=== PATIENT | female | born 1995 | race African-American/Black ===

== ENCOUNTER 2018-09-25 01:10 | Emergency (ER) | payer BC, OTHER ==
--- OUTSIDE RECORDS SUMMARY | 2018-09-25 01:12 | XMS REPORT ---
:1995 [facility] Address [address] [place] [address] Dr. Luevano [address] [place] [id number] Care Team Providers Name Role Phone Unavailable Unavailable Unavailable Problems This patient has no known problems. Allergies, Adverse Reactions, Alerts This patient has no known allergies or adverse reactions. Medications This patient has no known medications.
--- OUTSIDE RECORDS SUMMARY | 2018-09-25 01:12 | XMS REPORT | Clinical Summary ---
:1995 Author Organization [facility] Address [address] [place] [address] Care Team Providers Name Role Phone Yancy_Carrie Raymon A Primary Care Provider Unavailable Allergies No Known Allergies Medications Medication Sig Dispensed Refills Start Date End Date Status naproxen sodium Take 220 mg by 0 Active (ALEVE) 220 MG tablet mouth as needed for mild pain. etonogestrel 68 mg by subdermal route 0 Active implant once. Right arm implanted in November Active Problems No known active problems Social History Tobacco Use Types Packs/Day Years Used Date Never Smoker Smokeless Tobacco: Never Used Alcohol Use Drinks/Week oz/Week Comments Yes rarely Sex Assigned at Date Recorded Not on file Job Start Date Occupation Industry Not on file Not on file Not on file Travel History Travel Start Travel End No recent travel history available. Last Filed Vital Signs Not on file Plan of Treatment Health Maintenance Due Date Last Done Comments CHLAMYDIA SCREENING 2009 CERVICAL CANCER SCREENING 2014 INFLUENZA VACCINE 04/05/2018 Implants Implanted Type Area Storage Manager Device Shelf Model / Identifier Expiration Serial / Date Lot Catheter Angio Beam Department Supervisor Ii 5fr 65cm Selc Braidd Torque [place] - [id number] Surgical N/A: N/A [facility] PER[facility]HERAL [id number] / Implanted: 06/25/2016 (Quantity not on file) Implants; INTERVENTION / Expanders; VASCULAR CARMELLA Extenders; Surgical Wires Catheter Hand Button Splitter Tracy 6fr 75cm [id number] 0.035in H-Pres - [id number] Surgical N/A : N/A JERRY [id number] / Implanted: 06/25/2016 (Quantity not on file) Implants; SCIENTIFIC ANDREINA / Expanders; Extenders; Surgical Wires Cath Hand Button Splitter 7fr Ball 80cm X 2.0 12mm Advance 35lp - [id number] Surgical N/A: N/A COOK PERIPHERAL [id number] / Implanted: 06/25/2016 (Quantity not on file) Implants; INTERVENTION / Expanders; Extenders; Surgical Wires Results Not on fileafter 09/24/2017 Insurance Payer Benefit Plan / Group Subscriber ID Type Phone Address BCBS BCBS CHOICE PPO/FEDERAL EMPL PPO xxxxxxxxxxxx PPO Advance Directives Patient has advance care planning documents on file. For more information, please contact:Dominick Beckham[address] [place] [address]
[2018-09-25] MEDS ORDERED: ONDANSETRON 4 MG/2 ML VIAL ONE (01:40)
[2018-09-25] MEDS ORDERED: NA CHLORIDE 0.9% 1,000 ML ONE (01:40)
[2018-09-25] MEDS ORDERED: KETOROLAC 30 MG/ML INJ ONE (01:40)
[2018-09-25 02:27] LABS: Absolute Lymphocytes (CBC) 4.2 K/uL (0.7-4.9); Absolute Monocytes 0.5 K/uL (0.1-1.3); Absolute Neutrophil 4.4 K/uL (1.8-8.0); Basophils % 2.5 % (0-1.3); Eosinophils % 2.2 % (0-4.4); Hematocrit 35.2 % (36.0-45.0); Lymphocytes % 43.8 % (15.3-44.8); MPV 9.4 fL (7.6-11.3); Monocytes % 5.5 % (3.3-12.3); RBC Red Blood Cell Count 5.19 M/uL (3.86-4.86)
--- NOTE | 2018-09-25 03:13 | ER ---
Nurse's Notes [facility] Name: Cher Ragland Age: 22 yrs Sex: Female : 1995 Arrival Date: 09/25/2018 Time: 01:12 Bed 26 Private MD: Jerardo Alcantar K Diagnosis: Other abdominal pain;Constipation;Nausea and vomiting Presentation: 09/25 01:33 Presenting complaint: Patient states: i have RUQ pain radiating to my chest wall for mg2 the last 30 mins. denies n/v. Transition of care: patient was not received from another setting of care. Onset of symptoms was September 25, 2018 at 01:00. Risk Assessment: Do you want to hurt yourself or someone else? Patient reports no desire to harm self or others. Initial Sepsis Screen: Does the patient meet any 2 criteria? No. Patient's initial sepsis screen is negative. Does the patient have a suspected source of infection? No. Patient's initial sepsis screen is negative. Care prior to arrival: None. 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 - Social history:: Smoking status: Patient/guardian denies using tobacco, Patient/guardian denies using alcohol, street drugs, IV drugs. - Ebola Screening: : No symptoms or risks identified at this time. Screenin:39 Abuse screen: Denies threats or abuse. Denies injuries from another. Nutritional mg2 screening: No deficits noted. Tuberculosis screening: No symptoms or risk factors identified. Fall Risk IV access (20 points). Assessment: 01:36 Reassessment: No changes from previously documented assessment. Pain: Complains of pain tl3 in right upper quadrant Pain began 30 min ago. Neuro: Level of Consciousness is awake, alert, obeys commands, Oriented to person, place, time, situation, Appropriate for age. Cardiovascular: Patient's skin is warm and dry. Respiratory: Airway is patent Respiratory effort is even, unlabored, Respiratory pattern is regular, symmetrical. GI: Bowel sounds present X 4 quads. Abdomen is tender to palpation in right upper quadrant. 01:38 General: Appears in no apparent distress. comfortable, Behavior is calm, cooperative. mg2 Pain: Complains of pain in abdomen Pain radiates to chest Pain currently is 8 out of 10 on a pain scale. Quality of pain is described as aching, Pain began gradually, 30 min ago. Is intermittent. Neuro: Level of Consciousness is awake, alert, obeys commands, Oriented to person, place, time, situation. Cardiovascular: Capillary refill < 3 seconds Patient's skin is warm and dry. Respiratory: Airway is patent Respiratory effort is even, unlabored, Respiratory pattern is regular, symmetrical. GI: Abdomen is round non-distended, Reports upper abdominal pain. : No signs and/or symptoms were reported regarding the genitourinary system. EENT: No signs and/or symptoms were reported regarding the EENT system. Derm: Skin is intact, is healthy with good turgor, Skin is pink, warm \T\ dry. normal. Musculoskeletal: Circulation, motion, and sensation intact. Capillary refill < 3 seconds. 03:07 Reassessment: Patient appears in no apparent distress at this time. No changes from tl3 previously documented assessment. Patient and/or family updated on plan of care and expected duration. Pain level reassessed. Patient is alert, oriented x 3, equal unlabored respirations, skin warm/dry/pink. no needs at this time. 03:35 Reassessment: Patient appears in no apparent distress at this time. No changes from tl3 previously documented assessment. Patient and/or family updated on plan of care and expected duration. Pain level reassessed. Patient is alert, oriented x 3, equal unlabored respirations, skin warm/dry/pink. 03:35 Reassessment: Discussed lab and radiology studies with pt and family. tl3 Vital Signs: 01:34 BP 105 / 65; Pulse 63; Resp 18; Temp 97; Pulse Ox 99% on R/A; Weight 77.11 kg; Height 5 mg2 ft. 2 in. (157.48 cm); Pain 8/10; 03:07 Pulse 62; Resp 18 S; Pulse Ox 99% on R/A; tl3 03:18 BP 115 / 78; tl3 03:35 BP 112 / 72; Pulse 53; Resp 16; Pulse Ox 100% on R/A; tl3 01:34 Body Mass Index 31.09 (77.11 kg, 157.48 cm) mg2 ED Course: 01:12 Patient arrived in ED. am2 01:12 Jerardo Alcantar MD is Private Physician. am2 01:15 Junior Lemon MD is Attending Physician. ps1 01:27 Loyda Lazo RN is Primary Nurse. tl3 01:34 Triage completed. mg2 01:37 Arm band placed on. mg2 01:38 No provider procedures requiring assistance completed. Inserted saline lock: 20 gauge mg2 in right forearm, using aseptic technique. Blood collected. 01:39 Patient has correct armband on for positive identification. Pulse ox on. NIBP on. Door mg2 closed. Warm blanket given. 02:[address] via wheelchair. kw1 02:30 CT completed. Patient vomited copious amounts directly after the arterial phase of the kw1 exam. Was able to complete the exam. Patient moved back from CT. 02:48 Urine --Ancillary (enter results) Sent. tl3 02:48 Urine Dipstick--Ancillary (enter results) Sent. tl3 02:48 CT Abd/Pelvis - W/Contrast Sent. tl3 02:48 CMP Sent. tl3 02:48 CBC with Diff Sent. tl3 02:49 Lipase Sent. tl3 03:39 IV discontinued, intact, bleeding controlled, No redness/swelling at site. Pressure tl3 dressing applied. Administered Medications: 01:34 Drug: Zofran 4 mg Route: PO; tl3 03:06 Follow up: Response: No adverse reaction tl3 01:35 Drug: NS 0.9% 1000 ml Route: IV; Rate: 1 bolus; Site: right antecubital; Delivery: tl3 Primary tubing; 03:40 Follow up: IV Status: Completed infusion; IV Intake: 1000ml tl3 02:30 Drug: TORadol 30 mg Route: IVP; Site: right antecubital; tl3 03:07 Follow up: Response: No adverse reaction tl3 Intake: 03:40 IV: 1000ml; Total: 1000ml. tl3 Outcome: 03:12 Discharge ordered by . ps1 03:39 Discharged to home ambulatory. tl3 03:39 Condition: stable 03:39 Discharge instructions given to patient, family, Instructed on discharge instructions, follow up and referral plans. medication usage, Demonstrated understanding of instructions, follow-up care, medications, Prescriptions given X 3. 03:40 Patient left the ED. tl3 Signatures: Mally Pinto Phillip, MD MD ps1 Devora Shore1 Loyda Lazo, RN RN tl3 Jose Alfredo Portillo RN RN mg2
--- NOTE | 2018-09-25 03:13 | EDPHYS ---
Physician Documentation [facility] Name: Cher Ragland Age: 22 yrs Sex: Female : 1995 Arrival Date: 09/25/2018 Time: 01:12 Bed 26 Private MD: Jerardo Alcantar K ED Physician Junior Lemon HPI: 09/25 03:05 This 22 yrs old Black Female presents to ER via Ambulatory with complaints of Abdominal ps1 Pain. 03:06 patient states that she has had abdominal pain that started this morning that woke her ps1 up. She states that she ate taco soup earlier in the evening. She states that her pain localizes to the RUQ. She had a a month ago without complication. Pain rated as moderate. No fever. . 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 - Social history:: Smoking status: Patient/guardian denies using tobacco, Patient/guardian denies using alcohol, street drugs, IV drugs. - Ebola Screening: : No symptoms or risks identified at this time. ROS: 03:06 Constitutional: Negative for fever, chills, and weight loss, Eyes: Negative for injury, ps1 pain, redness, and discharge, Cardiovascular: Negative for chest pain, palpitations, and edema, Respiratory: Negative for shortness of breath, cough, wheezing, and pleuritic chest pain, MS/Extremity: Negative for injury and deformity, Skin: Negative for injury, rash, and discoloration, Neuro: Negative for headache, weakness, numbness, tingling, and seizure, Psych: Negative for depression, anxiety, suicide ideation, homicidal ideation, and hallucinations. 03:06 Abdomen/GI: Positive for abdominal pain. Exam: 03:06 Constitutional: This is a well developed, well nourished patient who is awake, alert, ps1 and in no acute distress. Head/Face: Normocephalic, atraumatic. Chest/axilla: Normal chest wall appearance and motion. Nontender with no deformity. No lesions are appreciated. Cardiovascular: Regular rate and rhythm. No gallops, murmurs, or rubs. Normal PMI, no JVD. No pulse deficits. Respiratory: Lungs have equal breath sounds bilaterally, clear to auscultation and percussion. No rales, rhonchi or wheezes noted. No increased work of breathing, no retractions or nasal flaring. Skin: Warm, dry with normal turgor. Normal color with no rashes, no lesions, and no evidence of cellulitis. MS/ Extremity: Pulses equal, no cyanosis. Neurovascular intact. Full, normal range of motion. Neuro: Awake and alert, GCS 15, oriented to person, place, time, and situation. Cranial nerves II-XII grossly intact. Sensory grossly intact. 03:06 Abdomen/GI: Inspection: abdomen appears normal, Bowel sounds: normal, Palpation: mild abdominal tenderness, in the right upper quadrant, POCUS ultrasound performed at bedside of Gallbladder. No PCF, GB wall appears normal. CBD appears normal. Small amount of sludge. Overall impression: normal GB. . Vital Signs: 01:34 BP 105 / 65; Pulse 63; Resp 18; Temp 97; Pulse Ox 99% on R/A; Weight 77.11 kg; Height 5 mg2 ft. 2 in. (157.48 cm); Pain 8/10; 03:07 Pulse 62; Resp 18 S; Pulse Ox 99% on R/A; tl3 03:18 BP 115 / 78; tl3 03:35 BP 112 / 72; Pulse 53; Resp 16; Pulse Ox 100% on R/A; tl3 01:34 Body Mass Index 31.09 (77.11 kg, 157.48 cm) mg2 MDM: 01:24 Patient medically screened. ps1 03:06 Data reviewed: vital signs, nurses notes, lab test result(s), radiologic studies, and ps1 as a result, I will discharge patient. 09/25 01:23 Order name: CBC with Diff ps1 09/25 01:23 Order name: Lipase ps1 09/25 01:23 Order name: CMP ps1 09/25 02:08 Order name: Urine Dipstick--Ancillary (enter results) 09/25 02:08 Order name: Urine --Ancillary (enter results) 09/25 02:30 Order name: CBC with Automated Diff EDMS 09/25 01:23 Order name: IV Saline Lock; Complete Time: 01:27 [facility] 09/25 01:23 Order name: Labs collected and sent; Complete Time: 01:28 [facility] 09/25 01:23 Order name: CT Abd/Pelvis - W/Contrast [facility] 09/25 01:24 Order name: Urine Dipstick-Ancillary (obtain specimen); Complete Time: 02:48 ps1 09/25 01:24 Order name: Urine Test (obtain specimen); Complete Time: 02:48 ps1 Administered Medications: 01:34 Drug: Zofran 4 mg Route: PO; tl3 03:06 Follow up: Response: No adverse reaction tl3 01:35 Drug: NS 0.9% 1000 ml Route: IV; Rate: 1 bolus; Site: right antecubital; Delivery: tl3 Primary tubing; 03:40 Follow up: IV Status: Completed infusion; IV Intake: 1000ml tl3 02:30 Drug: TORadol 30 mg Route: IVP; Site: right antecubital; tl3 03:07 Follow up: Response: No adverse reaction tl3 Disposition: 09/25/18 03:12 Discharged to Home. Impression: Other abdominal pain, Constipation, Nausea and vomiting. - Condition is Stable. - Discharge Instructions: Abdominal Pain, Adult, Nausea and Vomiting, Adult. - Prescriptions for magnesium citrate - take 300 milliliter by ORAL route one time; 300 milliliter. Bentyl 10 mg Oral Capsule - take 1 capsule by ORAL route every 6 hours As needed; 40 capsule. Zofran 4 mg Oral Tablet - take 1 tablet by ORAL route every 12 hours As needed; 20 tablet. - Medication Reconciliation Form, Thank You Letter, Antibiotic Education, Prescription Opioid Use, Family Work Release form. - Follow up: Private Physician; When: As needed; Reason: Further diagnostic work-up, Recheck today's complaints, Continuance of care, Re-evaluation by your physician. Follow up: Emergency Department; When: As needed; Reason: Fever > 102 F, Worsening of condition. - Problem is new. - Symptoms are unchanged. Signatures: Dispatcher [employer] EDGA Junior Lemon MD MD ps1 Loyda Lazo RN RN tl3 Jose Alfredo Portillo RN RN mg2 Corrections: (The following items were deleted from the chart) 03:40 03:12 09/25/2018 03:12 Discharged to Home. Impression: Other abdominal pain; tl3 Constipation; Nausea and vomiting. Condition is Stable. Forms are Medication Reconciliation Form, Thank You Letter, Antibiotic Education, Prescription Opioid Use. Follow up: Private Physician; When: As needed; Reason: Further diagnostic work-up, Recheck today's complaints, Continuance of care, Re-evaluation by your physician. Follow up: Emergency Department; When: As needed; Reason: Fever > 102 F, Worsening of condition. Problem is new. Symptoms are unchanged. ps1
[2018-09-25 03:51] LABS: Albumin 3.2 g/dL (3.4-5.0); Bilirubin Total 0.2 mg/dL (0.2-1.0); Potassium 3.8 mmol/L (3.5-5.1); Protein, Total 7.2 g/dL (6.4-8.2)
[2018-09-25 03:54] LABS: Blood Morphology Comment NOTED (NOT SEEN); Hypochromasia 1+; Platelet Estimate ADEQ; Urine White Blood Cell Casts OK
[2018-09-25 03:55] LABS: Urine Blood TRACE (NEG); Urine Glucose NEGATIVE (NEG); Urine Protein 1+ (NEG); Urine Specific Gravity 1.025 (1.005-1.030); Urine pH 5.5 (5.0-7.0)
--- NOTE | 2018-09-25 08:04 | RAD REPORT ---
EXAM DESCRIPTION: CT - Abdomen Pelvis W Contrast - 09/25/2018 6:49 am CLINICAL HISTORY: Abdominal pain. Right upper quadrant pain COMPARISON: None. TECHNIQUE: Computed axial tomography of the abdomen and pelvis was obtained. 100 cc Isovue-300 is ad ministered intravenously. Oral contrast was given. A preliminary report was generated by [facility] and reviewed prior to dictation All CT scans are performed using dose optimization technique as appropriate and may include automated exposure control or mA/KV adjustment according to patient size. FINDINGS: The liver, spleen, pancreas, adrenals and kidneys appear unremarkable. The appendix is normal caliber. There is no evidence of diverticulitis The uterus is somewhat lobulated perhaps secondary to fibroids. A moderate amount stool is present throughout colon A tiny umbilical hernia is present IMPRESSION: Moderate amount stool present throughout the colon
== END 2018-09-25 03:40 | disposition home or self-care (01) ==
LOC: ER 01:10
DX: K59.00 Constipation, unspecified (principal); R11.2 Nausea with vomiting, unspecified
CPT/HCPCS: 36415; 74177; 80053; 81003; 81025; 83690; 85025; J2405; J7030; Q9967

== ENCOUNTER 2018-09-27 19:42 | Emergency (ER) | payer OTHER ==
--- OUTSIDE RECORDS SUMMARY | 2018-09-27 19:45 | XMS REPORT | Clinical Summary ---
:1995 Author Organization [facility] Address [address] [place] [address] Care Team Providers Name Role Phone Yancy_Carrie [...] INFLUENZA VACCINE 04/05/2018 Implants Implanted Type Area Community Liaison Officer Device Shelf Model / Identifier Expiration Serial / Date Lot Catheter Angio Hematology Technician Ii 5fr 65cm Selc Braidd Torque [place] - [id number] Surgical N/A: N/A [facility] PERIPHERAL [id number] / Implanted: 06/25/2016 (Quantity not on file) Implants; INTERVENTION / Expanders; VASCULAR CARMELLA Extenders; Surgical Wires Catheter Wardrobe Coordinator [place] 6fr 75cm [id number] 0.035in H-Pres - [id number] Surgical N/A : N/A JERRY [id number] / Implanted: 06/25/2016 (Quantity not on file) Implants; SCIENTIFIC ANDREINA / Expanders; Extenders; Surgical Wires Cath Wardrobe Coordinator 7fr Ball 80cm X 2.0 12mm Advance 35lp - [id number] Surgical N/A: N/A [employer] PERIPHERAL [id number] / Implanted: 06/25/2016 (Quantity not on file) Implants; INTERVENTION / Expanders; Extenders; Surgical Wires Results Not on fileafter 09/26/2017 Insurance Payer Benefit Plan / Group Subscriber ID Type Phone Address BCBS BCBS CHOICE PPO/FEDERAL EMPL PPO xxxxxxxxxxxx PPO Advance Directives Patient has advance care planning documents on file. For more information, please contact:Dominick Beckham[address] [place] [address]
--- OUTSIDE RECORDS SUMMARY | 2018-09-27 19:45 | XMS REPORT ---
:1995 [facility] Address [address] [place] [address] Dr. Luevano [address] [place] [id number] Care Team Providers Name Role Phone Unavailable Unavailable Unavailable Problems This patient has no known problems. Allergies, Adverse Reactions, Alerts This patient has no known allergies or adverse reactions. Medications This patient has no known medications.
--- NOTE | 2018-09-27 21:12 | ER ---
Nurse's Notes [facility] Name: Cher Ragland Age: 22 yrs Sex: Female : 1995 Arrival Date: 09/27/2018 Time: 19:45 Bed 23 Private MD: Diagnosis: Influenza like illness Presentation: 09/27 20:06 Presenting complaint: Patient states: Reports runny nose, cough, body aches, and low aj grade fever since yesterday. Transition of care: patient was not received from another setting of care. Onset of symptoms was September 26, 2018. Risk Assessment: Do you want to hurt yourself or someone else? Patient reports no desire to harm self or others. Initial Sepsis Screen: Does the patient meet any 2 criteria? No. Patient's initial sepsis screen is negative. Does the patient have a suspected source of infection? No. Patient's initial sepsis screen is negative. Care prior to arrival: None. 20:06 Method Of Arrival: Ambulatory 20:06 Acuity: MANAV 4 Triage Assessment: 20:07 Headache History: The patient has had previous headaches and this one is similar to previous episodes. General: Appears in no apparent distress. comfortable, Behavior is calm, cooperative, appropriate for age. Pain: Complains of pain in face. EENT: Reports nasal congestion nasal discharge. Neuro: Level of Consciousness is awake, alert, obeys commands, Oriented to person, place, time, situation, Appropriate for age. Respiratory: Reports cough that is Airway is patent Respiratory effort is even, unlabored, Respiratory pattern is regular, symmetrical. Derm: Skin is intact, is healthy with good turgor, Skin is pink, warm \T\ dry. normal. 21:38 Pain: Pain Pain began gradually, Also complains of. 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 - Social history:: Smoking status: Patient/guardian denies using tobacco. - Ebola Screening: : Patient negative for fever greater than or equal to 101.5 degrees Fahrenheit, and additional compatible Ebola Virus Disease symptoms Patient denies exposure to infectious person Patient denies travel to an Ebola-affected area in the 21 days before illness onset No symptoms or risks identified at this time. Screenin:36 Abuse screen: Denies threats or abuse. Nutritional screening: No deficits noted. tl3 Tuberculosis screening: No symptoms or risk factors identified. Fall Risk None identified. Assessment: 20:36 General: Appears in no apparent distress. Behavior is calm, cooperative, appropriate tl3 for age. Pain: Denies pain. Neuro: Level of Consciousness is awake, alert, obeys commands, Oriented to person, place, time, situation, Appropriate for age. Cardiovascular: Patient's skin is warm and dry. Respiratory: Airway is patent Respiratory effort is even, unlabored, Respiratory pattern is regular, symmetrical. GI: No signs and/or symptoms were reported involving the gastrointestinal system. : No signs and/or symptoms were reported regarding the genitourinary system. EENT: Nares with drainage noted. Derm: Skin temperature is warm. Musculoskeletal: No signs and/or symptoms reported regarding the musculoskeletal system. 21:37 Reassessment: No changes from previously documented assessment. Patient and/or family tl3 updated on plan of care and expected duration. Pain level reassessed. Patient is alert, oriented x 3, equal unlabored respirations, skin warm/dry/pink. Vital Signs: 20:07 BP 129 / 78; Pulse 95; Resp 20; Temp 99.2; Pulse Ox 99% on R/A; Weight 77.11 kg; Height aj 5 ft. 2 in. (157.48 cm); 20:07 Body Mass Index 31.09 (77.11 kg, 157.48 cm) aj ED Course: 19:45 Patient arrived in ED. ds1 20:07 Triage completed. aj 20:07 Arm band placed on right wrist. Patient placed in waiting room, Patient notified of aj wait time. Labs ordered per protocol. 20:24 Abhilash Davis PA is PHCP. cp 20:24 Abhilash Milton MD is Attending Physician. cp 20:33 Loyda Lazo, JOSY is Primary Nurse. tl3 20:36 Patient has correct armband on for positive identification. Bed in low position. Call tl3 light in reach. Adult w/ patient. 20:36 No provider procedures requiring assistance completed. Patient did not have IV access tl3 during this emergency room visit. Administered Medications: No medications were administered Outcome: 21:11 Discharge ordered by . kaity 21:37 Discharged to home ambulatory. tl3 21:37 Condition: stable 21:37 Instructed on discharge instructions, follow up and referral plans. Demonstrated understanding of instructions, follow-up care, medications. 21:40 Patient left the ED. tl3 Signatures: Mally Hall RN RN Yanci Huitron ds1 Abhilash Davis PA PA cp Lowrey, Tammy, RN RN tl3
--- NOTE | 2018-09-27 21:12 | EDPHYS ---
Physician Documentation [facility] Name: Cher Ragland Age: 22 yrs Sex: Female : 1995 Arrival Date: 09/27/2018 Time: 19:45 Bed 23 Private MD: ED Physician Abhilash Milton HPI: 09/27 20:45 This 22 yrs old Black Female presents to ER via Ambulatory with complaints of Body cp Aches, Headache. 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 - Social history:: Smoking status: Patient/guardian denies using tobacco. - Ebola Screening: : Patient negative for fever greater than or equal to 101.5 degrees Fahrenheit, and additional compatible Ebola Virus Disease symptoms Patient denies exposure to infectious person Patient denies travel to an Ebola-affected area in the 21 days before illness onset No symptoms or risks identified at this time. ROS: 20:50 Constitutional: Positive for body aches, Negative for fever, poor PO intake. cp 20:50 Eyes: Negative for injury, pain, redness, and discharge. cp 20:50 ENT: Positive for sore throat, Negative for drainage from ear(s), ear pain, difficulty cp swallowing, difficulty handling secretions. 20:50 Cardiovascular: Negative for chest pain, edema, palpitations. 20:50 Respiratory: Positive for cough, Negative for shortness of breath, wheezing. 20:50 Abdomen/GI: Negative for abdominal pain, nausea, vomiting, and diarrhea. 20:50 Skin: Negative for cellulitis, rash. 20:50 Neuro: Positive for headache, Negative for altered mental status, weakness. 20:50 All other systems are negative. Exam: 20:55 Constitutional: The patient appears in no acute distress, alert, awake, non-toxic, well cp developed, well nourished. 20:55 Head/Face: Normocephalic, atraumatic. cp 20:55 Eyes: Periorbital structures: appear normal, Conjunctiva: normal, no exudate, no injection, Lids and lashes: appear normal, bilaterally. 20:55 ENT: External ear(s): are unremarkable, Ear canal(s): are normal, clear, TM's: bulging, is not appreciated, bilaterally, dullness, bilaterally, erythema, is not appreciated, bilaterally, Nose: is normal, Mouth: Lips: moist, Oral mucosa: moist, Posterior pharynx: Airway: no evidence of obstruction, patent, Tonsils: no enlargement, no exudate, swelling, is not appreciated, erythema, that is mild, exudate, is not appreciated. 20:55 Neck: ROM/movement: is normal, is supple, without pain, no range of motions limitations, no meningismus, no nuchal rigidity, Lymph nodes: no appreciated lymphadenopathy. 20:55 Chest/axilla: Normal chest wall appearance and motion. Nontender with no deformity. cp No lesions are appreciated. 20:55 Cardiovascular: Rate: normal, Rhythm: regular, JVD: is not appreciated. 20:55 Respiratory: the patient does not display signs of respiratory distress, Respirations: normal, no use of accessory muscles, no retractions, no splinting, no tachypnea, labored breathing, is not present, Breath sounds: bronchial sounds, are not appreciated, decreased breath sounds, are not appreciated, stridor, is not appreciated, wheezing: is not appreciated. 20:55 Abdomen/GI: Exam negative for discomfort, distension, guarding, Inspection: abdomen appears normal. 20:55 Skin: cellulitis, is not appreciated, no rash present. 20:55 Neuro: Orientation: to person, place \T\ time. Mentation: is normal, Cerebellar function: is grossly normal, Motor: moves all fours, strength is normal, Sensation: is normal. Vital Signs: 20:07 BP 129 / 78; Pulse 95; Resp 20; Temp 99.2; Pulse Ox 99% on R/A; Weight 77.11 kg; Height aj 5 ft. 2 in. (157.48 cm); 20:07 Body Mass Index 31.09 (77.11 kg, 157.48 cm) aj MDM: 20:24 Patient medically screened. cp 21:10 Data reviewed: vital signs, nurses notes, lab test result(s), and as a result, I will cp discharge patient. 21:10 Differential diagnosis: bronchitis, flu, URI, strep throat. Counseling: I had a cp detailed discussion with the patient and/or guardian regarding: the historical points, exam findings, and any diagnostic results supporting the discharge/admit diagnosis, lab results, to return to the emergency department if symptoms worsen or persist or if there are any questions or concerns that arise at home. 09/27 20:09 Order name: Flu; Complete Time: 21:04 09/27 21:04 Interpretation: Reviewed. cp 09/27 20:09 Order name: Strep; Complete Time: 20:49 09/27 20:49 Interpretation: Reviewed. cp 09/27 20:42 Order name: Throat Culture EDMS Administered Medications: No medications were administered Disposition: 09/28 09:01 Co-signature as Attending Physician, Abhilash Milton MD I agree with the assessment and [facility] plan of care. Disposition: 09/27/18 21:11 Discharged to Home. Impression: Influenza like illness. - Condition is Stable. - Discharge Instructions: Influenza, Adult. - Prescriptions for Tamiflu 75 mg Oral Capsule - take 1 tablet by ORAL route every 12 hours for 5 days; 10 tablet. - Medication Reconciliation Form, Thank You Letter, Antibiotic Education, Prescription Opioid Use form. - Follow up: Private Physician; When: 2 - 3 days; Reason: Recheck today's complaints. - Problem is new. - Symptoms have improved. Signatures: Dispatcher [employer] EDMally Zheng, Abhilash Obregon RN, MD MD cha Page, Corey, PA PA cp Lowrey, Tammy, RN RN tl3 Corrections: (The following items were deleted from the chart) 09/27 21:40 21:11 09/27/2018 21:11 Discharged to Home. Impression: Influenza like illness. tl3 Condition is Stable. Forms are Medication Reconciliation Form, Thank You Letter, Antibiotic Education, Prescription Opioid Use. Follow up: Private Physician; When: 2 - 3 days; Reason: Recheck today's complaints. Problem is new. Symptoms have improved. cp
== END 2018-09-27 21:40 | disposition home or self-care (01) ==
LOC: ER 19:42
DX: J11.1 Influenza due to unidentified influenza virus with other respiratory manifestations (principal)
CPT/HCPCS: 87070; 87081; 87804; 99283

== ENCOUNTER 2018-11-15 21:12 | Emergency (ER) | payer OTHER, SELFPAY ==
--- OUTSIDE RECORDS SUMMARY | 2018-11-15 21:14 | XMS REPORT ---
:1995 [facility] Address [address] [place] [address] Dr. Luevano [address] [place] [id number] Care Team Providers Name Role Phone Unavailable Unavailable Unavailable Problems This patient has no known problems. Allergies, Adverse Reactions, Alerts This patient has no known allergies or adverse reactions. Medications This patient has no known medications.
--- OUTSIDE RECORDS SUMMARY | 2018-11-15 21:14 | XMS REPORT | Clinical Summary ---
:1995 Author Organization [facility] Address [address] [place] [address] Care Team Providers Name Role Phone Yancy_Carrie [...] INFLUENZA VACCINE 04/05/2018 Implants Implanted Type Area Folded Cloth Taper Device Shelf Model / Identifier Expiration Serial / Date Lot Catheter Angio Anatomical Embalmer Ii 5fr 65cm Selc Braidd Torque [place] - [id number] Surgical N/A: N/A [facility] [place] PERIPHERAL [id number] / Implanted: 06/25/2016 (Quantity not on file) Implants; INTERVENTION / Expanders; VASCULAR CARMELLA Extenders; Surgical Wires Catheter Accounting Machine Mechanic Coyle 6fr 75cm [id number] 0.035in H-Pres - [id number] Surgical N/A : N/A [id number] / Implanted: 06/25/2016 (Quantity not on file) Implants; SCIENTIFIC ANDREINA / Expanders; Extenders; Surgical Wires Cath Accounting Machine Mechanic 7fr Ball 80cm X 2.0 12mm Advance 35lp - [id number] Surgical N/A: N/A [employer] PERIPHERAL [id number] / Implanted: 06/25/2016 (Quantity not on file) Implants; INTERVENTION / Expanders; Extenders; Surgical Wires Results Not on fileafter 11/14/2017 Insurance Payer Benefit Plan / Group Subscriber ID Type Phone Address BCBS BCBS CHOICE PPO/FEDERAL EMPL PPO xxxxxxxxxxxx PPO Advance Directives Patient has advance care planning documents on file. For more information, please contact:Dominick Beckham[address] [place] [address]
[2018-11-15 22:28] LABS: Urine Blood NEGATIVE (NEG); Urine Glucose NEGATIVE (NEG); Urine Protein TRACE (NEG); Urine Specific Gravity 1.025 (1.005-1.030)
[2018-11-15 22:33] LABS: Protime INR 1.04
[2018-11-15 22:39] LABS: Barbiturates NEGATIVE (NEGATIVE); Benzodiazepines NEGATIVE (NEGATIVE); Cocaine NEGATIVE (NEGATIVE); METHAMPHETAM NEGATIVE (NEGATIVE); Methadone NEGATIVE (NEGATIVE); Opiates NEGATIVE (NEGATIVE); Phencyclidine NEGATIVE (NEGATIVE); THC Cannibis NEGATIVE (NEGATIVE)
[2018-11-15 22:40] LABS: Absolute Monocytes 0.7 K/uL (0.1-1.3); Absolute Neutrophil 10.5 K/uL (1.8-8.0); Basophils % 0.3 % (0-1.3); Eosinophils % 0.3 % (0-4.4); Hematocrit 35.7 % (36.0-45.0); Lymphocytes % 15.3 % (15.3-44.8); Monocytes % 5.6 % (3.3-12.3); RBC Red Blood Cell Count 5.31 M/uL (3.86-4.86)
[2018-11-15 22:48] LABS: ALT/SGPT 38 U/L (12-78); AST/SGOT 21 U/L (15-37); Albumin 3.8 g/dL (3.4-5.0); Alkaline Phosphatase 85 U/L (45-117); BUN Blood Urea Nitrogen 18 mg/dL (7-18); Bicarbonate 22 mmol/L (21-32); Bilirubin Direct < 0.1 mg/dL (0-0.2); Bilirubin Total 0.2 mg/dL (0.2-1.0); Glucose Level 114 mg/dL (74-106); Potassium 3.8 mmol/L (3.5-5.1); Protein, Total 8.2 g/dL (6.4-8.2); Sodium Level 141 mmol/L (136-145)
[2018-11-15 23:37] LABS: Blood Morphology Comment NOTED (NOT SEEN); Hypochromasia 1+; Platelet Estimate ADEQ; Urine White Blood Cell Casts OK
--- NOTE | 2018-11-16 01:44 | ER ---
Nurse's Notes [facility] Name: Cher Ragland Age: 22 yrs Sex: Female : 1995 Arrival Date: 11/15/2018 Time: 21:20 Bed 17 Private MD: Diagnosis: mood disturbance Presentation: 11/15 21:23 Presenting complaint: EMS states: She was diagnosed with PPD and tonight when she got ed1 home from work she told her significant other that she needed to have a little alone time and if he could watch the baby. The significant other called his mother and she came to the house threatening to take the baby and they got into an argument. Patient tried to take 3 Ibuprofen tablets but did not swallow them. [facility] on scene, said they would notify [facility]. Pt denies SI and HI at this time. Transition of care: patient was not received from another setting of care. Onset of symptoms was November 15, 2018. Risk Assessment: Do you want to hurt yourself or someone else? Patient reports no desire to harm self or others. Initial Sepsis Screen: Does the patient meet any 2 criteria? No. Patient's initial sepsis screen is negative. Does the patient have a suspected source of infection? No. Patient's initial sepsis screen is negative. Care prior to arrival: None. 21:23 Method Of Arrival: EMS: [facility] ed1 21:23 Acuity: MANAV 3 ed1 Triage Assessment: 21:31 General: Appears comfortable, Behavior is calm, cooperative. Pain: Denies pain. EENT: ed1 No signs and/or symptoms were reported regarding the EENT system. Neuro: Level of Consciousness is awake, alert, obeys commands, Oriented to person, place, time, situation. Cardiovascular: Denies chest pain, Heart tones S1 S2 present. Respiratory: Airway is patent Respiratory effort is even, unlabored, Respiratory pattern is regular, symmetrical, Breath sounds are clear bilaterally. GI: No signs and/or symptoms were reported involving the gastrointestinal system. : No signs and/or symptoms were reported regarding the genitourinary system. Derm: Skin is healthy with good turgor, Skin is dry, Skin is normal, Skin temperature is warm abrasion to left wrist. Musculoskeletal: Circulation, motion, and sensation intact. Range of motion: intact in all extremities. 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 - Social history:: Smoking status: Patient/guardian denies using tobacco. - Ebola Screening: : Patient negative for fever greater than or equal to 101.5 degrees Fahrenheit, and additional compatible Ebola Virus Disease symptoms Patient denies exposure to infectious person Patient denies travel to an Ebola-affected area in the 21 days before illness onset No symptoms or risks identified at this time. Screenin:44 Abuse screen: Denies threats or abuse. Denies injuries from another. Nutritional ed1 screening: No deficits noted. Tuberculosis screening: No symptoms or risk factors identified. Fall Risk None identified. Assessment: 21:44 General: See triage assessment. Sylvia at bedside. ed1 23:15 Reassessment: Patient appears in no apparent distress at this time. Patient and/or ed1 family updated on plan of care and expected duration. Pain level reassessed. Patient is alert, oriented x 3, equal unlabored respirations, skin warm/dry/pink. [facility] notified. Patient denies pain at this time. 11/16 01:02 Reassessment: Patient appears in no apparent distress at this time. Spoke with Augusta do at [facility] and she stated "I see the request was received at 2314 but I can not provide an ETA for a screener to arrive at your facility. Respiratory: Airway is patent Respiratory effort is even, unlabored, Respiratory pattern is regular, symmetrical. Vital Signs: 03 21:31 BP 119 / 102; Pulse 104; Resp 20; Temp 98.5(O); Pulse Ox 97% on R/A; Weight 81.65 kg; ed1 Height 5 ft. 2 in. (157.48 cm); Pain 0/10; 23:15 BP 109 / 89; Pulse 83; Resp 19; Pulse Ox 100% on R/A; Pain 0/10; ed1 21:31 Body Mass Index 32.92 (81.65 kg, 157.48 cm) ed1 ED Course: 21:20 Patient arrived in ED. 21:23 Kiarra Stewart, RN is Primary Nurse. ed1 21:29 Triage completed. ed1 21:33 Sylvia Chawla F[facility]-C [facility]. kb 21:33 Oleg Tolliver MD is Attending Physician. kb 21:43 Arm band placed on. Family accompanied patient. ed1 21:44 Patient has correct armband on for positive identification. Bed in low position. Call ed1 light in reach. Adult w/ patient. 22:19 Initial lab(s) drawn, by me, sent to lab. Urine collected: clean catch specimen, clear. ed1 03 01:02 Appears to be sleeping. Awaiting: [facility] Screener. ed1 01:50 No provider procedures requiring assistance completed. Patient did not have IV access ed1 during this emergency room visit. Administered Medications: No medications were administered Outcome: 01:44 Discharge ordered by MD. kb 01:50 Discharged to home ambulatory, with family. ed1 01:50 Condition: good 01:50 Discharge instructions given to patient, family, Instructed on discharge instructions, follow up and referral plans. Demonstrated understanding of instructions, follow-up care. 01:51 Patient left the ED. ed1 Signatures: Sylvia Chawla FNP-C FNP-Ckb Chretien, Felicia, RN RN Kiarra Stewart, RN RN ed1
--- NOTE | 2018-11-16 01:44 | EDPHYS ---
Physician Documentation [facility] Name: Cher Ragland Age: 22 yrs Sex: Female : 1995 Arrival Date: 11/15/2018 Time: 21:20 Bed 17 Private MD: ED Physician Oleg Tolliver HPI: 11/16 00:03 This 22 yrs old Black Female presents to ER via EMS with complaints of Postpatrum kb depression. 00:03 The patient presents to the emergency department with depression, . Onset: kb The symptoms/episode began/occurred 3 month(s) ago, and became worse today. Past psychiatric history: Prior diagnosis: PPD, Psychiatric medications include: Lexapro. Associated signs and symptoms: Pertinent positives; depression, Pertinent negatives: abdominal pain, anxiety, chest pain, chills, delusions, fever, hallucinations, headache, homicidal ideation, nausea, night sweats, palpitations, paranoia, shortness of breath, substance abuse, suicide ideation, tremor, vomiting. Severity of symptoms: At their worst the symptoms were moderate in the emergency department the symptoms are unchanged. The patient has not experienced similar symptoms in the past. The patient has been recently seen by a physician:. Pt reports she has been dealing with depression since September (child is 3 months old). Pt states she just wants to be left alone and not bothered by everyone. States she does not want to harm her son and has not had thoughts of harming herself until today. Pt reports she got into an argument with son's father and his mother showed up threatening to take the baby so she got mad and put 3 600mg ibuprofen in her mouth. States "As soon as I did that, I thought about how stupid it was and took them out, but my boyfriend called 911 and they thought I needed to talk to [facility]." Pt denies homicidal or suicidal ideations. Reports she just wants to take care of her son. Pt is on Lexapro for PP depression, prescribed by OB. Thought it was working until she had the nexplanon put in and then her depression seemed to get worse. . 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 - Social history:: Smoking status: Patient/guardian denies using tobacco. - Ebola Screening: : Patient negative for fever greater than or equal to 101.5 degrees Fahrenheit, and additional compatible Ebola Virus Disease symptoms Patient denies exposure to infectious person Patient denies travel to an Ebola-affected area in the 21 days before illness onset No symptoms or risks identified at this time. ROS: 23:48 Constitutional: Negative for fever, chills, and weight loss, ENT: Negative for injury, kb pain, and discharge, Neck: Negative for injury, pain, and swelling, Cardiovascular: Negative for chest pain, palpitations, and edema, Respiratory: Negative for shortness of breath, cough, wheezing, and pleuritic chest pain, Abdomen/GI: Negative for abdominal pain, nausea, vomiting, diarrhea, and constipation, Back: Negative for injury and pain, : Negative for injury, bleeding, discharge, and swelling, MS/Extremity: Negative for injury and deformity, Skin: Negative for injury, rash, and discoloration, Neuro: Negative for headache, weakness, numbness, tingling, and seizure. 23:48 Psych: Positive for depression, Negative for anxiety, drug dependence, alcohol dependence, auditory hallucinations, visual hallucinations, homicidal ideation, insomnia, suicide gesture, suicidal ideation. Exam: 11/16 00:02 Constitutional: This is a well developed, well nourished patient who is awake, alert, kb and in no acute distress. Head/Face: Normocephalic, atraumatic. ENT: Nares patent. No nasal discharge, no septal abnormalities noted. Tympanic membranes are normal and external auditory canals are clear. Oropharynx with no redness, swelling, or masses, exudates, or evidence of obstruction, uvula midline. Mucous membranes moist. Neck: Trachea midline, no thyromegaly or masses palpated, and no cervical lymphadenopathy. Supple, full range of motion without nuchal rigidity, or vertebral point tenderness. No Meningismus. Chest/axilla: Normal chest wall appearance and motion. Nontender with no deformity. No lesions are appreciated. Cardiovascular: Regular rate and rhythm with a normal S1 and S2. No gallops, murmurs, or rubs. Normal PMI, no JVD. No pulse deficits. Respiratory: Lungs have equal breath sounds bilaterally, clear to auscultation and percussion. No rales, rhonchi or wheezes noted. No increased work of breathing, no retractions or nasal flaring. Abdomen/GI: Soft, non-tender, with normal bowel sounds. No distension or tympany. No guarding or rebound. No evidence of tenderness throughout. Skin: Warm, dry with normal turgor. Normal color with no rashes, no lesions, and no evidence of cellulitis. MS/ Extremity: Pulses equal, no cyanosis. Neurovascular intact. Full, normal range of motion. Neuro: Awake and alert, GCS 15, oriented to person, place, time, and situation. Cranial nerves II-XII grossly intact. Motor strength 5/5 in all extremities. Sensory grossly intact. Cerebellar exam normal. Normal gait. Psych: Behavior/mood is cooperative, Affect is calm, Oriented to person, place, time, Patient has no thoughts/intents to harm self or others. Judgement / Insight is normal. Memory is normal. Delusions/hallucinations are not present. Vital Signs: 11/15 21:31 BP 119 / 102; Pulse 104; Resp 20; Temp 98.5(O); Pulse Ox 97% on R/A; Weight 81.65 kg; ed1 Height 5 ft. 2 in. (157.48 cm); Pain 0/10; 23:15 BP 109 / 89; Pulse 83; Resp 19; Pulse Ox 100% on R/A; Pain 0/10; ed1 21:31 Body Mass Index 32.92 (81.65 kg, 157.48 cm) ed1 MDM: 21:33 Patient medically screened. kb 23:43 Data reviewed: vital signs, nurses notes. Data interpreted: Pulse oximetry: is 97 %. ED kb course: [facility] Scre[facility] called to come for evaluation. 11/16 00:08 ED course: Pt wants to go home to her baby. Advised that [facility] was called to come kb out and she should see them to schedule outpatient treatment. Pt in agreement. 01:40 Counseling: I had a detailed discussion with the patient and/or guardian regarding: the kb historical points, exam findings, and any diagnostic results supporting the discharge/admit diagnosis, lab results, the need for outpatient follow up, a family practitioner, a psychiatrist, to return to the emergency department if symptoms worsen or persist or if there are any questions or concerns that arise at home. ED course: Pt still denies homicidal and suicidal ideations. Will discharge home with Mother. Pt will stay with mother chung and call [facility] tomorrow. Mother agrees to watch pt. 11/15 21:54 Order name: Acetaminophen; Complete Time: 22:59 kb 11/15 21:54 Order name: Basic Metabolic Panel; Complete Time: 22:59 kb 11/15 21:54 Order name: CBC with Diff; Complete Time: 23:40 kb 11/15 21:54 Order name: ETOH Level; Complete Time: 22:59 kb 11/15 21:54 Order name: Hepatic Function; Complete Time: 22:59 kb 11/15 21:54 Order name: PT-INR; Complete Time: 22:42 kb 11/15 21:54 Order name: Urine Test (obtain specimen); Complete Time: 22:05 kb 11/15 21:54 Order name: Ptt, Activated; Complete Time: 22:42 kb 11/15 21:54 Order name: Salicylate; Complete Time: 22:59 kb 11/15 21:54 Order name: Urine Drug Screen; Complete Time: 22:42 kb 11/15 21:54 Order name: EKG; Complete Time: 21:57 kb 11/15 22:15 Order name: Urine Dipstick--Ancillary (enter results); Complete Time: 22:37 mw2 11/15 22:15 Order name: Urine --Ancillary (enter results); Complete Time: 22:37 mw2 11/15 22:46 Order name: CBC Smear Scan; Complete Time: 23:40 EDMS 11/15 21:54 Order name: EKG - Nurse/Tech; Complete Time: 23:47 kb 11/15 21:54 Order name: IV Saline Lock; Complete Time: 22:18 kb 11/15 21:54 Order name: Labs collected and sent; Complete Time: 22:18 kb 11/15 21:54 Order name: Urine Dipstick-Ancillary (obtain specimen); Complete Time: 22:18 kb Administered Medications: No medications were administered Disposition: 11/16/18 01:44 Discharged to Home. Impression: mood disturbance. - Condition is Stable. - Discharge Instructions: Depression and Baby Blues. - Medication Reconciliation Form, Thank You Letter, Antibiotic Education, Prescription Opioid Use form. - Follow up: Emergency Department; When: As needed; Reason: Worsening of condition. Follow up: Private Physician; When: 2 - 3 days; Reason: Recheck today's complaints, Continuance of care, Re-evaluation by your physician. Addendum: 11/19/2018 19:27 Co-signature as Attending Physician, Oleg Tolliver MD. g s Signatures: Dispatcher [employer] EDMS Sylvia Chawla, EXERCISE EQUIPMENT REPAIR TECHNICIAN-C EXERCISE EQUIPMENT REPAIR TECHNICIAN-Ckb Kiarra Stewart RN RN ed1 Oleg Tolliver MD MD Corrections: (The following items were deleted from the chart) 11/16 01:51 01:44 11/16/2018 01:44 Discharged to Home. Impression: mood disturbance. ed1 Condition is Stable. Forms are Medication Reconciliation Form, Thank You Letter, Antibiotic Education, Prescription Opioid Use. Follow up: Emergency Department; When: As needed; Reason: Worsening of condition. Follow up: Private Physician; When: 2 - 3 days; Reason: Recheck today's complaints, Continuance of care, Re-evaluation by your physician. kb
--- NOTE | 2018-11-16 10:37 | EKG ---
Test Date: 2018-11-15 Test Time: 23:29:04 [employer]: ZULEYKA MEASUREMENT RESULTS: Intervals: Rate: 85 TN: 142 QRSD: 78 QT: 358 QTc: 426 [place]: P: 54 TN: 142 QRS: 57 T: 34 INTERPRETIVE STATEMENTS: Sinus rhythm with marked sinus arrhythmia Nonspecific T wave abnormality Abnormal ECG Compared to ECG 05/01/2004 05:31:00 T-wave abnormality now present Electronically Signed On 11-16-18 08:13:14 CDT by Moo Jackman
== END 2018-11-16 01:51 | disposition home or self-care (01) ==
LOC: ER 21:12
DX: O90.6 Postpartum mood disturbance (principal)
CPT/HCPCS: 36415; 80048; 80076; 80307; 80320; 80329; 81003; 81025; 85025; 85610; 85730; 93005; 99283

== ENCOUNTER 2018-12-06 01:54 | Emergency (ER) | payer SELFPAY ==
--- OUTSIDE RECORDS SUMMARY | 2018-12-06 01:56 | XMS REPORT ---
:1995 [facility] Address [address] [place] [address] Dr. Luevano [address] [place] [id number] Care Team Providers Name Role Phone Unavailable Unavailable Unavailable Problems This patient has no known problems. Allergies, Adverse Reactions, Alerts This patient has no known allergies or adverse reactions. Medications This patient has no known medications.
--- OUTSIDE RECORDS SUMMARY | 2018-12-06 01:56 | XMS REPORT | Clinical Summary ---
:1995 Author Organization [facility] Address [address] [place] [address] Care Team Providers Name Role Phone Yancy_Carrie [...] INFLUENZA VACCINE 04/05/2018 Implants Implanted Type Area Bi Architect Device Shelf Model / Identifier Expiration Serial / Date Lot Catheter Angio [employer] Faculty Member Ii 5fr 65cm Selc Braidd Torque [place] - [id number] Surgical N/A: N/A [facility] PERIPHERAL [id number] / Implanted: 06/25/2016 (Quantity not on file) Implants; INTERVENTION / Expanders; VASCULAR CARMELLA Extenders; Surgical Wires Catheter Hand Heel Seat Fitter [place] 6fr 75cm [id number] 0.035in H-Pres - [id number] Surgical N/A : N/A JERRY [id number] / Implanted: 06/25/2016 (Quantity not on file) Implants; SCIENTIFIC ANDREINA / Expanders; Extenders; Surgical Wires Cath Hand Heel Seat Fitter 7fr Ball 80cm X 2.0 12mm Advance 35lp - [id number] Surgical N/A: N/A [employer] PERIPHERAL [id number] / Implanted: 06/25/2016 (Quantity not on file) Implants; INTERVENTION / Expanders; Extenders; Surgical Wires Results Not on fileafter 12/05/2017 Insurance Payer Benefit Plan / Group Subscriber ID Type Phone Address BCBS BCBS CHOICE PPO/FEDERAL EMPL PPO xxxxxxxxxxxx PPO Advance Directives Patient has advance care planning documents on file. For more information, please contact:Dominick Beckham[address] [place] [address]
[2018-12-06 02:58] LABS: Absolute Lymphocytes (CBC) 1.7 K/uL (0.7-4.9); Absolute Monocytes 0.8 K/uL (0.1-1.3); Absolute Neutrophil 6.9 K/uL (1.8-8.0); Basophils % 0.3 % (0-1.3); Eosinophils % 1.5 % (0-4.4); MPV 7.8 fL (7.6-11.3); Monocytes % 8.1 % (3.3-12.3); RBC Red Blood Cell Count 5.23 M/uL (3.86-4.86)
[2018-12-06] MEDS ORDERED: ONDANSETRON 4 MG/2 ML VIAL ONE (03:13)
[2018-12-06] MEDS ORDERED: MORPHINE 4 MG/ML SYR ONE (03:13)
[2018-12-06 03:23] LABS: Urine Blood NEGATIVE (NEG); Urine Glucose NEGATIVE (NEG); Urine Protein NEGATIVE (NEG)
[2018-12-06 03:27] LABS: ALT/SGPT 65 U/L (12-78); AST/SGOT 68 U/L (15-37); Albumin 3.8 g/dL (3.4-5.0); Alkaline Phosphatase 92 U/L (45-117); BUN Blood Urea Nitrogen 11 mg/dL (7-18); Bicarbonate 26 mmol/L (21-32); Bilirubin Direct 0.2 mg/dL (0-0.2); Bilirubin Total 0.4 mg/dL (0.2-1.0); Glucose Level 117 mg/dL (74-106); Lipase 215 U/L (73-393); Potassium 3.6 mmol/L (3.5-5.1); Protein, Total 8.3 g/dL (6.4-8.2); Sodium Level 140 mmol/L (136-145)
--- NOTE | 2018-12-06 05:42 | EDPHYS ---
Physician Documentation [facility] Name: Cher Ragland Age: 22 yrs Sex: Female : 1995 Arrival Date: 12/06/2018 Time: 01:56 Bed 5 Private MD: ED Physician Champ Sampson HPI: 12/06 02:31 This 22 yrs old Black Female presents to ER via Ambulatory with complaints of Abdominal tw4 Pain - Upper. 02:31 The patient presents with abdominal pain in the right upper quadrant. Onset: The tw4 symptoms/episode began/occurred today. The symptoms do not radiate. Associated signs and symptoms: none. The symptoms are described as dull. Modifying factors: The symptoms are alleviated by nothing, the symptoms are aggravated by nothing. Severity of pain: At its worst the pain was moderate in the emergency department the pain is unchanged. The patient has experienced a previous episode. 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 - Social history:: Smoking status: Patient/guardian denies using tobacco, Patient/guardian denies using alcohol, street drugs. - Ebola Screening: : No symptoms or risks identified at this time. ROS: 02:31 Constitutional: Negative for fever, chills, and weight loss, Eyes: Negative for injury, tw4 pain, redness, and discharge, Cardiovascular: Negative for chest pain, palpitations, and edema, Respiratory: Negative for shortness of breath, cough, wheezing, and pleuritic chest pain, Back: Negative for injury and pain, MS/Extremity: Negative for injury and deformity, Skin: Negative for injury, rash, and discoloration. 02:31 Abdomen/GI: Positive for abdominal pain, abdominal cramps, abdominal distension, Negative for nausea and vomiting, nausea, vomiting, and diarrhea, nausea, vomiting. Exam: 02:31 Constitutional: This is a well developed, well nourished patient who is awake, alert, tw4 and in no acute distress. Head/Face: Normocephalic, atraumatic. Chest/axilla: Normal chest wall appearance and motion. Nontender with no deformity. No lesions are appreciated. Cardiovascular: Regular rate and rhythm with a normal S1 and S2. No gallops, murmurs, or rubs. Normal PMI, no JVD. No pulse deficits. Respiratory: Lungs have equal breath sounds bilaterally, clear to auscultation and percussion. No rales, rhonchi or wheezes noted. No increased work of breathing, no retractions or nasal flaring. Back: No spinal tenderness. No costovertebral tenderness. Full range of motion. MS/ Extremity: Pulses equal, no cyanosis. Neurovascular intact. Full, normal range of motion. Neuro: Awake and alert, GCS 15, oriented to person, place, time, and situation. Cranial nerves II-XII grossly intact. Motor strength 5/5 in all extremities. Sensory grossly intact. Cerebellar exam normal. Normal gait. 02:31 Abdomen/GI: Inspection: abdomen appears normal, Bowel sounds: normal, Palpation: moderate abdominal tenderness, in the right upper quadrant. Vital Signs: 02:16 BP 116 / 74; Pulse 71; Resp 16 S; Temp 98.3(O); Pulse Ox 100% on R/A; Weight 87.09 kg bb (R); Height 5 ft. 2 in. (157.48 cm) (R); Pain 9/10; 02:58 BP 98 / 66; Pulse 79; Resp 16; Pulse Ox 100% on R/A; aa1 03:52 BP 98 / 72; Pulse 72; Resp 16; Pulse Ox 100% on R/A; aa1 04:45 BP 114 / 54; Pulse 78; Resp 16; Pulse Ox 99% on R/A; Pain 5/10; aa1 06:04 BP 110 / 58; Pulse 72; Resp 16; Temp 98.1; Pulse Ox 99% on R/A; Pain 3/10; aa1 02:16 Body Mass Index 35.12 (87.09 kg, 157.48 cm) MDM: 02:14 Patient medically screened. tw4 02:31 Data reviewed: vital signs, nurses notes. tw4 05:42 Differential diagnosis: coronary artery disease, cholecystitis, Cholelithiasis, tw4 gastritis, GI Bleed, pancreatitis, Peptic Ulcer Disease, Perf. Duodenal Ulcer, Perf. Gastric Ulcer. Data interpreted: Pulse oximetry: Interpretation: normal. Counseling: I had a detailed discussion with the patient and/or guardian regarding: the historical points, exam findings, and any diagnostic results supporting the discharge/admit diagnosis. Special discussion: I discussed with the patient/guardian in detail that at this point there is no indication for admission to the hospital. It is understood, however, that if the symptoms persist or worsen the patient needs to return immediately for re-evaluation. 12/06 02:04 Order name: Basic Metabolic Panel [facility] 12/06 02:04 Order name: CBC with Diff [facility] 12/06 02:04 Order name: Creatinine for Radiology [facility] 12/06 02:04 Order name: Hepatic Function [facility] 12/06 02:04 Order name: Lipase [facility] 12/06 02:56 Order name: Urine Dipstick--Ancillary (enter results) [facility] 12/06 02:04 Order name: IV Saline Lock; Complete Time: 02:[address] [facility] 12/06 02:04 Order name: Labs collected and sent; Complete Time: 02:[address] [facility] 12/06 02:04 Order name: Urine Dipstick-Ancillary (obtain specimen); Complete Time: 02:[address] [facility] 12/06 02:56 Order name: Urine --Ancillary (enter results) [facility] 12/06 03:03 Order name: CT Abd/Pelvis - W/Contrast Administered Medications: 03:12 Drug: Zofran 4 mg Route: IVP; Site: right forearm; aa1 06:08 Follow up: Response: No adverse reaction; Nausea is decreased aa1 03:14 Drug: morphine 4 mg Route: IVP; Site: right forearm; aa1 04:15 Follow up: Response: No adverse reaction; Pain is decreased aa1 Disposition: 12/06/18 05:41 Discharged to Home. Impression: Cholelithiasis. - Condition is Stable. - Discharge Instructions: Biliary Colic, Adult, Cholelithiasis. - Prescriptions for Ibuprofen 800 mg Oral Tablet - take 1 tablet by ORAL route every 12 hours As needed take with food; 20 tablet. Zofran 4 mg Oral Tablet - take 1 tablet by ORAL route every 12 hours As needed; 20 tablet. - Family Work Release, Medication Reconciliation Form, Thank You Letter, Antibiotic Education, Prescription Opioid Use form. - Follow up: Private Physician; When: Upon discharge from the Emergency Department; Reason: If symptoms return, Recheck today's complaints, Continuance of care. Follow up: Aleksey Au MD; When: Upon discharge from the Emergency Department; Reason: If symptoms return, Recheck today's complaints, Continuance of care. Follow up: Addy Slater MD; When: Upon discharge from the Emergency Department; Reason: If symptoms return, Recheck today's complaints, Continuance of care. - Problem is new. - Symptoms have improved. Signatures: Dispatcher [employer] EDMS Tiffany Kaba RN RN aa1 Bethany Hagen RN RN bb Champ Sampson MD MD tw4 Corrections: (The following items were deleted from the chart) 05:45 05:41 12/06/2018 05:41 Discharged to Home. Impression: Cholelithiasis. Condition is tw4 Stable. Forms are Medication Reconciliation Form, Thank You Letter, Antibiotic Education, Prescription Opioid Use. Follow up: Private Physician; When: Upon discharge from the Emergency Department; Reason: If symptoms return, Recheck today's complaints, Continuance of care. Problem is new. Symptoms have improved. tw4 06:07 05:45 12/06/2018 05:41 Discharged to Home. Impression: Cholelithiasis. Condition is aa1 Stable. Discharge Instructions: Biliary Colic, Adult, Cholelithiasis. Prescriptions for Ibuprofen 800 mg Oral Tablet - take 1 tablet by ORAL route every 12 hours As needed take with food; 20 tablet, Zofran 4 mg Oral Tablet - take 1 tablet by ORAL route every 12 hours As needed; 20 tablet. and Forms are Medication Reconciliation Form, Thank You Letter, Antibiotic Education, Prescription Opioid Use. Follow up: Private Physician; When: Upon discharge from the Emergency Department; Reason: If symptoms return, Recheck today's complaints, Continuance of care. Follow up: Aleksey Au; When: Upon discharge from the Emergency Department; Reason: If symptoms return, Recheck today's complaints, Continuance of care. Follow up: Addy Slater; When: Upon discharge from the Emergency Department; Reason: If symptoms return, Recheck today's complaints, Continuance of care. Problem is new. Symptoms have improved. tw4
--- NOTE | 2018-12-06 05:42 | ER ---
Nurse's Notes [facility] Name: Cher Ragland Age: 22 yrs Sex: Female : 1995 Arrival Date: 12/06/2018 Time: 01:56 Bed 5 Private MD: Diagnosis: Cholelithiasis Presentation: 12/06 02:13 Presenting complaint: Patient states: she has been having right upper quadrant pain bb since last night the pain is intermittent and goes up to a 9/10 pt is nauseous but denies vomiting or diarrhea. Transition of care: patient was not received from another setting of care. Onset of symptoms was December 05, 2018. Risk Assessment: Do you want to hurt yourself or someone else? Patient reports no desire to harm self or others. Initial Sepsis Screen: Does the patient meet any 2 criteria? No. Patient's initial sepsis screen is negative. Does the patient have a suspected source of infection? No. Patient's initial sepsis screen is negative. Care prior to arrival: None. 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 - Social history:: Smoking status: Patient/guardian denies using tobacco, Patient/guardian denies using alcohol, street drugs. - Ebola Screening: : No symptoms or risks identified at this time. Screenin:20 Abuse screen: Denies threats or abuse. Denies injuries from another. Nutritional aa1 screening: No deficits noted. Tuberculosis screening: No symptoms or risk factors identified. Fall Risk None identified. Assessment: 02:20 General: Appears in no apparent distress. comfortable, Behavior is calm, cooperative, aa1 appropriate for age. Pain: Complains of pain in right upper quadrant Pain began 2 hours ago. Is continuous. Neuro: Level of Consciousness is awake, alert, obeys commands, Oriented to person, place, time, situation, Moves all extremities. Gait is steady, Speech is normal. Cardiovascular: Heart tones S1 S2 present Rhythm is regular. Respiratory: Airway is patent Respiratory effort is even, unlabored, Respiratory pattern is regular, symmetrical. GI: Abdomen is non-distended, Bowel sounds present X 4 quads. Abd is soft X 4 quads Reports upper abdominal pain, nausea, Patient currently denies constipation, diarrhea, vomiting. : No signs and/or symptoms were reported regarding the genitourinary system. EENT: No signs and/or symptoms were reported regarding the EENT system. Derm: Skin is intact, is healthy with good turgor, Skin is pink, warm \T\ dry. Musculoskeletal: Circulation, motion, and sensation intact. Capillary refill < 3 seconds. 03:30 Reassessment: Patient appears in no apparent distress at this time. Patient and/or aa1 family updated on plan of care and expected duration. Pain level reassessed. Patient is alert, oriented x 3, equal unlabored respirations, skin warm/dry/pink. Awaiting CT scan. 04:45 Reassessment: Patient appears in no apparent distress at this time. Patient and/or aa1 family updated on plan of care and expected duration. Pain level reassessed. Patient is alert, oriented x 3, equal unlabored respirations, skin warm/dry/pink. Awaiting CT results. 06:04 Reassessment: Patient appears in no apparent distress at this time. Patient is alert, aa1 oriented x 3, equal unlabored respirations, skin warm/dry/pink. Discussed d/c \T\ f/u instructions with pt \T\ spouse; denies questions or concerns at this time Patient states feeling better. Vital Signs: 02:16 BP 116 / 74; Pulse 71; Resp 16 S; Temp 98.3(O); Pulse Ox 100% on R/A; Weight 87.09 kg bb (R); Height 5 ft. 2 in. (157.48 cm) (R); Pain 9/10; 02:58 BP 98 / 66; Pulse 79; Resp 16; Pulse Ox 100% on R/A; aa1 03:52 BP 98 / 72; Pulse 72; Resp 16; Pulse Ox 100% on R/A; aa1 04:45 BP 114 / 54; Pulse 78; Resp 16; Pulse Ox 99% on R/A; Pain 5/10; aa1 06:04 BP 110 / 58; Pulse 72; Resp 16; Temp 98.1; Pulse Ox 99% on R/A; Pain 3/10; aa1 02:16 Body Mass Index 35.12 (87.09 kg, 157.48 cm) ED Course: 01:56 Patient arrived in ED. am2 02:08 Tiffany Kaba, RN is Primary Nurse. aa1 02:14 Champ Sampson MD is Attending Physician. tw4 02:15 Triage completed. bb 02:16 Arm band placed on Patient placed in an exam room, on a stretcher, on pulse oximetry. bb Family accompanied patient. 02:20 Patient has correct armband on for positive identification. Placed in gown. Bed in low aa1 position. Call light in reach. Pulse ox on. NIBP on. Warm blanket given. 02:40 Urine collected: clean catch specimen, denisa colored. Missed attempt(s): 20 gauge in aa1 right forearm. Bleeding controlled, band aid applied, catheter tip intact. 02:43 Initial lab(s) drawn, by me, sent to lab. Inserted saline lock: 22 gauge in right aa1 forearm, using aseptic technique. Blood collected. 04:34 CT Abd/Pelvis - W/Contrast In Process Unspecified. EDMS 05:45 Aleksey Au MD is Referral Physician. tw4 05:45 Addy Slater MD is Referral Physician. tw4 06:04 No provider procedures requiring assistance completed. IV discontinued, intact, aa1 bleeding controlled, No redness/swelling at site. Pressure dressing applied. Administered Medications: 03:12 Drug: Zofran 4 mg Route: IVP; Site: right forearm; aa1 06:08 Follow up: Response: No adverse reaction; Nausea is decreased aa1 03:14 Drug: morphine 4 mg Route: IVP; Site: right forearm; aa1 04:15 Follow up: Response: No adverse reaction; Pain is decreased aa1 Outcome: 05:41 Discharge ordered by . tw4 06:04 Discharged to home ambulatory, with significant other. aa1 06:04 Condition: good 06:04 Discharge instructions given to patient, significant other, Instructed on discharge instructions, follow up and referral plans. medication usage, Demonstrated understanding of instructions, follow-up care, medications, Prescriptions given X 2. 06:07 Patient left the ED. aa1 Signatures: Dispatcher [employer] EDTiffany Covington RN RN aa1 Bethany Hagen RN RN bb Moreno, Amanda am2 Champ Sampson MD MD tw4
--- NOTE | 2018-12-07 09:38 | RAD REPORT ---
EXAM DESCRIPTION: CT ABDOMEN AND PELVIS WITH CONTRAST. 12/06/2018 CLINICAL HISTORY: Right upper quadrant abdominal pain. COMPARISON: CT abdomen and pelvis with contrast 09/25/2018. TECHNIQUE: Axial [address] imaging of the abdomen and pelvis performed utilizing intravenous contrast. Arterial and venous phase imaging performed. Reformatted coronal and sagittal images reviewed. A dose reduction technique was utilized with automated exposure control according to patient size. FINDINGS: LOWER THORAX: Lung bases are clear. Heart is normal in size. No pericardial fluid. ABDOMEN: LIVER/GALLBLADDER: Mild decreased liver attenuation is due to cirrhosis. No mass or biliary dilatati on. Gallbladder contains a very small stone within the dependent fundus. No cholecystitis evident. SPLEEN/PANCREAS: Normal spleen. Normal pancreas. KIDNEYS/ADRENAL GLANDS: Normal adrenal glands and kidneys. Normal bilateral renal excretion of contr ast RETROPERITONEAL VESSELS/NODES: Normal caliber abdominal aorta. Minimal mesentery vasculature. Normal caliber inferior vena cava. No adenopathy. BOWEL: Normal stomach. Small bowel loops appear normal. Normal appendix along the right pelvic sidew all. Normal colon. MESENTERY/PERITONEUM: No adenopathy. No ascites or free air. PELVIS: BLADDER: No filling defect. No bladder wall thickening. GENITAL ORGANS: Normal uterus and ovaries. PERITONEUM: No pelvic free fluid or adenopathy. BONES AND SOFT TISSUES: Normal lumbar alignment. Unremarkable bony pelvis and hips. IMPRESSION: 1. No acute finding within the abdomen or pelvis. 2. Cholelithiasis without cholecystitis. 3. Mild fatty liver. Electronically signed by: Noemi Vences DO 12/06/2018 4:47 AM CDT Due to temporary technical issues with the PACS/Fluency reporting system, reports are being signed by the in house radiologist as a courtesy to ensure prompt reporting. The interpreting radiologist is f ully responsible for the content of the report.
== END 2018-12-06 06:07 | disposition home or self-care (01) ==
LOC: ER 01:54
DX: K80.20 Calculus of gallbladder without cholecystitis without obstruction (principal)
CPT/HCPCS: 36415; 74177; 80048; 80076; 81003; 81025; 83690; 85025; 96374; 96375; 99284; J2405; Q9967

== ENCOUNTER 2019-03-20 03:31 | Emergency (ER) | payer SELFPAY ==
--- OUTSIDE RECORDS SUMMARY | 2019-03-20 03:33 | XMS REPORT | Clinical Summary ---
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 Ii 5fr 65cm Selc Braidd Torque [place] - [id number] Surgical N/A: N/A [facility] PERIPHERAL [id number] / Implanted: 06/25/2016 (Quantity not on file) Implants; INTERVENTION / Expanders; VASCULAR CARMELLA Extenders; Surgical Wires Catheter Interlocker [place] 6fr 75cm [id number] 0.035in H-Pres - [id number] Surgical N/A : N/A JERRY [id number] / Implanted: 06/25/2016 (Quantity not on file) Implants; SCIENTIFIC ANDREINA / Expanders; Extenders; Surgical Wires Cath Interlocker 7fr Ball 80cm X 2.0 12mm Advance 35lp - [id number] Surgical N/A: N/A [employer] PERIPHERAL [id number] / Implanted: 06/25/2016 (Quantity not on file) Implants; INTERVENTION / Expanders; Extenders; Surgical Wires Results Not on fileafter 03/19/2018 Advance Directives Patient has advance care planning documents on file. For more information, please contact:Dominick Beckham[address] [place] [address]
--- OUTSIDE RECORDS SUMMARY | 2019-03-20 03:33 | XMS REPORT ---
:1995 Author Organization [facility] Address [address] [place] [address] Dr. Luevano [address] [place] [id number] Care Team Providers Name Role Phone Unavailable Unavailable Unavailable Problems This patient has no known problems. Allergies, Adverse Reactions, Alerts This patient has no known allergies or adverse reactions. Medications This patient has no known medications.
[2019-03-20 04:19] LABS: Absolute Lymphocytes (CBC) 1.8 K/uL (0.7-4.9); Basophils % 0.2 % (0-1.3); Eosinophils % 0.5 % (0-4.4); Hematocrit 35.8 % (36.0-45.0); Lymphocytes % 14.1 % (15.3-44.8); MPV 7.8 fL (7.6-11.3); Monocytes % 8.4 % (3.3-12.3)
[2019-03-20 04:34] LABS: ALT/SGPT 28 U/L (12-78); AST/SGOT 13 U/L (15-37); Albumin 3.7 g/dL (3.4-5.0); Alkaline Phosphatase 78 U/L (45-117); BUN Blood Urea Nitrogen 15 mg/dL (7-18); Bicarbonate 28 mmol/L (21-32); Bilirubin Total 0.2 mg/dL (0.2-1.0); Glucose Level 103 mg/dL (74-106); Potassium 3.8 mmol/L (3.5-5.1); Protein, Total 8.3 g/dL (6.4-8.2); Sodium Level 141 mmol/L (136-145)
[2019-03-20] MEDS ORDERED: KETOROLAC 30 MG/ML INJ ONE (04:53)
[2019-03-20 05:10] LABS: Urine Blood NEGATIVE (NEG); Urine Glucose NEGATIVE (NEG); Urine Protein NEGATIVE (NEG)
--- NOTE | 2019-03-20 07:24 | RAD REPORT ---
EXAM DESCRIPTION: US - Abdomen Exam Limited - 03/20/2019 7:11 am CLINICAL HISTORY: Abdominal pain CT study December 2018 COMPARISON: None. FINDINGS: Several small sub centimeter mobile gallstones are identified. There is no wall thickening or pericholecystic fluid. No common duct stone or biliary tree dilatation identified. IMPRESSION: Cholelithiasis without evidence for cholecystitis. No duct stone or biliary tree abnormality.
--- NOTE | 2019-03-20 09:22 | ER ---
Nurse's Notes [facility] Name: Cher Ragland Age: 23 yrs Sex: Female : 1995 Arrival Date: 03/20/2019 Time: 03:32 Bed 20 Private MD: Diagnosis: Pain localized to upper abdomen;Cholelithiasis Presentation: 03/20 03:45 Presenting complaint: Patient states: she is having right upper quadrant pain sudden bb onset last night with vomiting x 3, pt was dx with gallstones earlier this year. Transition of care: patient was not received from another setting of care. Onset of symptoms was March 19, 2019. Risk Assessment: Do you want to hurt yourself or someone else? Patient reports no desire to harm self or others. Initial Sepsis Screen: Does the patient meet any 2 criteria? No. Patient's initial sepsis screen is negative. Does the patient have a suspected source of infection? No. Patient's initial sepsis screen is negative. Care prior to arrival: None. 03:45 Method Of Arrival: Ambulatory bb 03:45 Acuity: MANAV 3 bb Triage Assessment: 07:00 General: Appears in no apparent distress. comfortable, obese, Behavior is cooperative, bp appropriate for age, anxious. Pain: Complains of pain in right upper quadrant. EENT: No deficits noted. Neuro: No deficits noted. Cardiovascular: No deficits noted. Respiratory: Airway is patent Respiratory effort is even, unlabored, Respiratory pattern is regular, symmetrical. GI: Reports upper abdominal pain, nausea. : No signs and/or symptoms were reported regarding the genitourinary system. Derm: No deficits noted. Musculoskeletal: No deficits noted. 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 - Social history:: Smoking status: Patient/guardian denies using tobacco. - Ebola Screening: : No symptoms or risks identified at this time. Screenin:10 Abuse screen: Denies threats or abuse. Denies injuries from another. Nutritional lp1 screening: No deficits noted. Tuberculosis screening: No symptoms or risk factors identified. Fall Risk None identified. Assessment: 03:50 General: Appears uncomfortable, Behavior is appropriate for age. Pain: Complains of lp1 pain in epigastric area and right upper quadrant. GI: Pt is actively vomiting bile. 03:50 Neuro: Level of Consciousness is awake, alert, obeys commands. Cardiovascular: lp1 Patient's skin is warm and dry. Respiratory: Respiratory effort is even. : No signs and/or symptoms were reported regarding the genitourinary system. EENT: No signs and/or symptoms were reported regarding the EENT system. Derm: Skin is intact, Skin is dry, Skin is normal. Musculoskeletal: No deficits noted. 03:55 General: Appears in no apparent distress. uncomfortable, Behavior is calm, cooperative, cc3 appropriate for age. Pain: Complains of pain in right upper quadrant and epigastric area. Neuro: Level of Consciousness is awake, alert, obeys commands, Oriented to person, place, time, situation, Appropriate for age. Cardiovascular: Denies chest pain, Capillary refill < 3 seconds Patient's skin is warm and dry. Respiratory: Airway is patent Respiratory effort is even, unlabored, Respiratory pattern is regular, symmetrical. GI: Abdomen is round. : No signs and/or symptoms were reported regarding the genitourinary system. EENT: No signs and/or symptoms were reported regarding the EENT system. Derm: Skin is intact, is healthy with good turgor, Skin is normal. Musculoskeletal: Circulation, motion, and sensation intact. Range of motion: intact in all extremities. 04:30 Reassessment: Patient appears in no apparent distress at this time. Patient and/or cc3 family updated on plan of care and expected duration. Pain level reassessed. Patient is alert, oriented x 3, equal unlabored respirations, skin warm/dry/pink. 05:18 Reassessment: Patient appears in no apparent distress at this time. Patient and/or cc3 family updated on plan of care and expected duration. Pain level reassessed. Patient is alert, oriented x 3, equal unlabored respirations, skin warm/dry/pink. 06:12 Reassessment: Patient appears in no apparent distress at this time. Patient and/or cc3 family updated on plan of care and expected duration. Pain level reassessed. Patient is alert, oriented x 3, equal unlabored respirations, skin warm/dry/pink. 06:50 Reassessment: Ultrasound done bedside by the process technician, awaiting result. cc3 07:00 Reassessment: RECD REPORT FROM SUZANNE FERRIS. 23YO BF P/W RUQ PAIN, KNOWN H/O GALLSTONES. bp ALL CURRENT ORDERS COMPLETED, U/S RESULTS PENDING. 09:00 Reassessment: ALL CURRENT ORDERS COMPLETED, DISPO PENDING. bp 09:32 Reassessment: PT D/C HOME AMBULATORY WITH FAMILY, DX WITH CHOLELITHIASIS. bp Vital Signs: 03:51 BP 108 / 52; Pulse 84; Resp 16 S; Temp 97.6(O); Pulse Ox 98% on R/A; Weight 81.65 kg bb (R); Height 5 ft. 2 in. (157.48 cm) (R); Pain 6/10; 04:30 BP 103 / 64; Pulse 89; Resp 17 S; Pulse Ox 98% on R/A; cc3 05:15 BP 97 / 57; Pulse 89; Resp 16 S; Pulse Ox 98% on R/A; cc3 06:12 BP 107 / 70; Pulse 80; Resp 17 S; Pulse Ox 97% on R/A; cc3 06:31 BP 119 / 79; Pulse 80; Resp 17 S; Pulse Ox 100% on R/A; cc3 07:00 BP 118 / 98; Pulse 100; Resp 16; Pulse Ox 100% ; bp 08:13 BP 97 / 59; Pulse 100; Resp 16; Temp 97.6; Pulse Ox 100% ; bp 09:32 BP 116 / 70; Pulse 100; Resp 18; Temp 98; Pulse Ox 100% ; bp 03:51 Body Mass Index 32.92 (81.65 kg, 157.48 cm) bb ED Course: 03:32 Patient arrived in ED. ds1 03:35 Junior Lemon MD is Attending Physician. ps1 03:43 Suzanne Fuller is Primary Nurse. cc3 03:47 Triage completed. bb 03:51 Arm band placed on Patient placed in an exam room, on a stretcher, on pulse oximetry. bb Family accompanied patient. 04:00 Missed attempt(s): 20 gauge in right antecubital area. lp1 04:10 Patient has correct armband on for positive identification. Placed in gown. lp1 04:10 Inserted saline lock: 20 gauge in left antecubital area, using aseptic technique. Blood cc3 collected. 07:00 Report given to JOSY García. cc3 07:04 Abdomen Limited US In Process Unspecified. EDMS 07:09 Primary Nurse role handed off by Suzanne Fuller bp 07:09 Ricky Bruno, RN is Primary Nurse. bp 09:13 Addy Slater MD is Referral Physician. gs 09:33 No provider procedures requiring assistance completed. IV discontinued, intact, bp bleeding controlled, No redness/swelling at site. Pressure dressing applied. Administered Medications: 04:35 Drug: TORadol - Ketorolac 15 mg Route: IVP; Site: left antecubital; cc3 05:18 Follow up: Response: No adverse reaction; Pain is decreased cc3 04:38 CANCELLED (Other Intervention Used): TORadol 30 mg IM once cc3 Outcome: 09:20 Discharge ordered by . gs 09:33 Discharged to home ambulatory, with family. bp 09:33 Condition: stable 09:33 Discharge instructions given to patient, Instructed on discharge instructions, follow up and referral plans. medication usage, Demonstrated understanding of instructions, follow-up care, medications, Prescriptions given X 1. 09:34 Patient left the ED. bp Signatures: Dispatcher [employer] [facility] Yanci Diaz ds1 Bethany Hagen RN RN Carole Arango RN RN lp1 Oleg Tolliver MD MD gs Peltier, Brian, RN RN bp Singer, Phillip, MD MD ps1 Cordel, Charlene cc3 Corrections: (The following items were deleted from the chart) 04:10 03:50 General: Appears uncomfortable, lp1 lp1
--- NOTE | 2019-03-20 09:22 | EDPHYS ---
Physician Documentation [facility] Name: Cher Ragland Age: 23 yrs Sex: Female : 1995 Arrival Date: 03/20/2019 Time: 03:32 Bed 20 Private MD: ED Physician Junior Lemon HPI: 03/20 05:26 This 23 yrs old Black Female presents to ER via Ambulatory with complaints of ps1 Gallbladder Pain. 05:26 patient has a history of cholelithiasis. Ate qatari food last night and now presenting ps1 afebrile with RUQ abdominal pain. Pain does not radiate. Pain rated as moderate, worse with eating. No N,V. . 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 - Social history:: Smoking status: Patient/guardian denies using tobacco. - Ebola Screening: : No symptoms or risks identified at this time. ROS: 05:26 Constitutional: Negative for fever, chills, and weight loss, Eyes: Negative for injury, ps1 pain, redness, and discharge, Cardiovascular: Negative for chest pain, palpitations, and edema, Respiratory: Negative for shortness of breath, cough, wheezing, and pleuritic chest pain, MS/Extremity: Negative for injury and deformity, Skin: Negative for injury, rash, and discoloration, Neuro: Negative for headache, weakness, numbness, tingling, and seizure. 05:26 Abdomen/GI: Positive for abdominal pain. Exam: 05:26 Constitutional: This is a well developed, well nourished patient who is awake, alert, ps1 and in no acute distress. Head/Face: Normocephalic, atraumatic. Eyes: Pupils equal round and reactive to light, extra-ocular motions intact. Lids and lashes normal. Conjunctiva and sclera are non-icteric and not injected. Chest/axilla: Normal chest wall appearance and motion. Nontender with no deformity. No lesions are appreciated. Cardiovascular: Regular rate and rhythm. No gallops, murmurs, or rubs. Normal PMI, no JVD. No pulse deficits. Respiratory: Lungs have equal breath sounds bilaterally, clear to auscultation and percussion. No rales, rhonchi or wheezes noted. No increased work of breathing, no retractions or nasal flaring. Skin: Warm, dry with normal turgor. Normal color with no rashes, no lesions, and no evidence of cellulitis. MS/ Extremity: Pulses equal, no cyanosis. Neurovascular intact. Full, normal range of motion. 05:26 Abdomen/GI: Inspection: abdomen appears normal, Bowel sounds: normal, Palpation: mild abdominal tenderness, in the right upper quadrant, Rectal exam: Vital Signs: 03:51 BP 108 / 52; Pulse 84; Resp 16 S; Temp 97.6(O); Pulse Ox 98% on R/A; Weight 81.65 kg bb (R); Height 5 ft. 2 in. (157.48 cm) (R); Pain 6/10; 04:30 BP 103 / 64; Pulse 89; Resp 17 S; Pulse Ox 98% on R/A; cc3 05:15 BP 97 / 57; Pulse 89; Resp 16 S; Pulse Ox 98% on R/A; cc3 06:12 BP 107 / 70; Pulse 80; Resp 17 S; Pulse Ox 97% on R/A; cc3 06:31 BP 119 / 79; Pulse 80; Resp 17 S; Pulse Ox 100% on R/A; cc3 07:00 BP 118 / 98; Pulse 100; Resp 16; Pulse Ox 100% ; bp 08:13 BP 97 / 59; Pulse 100; Resp 16; Temp 97.6; Pulse Ox 100% ; bp 09:32 BP 116 / 70; Pulse 100; Resp 18; Temp 98; Pulse Ox 100% ; bp 03:51 Body Mass Index 32.92 (81.65 kg, 157.48 cm) bb MDM: 03:52 Patient medically screened. ps1 09:05 Data reviewed: vital signs, nurses notes, lab test result(s), radiologic studies. gs Counseling: I had a detailed discussion with the patient and/or guardian regarding: the historical points, exam findings, and any diagnostic results supporting the discharge/admit diagnosis, lab results, radiology results, the need for outpatient follow up. Response to treatment: the patient's symptoms have markedly improved after treatment, the patient's condition has returned to base line, and as a result, I will discharge patient. ED course: pt seen and examined, studies reviewed non surgical abdomen on exam plan discharge. 03/20 03:44 Order name: CBC with Diff ps1 03/20 03:44 Order name: CMP; Complete Time: 05:26 ps1 03/20 03:44 Order name: Abdomen Limited US; Complete Time: 09:01 ps1 03/20 03:45 Order name: CBC with Automated Diff; Complete Time: 05:26 EDMS 03/20 04:54 Order name: Urine Dipstick--Ancillary (enter results); Complete Time: 05:26 ar5 03/20 04:54 Order name: Urine --Ancillary (enter results); Complete Time: 05:26 ar5 03/20 03:44 Order name: Urine Dipstick-Ancillary (obtain specimen); Complete Time: 04:18 ps1 03/20 03:44 Order name: NPO; Complete Time: 04:11 ps1 Administered Medications: 04:35 Drug: TORadol - Ketorolac 15 mg Route: IVP; Site: left antecubital; cc3 05:18 Follow up: Response: No adverse reaction; Pain is decreased cc3 04:38 CANCELLED (Other Intervention Used): TORadol 30 mg IM once cc3 Disposition: 03/20/19 09:20 Discharged to Home. Impression: Pain localized to upper abdomen, Cholelithiasis. - Condition is Stable. - Discharge Instructions: Abdominal Pain, Adult. - Prescriptions for Pepcid 20 mg Oral Tablet - take 1 tablet by ORAL route every 12 hours for 10 days; 20 tablet. - Medication Reconciliation Form, Thank You Letter, Antibiotic Education, Prescription Opioid Use, Family Work Release form. - Follow up: Addy Slater MD; When: 2 - 3 days; Reason: Re-evaluation by your physician. Signatures: Dispatcher [employer] Bethany Leonardo, JOSY RN Oleg Barnard MD MD gs Peltier, Brian, RN RN Junior Best MD MD ps1 Cordel, Charlene cc3 Corrections: (The following items were deleted from the chart) 04:38 04:36 TORadol 30 mg IM once ordered. cc3 cc3 04:38 04:38 TORadol 30 mg IM once ordered. cc3 cc3 09:34 09:20 03/20/2019 09:20 Discharged to Home. Impression: Pain localized to upper abdomen; bp Cholelithiasis. Condition is Stable. Forms are Medication Reconciliation Form, Thank You Letter, Antibiotic Education, Prescription Opioid Use. Follow up: Addy Slater; When: 2 - 3 days; Reason: Re-evaluation by your physician. gs
== END 2019-03-20 09:34 | disposition home or self-care (01) ==
LOC: ER 03:31
DX: K80.20 Calculus of gallbladder without cholecystitis without obstruction (principal)
CPT/HCPCS: 36415; 76705; 80053; 81003; 81025; 85025; 96374; 99284

== ENCOUNTER 2019-08-16 21:14 | Emergency (ER) | payer SELFPAY ==
--- OUTSIDE RECORDS SUMMARY | 2019-08-16 21:17 | XMS REPORT ---
:1995 [facility] Address [address] [place] [address] Dr. Luevano [address] [place] [id number] Care Team Providers Name Role Phone Unavailable Unavailable Unavailable Problems This patient has no known problems. Allergies, Adverse Reactions, Alerts This patient has no known allergies or adverse reactions. Medications This patient has no known medications.
--- OUTSIDE RECORDS SUMMARY | 2019-08-16 21:17 | XMS REPORT | Summary of Care ---
:1995 Author Organization [facility] - Health Address [address] [place] [address] Care Team Providers Name Role Phone Luzmaria Alcantar MD Insurance Hmo Luzmaria Alcantar MD Primary Care Provider Encounter Details Date Type Department Care Team Description 04/14/2019 Orders Only [facility] Doctor Unassigned, No [address] [facility] [place] [address] [address] [place] [address] Allergies No Known Allergiesdocumented as of this encounter (statuses as of 04/14/2019) Medications Medication Sig Dispensed Refills Start Date End Date Status acetaminophen (TYLENOL) Take 650 mg by 0 Active 325 mg tablet mouth every 6 (six) hours as needed. foLIC acid 1 mg tablet Take 1 tablet by 30 tablet 2 06/12/2018 Active mouth daily. ferrous sulfate 325 mg Take 1 tablet by 60 tablet 2 08/25/2018 Active (65 mg iron) tablet mouth 2 (two) times daily. escitalopram oxalate Take 1 tablet by 30 tablet 2 12/01/2018 Active (LEXAPRO) 10 mg tablet mouth daily. documented as of this encounter (statuses as of 04/14/2019) Active Problems Problem Noted Date Post term over 40 weeks 08/23/2018 Obesity (BMI 30-39.9) 04/22/2018 Alpha thalassemia 05/10/2015 documented as of this encounter (statuses as of 04/14/2019) Resolved Problems Problem Noted Date Resolved Date Anemia of mother in , antepartum 08/25/2018 10/04/2018 Liveborn , of ngo , born in hospital by 08/25/201810/04 delivery 40 weeks gestation of 08/21/2018 08/23/2018 34 weeks gestation of 07/12/2018 08/23/2018 Encounter for suspected premature rupture of amniotic 07/12/2018 08/23/2018 membranes, with rupture of membranes not found BV (bacterial vaginosis) 07/12/2018 08/23/2018 28 weeks gestation of 06/01/2018 08/23/2018 Pelvic pressure in , antepartum, second trimester 06/01/20182017 23 weeks gestation of 04/25/2018 08/23/2018 Vaginal spotting 04/25/2018 08/23/2018 Placenta previa antepartum in second trimester 03/29/2018 08/23/2018 Abnormal maternal glucose tolerance, antepartum 12/30/2017 08/23/2018 Alpha 0-thalassemia 05/20/2015 08/23/2018 Urinary tract infection with hematuria, site unspecified 05/20/20152017 Status post dilation and curettage 05/15/2015 07/25/2015 Missed 05/13/2015 08/23/2018 Anemia of mother in , antepartum, first trimester 05/13/20152017 Pain 05/10/2015 05/15/2015 Threatened in first trimester 05/10/2015 05/15/2015 documented as of this encounter (statuses as of 04/14/2019) Immunizations Name Administration Dates Next Due Influenza Virus Vaccine Quad .5 mL IM 6+ MO 06/12/2018 06/12/2019 Tdap 05/29/2018 documented as of this encounter Social History Tobacco Use Types Packs/Day Years Used Date Never Smoker Smokeless Tobacco: Never Used Alcohol Use Drinks/Week oz/Week Comments No 0 Standard drinks or equivalent 0.0 Sex Assigned at Date Recorded Not on file Job Start Date Occupation Industry Not on file Not on file Not on file Travel History Travel Start Travel End No recent travel history available. documented as of this encounter Last Filed Vital Signs Not on filedocumented in this encounter Plan of Treatment Date Type Specialty Care Team Description 04/23/2019 Office Visit Obstetrics & Gynecology Luzmaria Alcantar MD [address] [place] [address] [place] [address] [phone] Health Maintenance Due Date Last Done Comments PNEUMOCOCCAL 0-64 YEARS COMBINED SERIES (1 of 3 - 12/12/1999 PCV13) HPV VACCINES (1 - Female 3-dose series) 2008 INFLUENZA VACCINE 05/06/2019 06/12/2018 PAP SMEAR 12/29/2020 12/29/2017 DTaP,Tdap,and Td Vaccines (2 - Td) 05/29/2028 05/29/2018 documented as of this encounter Procedures Procedure Name Priority Date/Time Associated Diagnosis Comments CONSENT/REFUSAL FOR Routine 04/14/2019 1:20 PM CDT DIAGNOSIS AND TREATMENT documented in this encounter Results Not on filedocumented in this encounter Insurance Payer Benefit Plan Subscriber ID Effective Phone Address Type / Group Dates [employer] [place] [employer] xxxxxxxxx 2018-Kimberlee [phone] Medicaid WOMEN WOMEN nt 00 [id number] [place] [address] documented as of this encounter Advance Directives Name Relationship Healthcare Agent Communication Relationship Marie Ragland Mother Primary healthcare agent [email or web address]
--- OUTSIDE RECORDS SUMMARY | 2019-08-16 21:17 | XMS REPORT | Summary of Care ---
:1995 Author Organization [facility] Address [address] [place] [id number] Care Team Providers Name Role Phone Luzmaria Alcantar MD Insurance Hmo Luzmaria Alcantar MD Primary Care Provider Reason for Referral MRI/CAT Scan (Routine) Status Reason Specialty Diagnoses / Referred By Referred To Procedures Contact Contact New Request Diagnostic Diagnoses Right upper quadrant abdominal pain Nishant Davis Radiology Procedures CT ABDOMEN PELVIS W CONTRAST III, PA [address] [place] [address] MRI/CAT Scan (Routine) Status Reason Specialty Diagnoses / Referred By Referred To Procedures Contact Contact New Request Diagnostic Diagnoses Right upper quadrant abdominal pain Nishant Davis Radiology Procedures CT ABDOMEN PELVIS W CONTRAST III, PA [address] [place] [address] Reason for Visit Reason Comments GALLBLADDER Auth/Cert Status Reason Specialty Diagnoses / Referred By Referred To Procedures Contact Contact Emergency Medicine [facility] [address] [place] [address] Encounter Details Date Type Department Care Team Description 04/14/2019 Emergency [facility]-Emergency Nishant Davis III, Right upper quadrant Department PA abdominal pain [address] [place] THIERNO BRYANT (Primary Dx) [place] [address] [place] [phone] Allergies No Known Allergiesdocumented as of this [...] mother in , antepartum 08/25/2018 10/04/2018 Liveborn infant, of ngo , born in hospital by [...] of this encounter Last Filed Vital Signs Vital Sign Reading Time Taken Comments Blood Pressure 125/72 04/14/2019 4:00 PM CDT Pulse 98 04/14/2019 4:00 PM CDT Temperature 37 C (98.6 F) 04/14/2019 1:37 PM CDT Respiratory Rate 18 04/14/2019 4:00 PM CDT Oxygen Saturation 99% 04/14/2019 4:00 PM CDT Inhaled Oxygen Concentration - - Weight 83.9 kg (185 lb) 04/14/2019 1:37 PM CDT Height 157.5 cm (5' 2") 04/14/2019 1:37 PM CDT Body Mass Index 33.84 04/14/2019 1:37 PM CDT documented in this encounter Discharge Instructions InstructionsMoNishant ventura III, PA - 04/14/2019 @@@@@@@@@@@@@@@@@@@@@@@@@@@@@@@@@@@@@@@@@@@@@@@@@@@@@ [facility] RETURN TO WORK / SCHOOL EXCUSE Cher Ragland WAS SEEN IN THE ER AND DISCHARGED 04/14/2019 TODAY, 4:41 PM & May return to Work / School / Incarceration on 04/15/19 with No limitations unless indicated below. ___The following limitations apply until pt is seen by Physician and cleared to return to normal activity. ___ Light duty ___ No Sports ___ No work ___ Do not return until fever free for 24 hours. ___ No school Ed Ryan [facility] [address] [place] [address] [place] [address] If you are unprepared to return to work tomorrow due to pain please give this note to your employer and make a follow up appointment with your MD for further evaluation and limitations. ### The patient may have been given Narcotic pain medications during their stay in the ED that may show up on a Drug Screen. The hospital discharge paper work will identify these medications. @@@@@@@@@@@@@@@@@@@@@@@@@@@@@@@@@@@@@@@@@@@@@@@@@@@@@ Thank you for trusting us with your care. The emergency room is the first stop in the medical management of your complaint . Our primary pupose is to identify life threatening emergancies and to rapidly address those issues. We are releasing you today after evaluation for emergency or life threatening problems related to your complaint. At this time we are comfortable that your condition is stable enough to go home, take oral medications and follow up for further care. If you can't afford a doctor OR MEDICATIONS consider [facility], [address] [place] [address]; [phone] Medications [employer] WILL SHOW YOU WHERE YOU CAN GET YOUR MEDICATIONS CHEAPEST. 1. Call your doctor and let them know you were seen for ICD-10-CM ICD-9-CM 1. Right upper quadrant abdominal pain R10.11 789.01 2. Schedule a follow up within 3 days of your ER visit. 3. Take your prescriptions to the pharmacy and get them filled today. 4. Take the medications as prescribed and until completed. 5. You have been referred for further care 6. You may need additional tests Your doctors will help you figure out what you need and how to get them done. 7. Please read all paperwork provided to you. Additional instructions See Attached We did not find any gallstones in her gallbladder however I'm giving U information on gallstones andthe diet to follow AttachmentsThe following attachments cannot be sent through Care Everywhere.Gallstones, Discharge Instructions (Guamanian)documented in this encounter Plan of Treatment Date Type Specialty Care Team Description 04/23/2019 Office Visit Obstetrics & Gynecology Luzmaria Alcantar MD [address] [place] [address] [place] [address] [phone] Name Type Priority Associated Diagnoses Date/Time CT ABDOMEN PELVIS W IMAGING Routine Right upper quadrant 04/14/2019 3:35 PM CONTRAST abdominal pain CDT Health Maintenance Due Date Last Done Comments PNEUMOCOCCAL 0-64 YEARS COMBINED SERIES (1 of 3 - 12/12/1999 PCV13) HPV VACCINES (1 - Female 3-dose series) 2008 INFLUENZA VACCINE 05/06/2019 06/12/2018 PAP SMEAR 12/29/2020 12/29/2017 DTaP,Tdap,and Td Vaccines (2 - Td) 05/29/2028 05/29/2018 documented as of this encounter Procedures Procedure Name Priority Date/Time Associated Diagnosis Comments CT ABDOMEN PELVIS W Routine 04/14/2019 3:35 PM Right upper quadrant CONTRAST CDT abdominal pain Procedure Note - [facility], Radiant Results Inft User - 04/14/2019 4:27 PM CDT * * * * * * * * ORIGINAL REPORT * * * * * * * * EXAM: CT ABDOMEN AND PELVIS WITH CONTRAST HISTORY: Abd pain, acute, generalized COMPARISON: None. TECHNIQUE AND FINDINGS: Contiguous axial imaging from the level of the lung bases through the pubic symphysis was performed after the uncomplicated administration of 120 cc of intravenous Omnipaque contrast. Coronal and sagittal reconstructions were obtained. Auto mA and/or iterative reconstruction were used to reduce radiation dose. FINDINGS: LOWER THORAX: The lungs bases are clear. No cardiomegaly. LIVER: The liver is enlarged measuring 21 cm in length. Normal contour. No focal hepatic lesions. GALLBLADDER AND BILIARY TREE: No gallbladder wall thickening. No biliary ductal dilation. SPLEEN: No splenomegaly. PANCREAS: No ductal dilation or masses. ADRENAL GLANDS: No adrenal nodules. KIDNEYS: No hydronephrosis, stones, or masses. PERITONEUM AND RETROPERITONEUM: No free air or fluid. LYMPH NODES: No lymphadenopathy. GI TRACT: No dilation or wall thickening. Normal appendix. PELVIS/BLADDER: The bladder is partially distended with circumferential bladder wall thickening. The uterus is unremarkable. Multiple small cysts are seen in both ovaries. VESSELS: Bilateral prominent pelvic vessels are seen. BONES AND SOFT TISSUES: No suspicious lytic or sclerotic bony lesions. IMPRESSION 1. Circumferential bladder wall thickening, which can be seen with cystitis. 2. Bilateral prominent pelvic vessels. Clinical correlation for symptoms of pelvic congestion syndrome is recommended. CBC WITH DIFFERENTIAL STAT 04/14/2019 2:03 PM Right upper Results for this CDT quadrant abdominal procedure are in pain the results section. URINALYSIS STAT 04/14/2019 2:03 PM Right upper Results for this CDT quadrant abdominal procedure are in pain the results section. CBC WITH DIFF Routine 04/14/2019 2:03 PM Right upper Results for this CDT quadrant abdominal procedure are in pain the results section. COMP. METABOLIC PANEL STAT 04/14/2019 2:03 PM Right upper Results for this (44096) CDT quadrant abdominal procedure are in pain the results section. LIPASE STAT 04/14/2019 2:03 PM Right upper Results for this CDT quadrant abdominal procedure are in pain the results section. POCT TEST Routine 04/14/2019 2:02 PM Right upper Results for this CDT quadrant abdominal procedure are in pain the results section. documented in this encounter Results CBC WITH DIFFERENTIAL (04/14/2019 2:03 PM CDT) WBC 7.44 4.30 - 11.10 [facility] 10*3/L [facility] RBC 4.99 3.93 - 5.25 [facility] 10*6/L [facility] HGB 10.2 (L) 11.6 - 15.0 [facility] g/dL [facility] HCT 35.3 (L) 35.7 - 45.2 % [facility] MCV 70.7 (L) 80.6 - 95.5 fL [facility] MCH 20.4 (L) 25.9 - 32.8 pg [facility] MCHC 28.9 (L) 31.6 - 35.1 [facility] g/dL [facility] RDW-SD 40.2 39.0 - 49.9 fL [facility] RDW-CV 16.0 (H) 12.0 - 15.5 % [facility] PLT 372 (H) 166 - 358 [facility] 10*3/L [facility] MPV 9.3 (L) 9.5 - 12.9 fL [facility] NRBC/100 WBC 0.0 0.0 - 10.0 /100 [facility] WBCs [facility] NRBC x10^3 <0.01 10*3/L [facility] GRAN MAT (NEUT) % 76.1 % [facility] IMM GRAN % 0.30 % [facility] LYMPH % 14.9 % [facility] MONO % 8.3 % [facility] EOS % 0.3 % [facility] BASO % 0.1 % [facility] GRAN MAT x10^3(ANC) 5.66 1.88 - 7.09 [facility] 10*3/uL [facility] IMM GRAN x10^3 <0.03 0.00 - 0.06 [facility] 10*3/uL [facility] LYMPH x10^3 1.11 (L) 1.32 - 3.29 [facility] 10*3/uL [facility] MONO x10^3 0.62 0.33 - 0.92 [facility] 10*3/uL [facility] EOS x10^3 <0.03 (L) 0.03 - 0.39 [facility] 10*3/uL [facility] BASO x10^3 <0.03 0.01 - 0.07 [facility] 10*3/uL [facility] Specimen Blood - VENOUS Performing Organization Address City/[facility]/Zipcode Phone Number [facility] CLIA: [id number], [address] [place] [phone] [address] LIPASE (04/14/2019 2:03 PM CDT) LIPASE 99 0 - 220 U/L [facility] Specimen Blood - VENOUS Performing Organization Address City/[facility]/Zipcode Phone Number [facility] CLIA: [id number], [address] [place] [address] URINALYSIS (04/14/2019 2:03 PM CDT) APPEARANCE Slightly Cloudy (A) Clear [facility] COLOR Yellow Yellow [facility] PH 6.0 4.8 - 8.0 [facility] SP GRAVITY 1.025 1.003 - 1.030 [facility] GLU U QUAL Negative Negative [facility] BLOOD Negative Negative [facility] KETONES Negative Negative [facility] PROTEIN Negative Negative [facility] UROBILIN 0.2 mg/dL 0-1.0 mg/dL [facility] BILIRUBIN Negative Negative [facility] NITRITE Negative Negative [facility] LEUK LAURA Negative Negative [facility] RBC/HPF 0 0 - 3 HPF [facility] WBC/HPF 7 (H) 0 - 5 HPF [facility] BACTERIA Many (A) Negative [facility] MUCOUS Marked (A) Negative LPF [facility] SQ EPITH 25 HPF [facility] Specimen Urine - URINE, CLEAN CATCH Performing Organization Address City/State/Zipcode Phone Number [facility] CLIA: [id number], [address] [place] [address] COMP. METABOLIC PANEL (30657) (04/14/2019 2:03 PM CDT) NA 142 135 - 145 [facility] mmol/L [facility] K 3.8 3.5 - 5.0 [facility] mmol/L [facility] CL 105 98 - 108 mmol/L [facility] CO2 TOTAL 26 23 - 31 mmol/L [facility] AGAP 11 2 - 16 [facility] BUN 15 7 - 23 mg/dL [facility] GLUCOSE 118 (H) 70 - 110 mg/dL [facility] CREATININE 0.83 0.50 - 1.04 [facility] mg/dL [facility] TOTAL BILI 0.4 0.1 - 1.1 mg/dL [facility] CALCIUM 9.0 8.6 - 10.6 [facility] mg/dL [facility] T PROTEIN 7.9 6.3 - 8.2 g/dL [facility] ALBUMIN 4.3 3.5 - 5.0 g/dL [facility] ALK PHOS 72 34 - 122 U/L [facility] ALT(SGPT) 25 9 - 51 U/L [facility] AST(SGOT) 29 13 - 40 U/L [facility] eGFR Calculation 83.8 mL/min/1.73m2 [facility] ([facility] [place]) eGFR Calculation 101.5 mL/min/1.73m2 [facility] ([facility]) [facility] Specimen Blood - VENOUS Narrative Performed At Association of Glomerular Filtration Rate (GFR) [facility] and Staging of Kidney Disease* + + +- + | GFR (mL/min/1.73 m2)| With Kidney Damage|Without Kidney Damage + + +- + |>90| Stage one| Normal + + +- + |60-89|S tage two| Decreased GFR + + +- + |30-59|S tage three| Stage three + + +- + |15-29|S tage four | Stage four + + +- + |<15 (or dialysis)|Stage five | Stage five + + +- + *Each stage assumes the associated GFR level has been in effect for at least three months.Stages 1 to 5, with or without kidney disease, indicate chronic kidney disease. Notes: Determination of stages one and two (with eGFR >59mL/min/1.73 m2) requires estimation of kidney damage for at least three months as defined by structural or functional abnormalities of the kidney, manifested by either: Pathological abnormalities or Markers of kidney damage (including abnormalities in the composition of the blood or urine or abnormalities in imaging tests). Performing Organization Address City/State/Zipcode Phone Number [facility] CLIA: [id number], [address] [place] [address] [facility] [address] POCT TEST (04/14/2019 2:02 PM CDT) POCT PREG negative On board controls acceptable present with C Line POCT PREG LOT # [id number] POCT PREG TEST DATE 2020-09-04 Specimen Urine documented in this encounter Visit Diagnoses Diagnosis Right upper quadrant abdominal pain - Primary Abdominal pain, right upper quadrant documented in this encounter Administered Medications Medication Order MAR Action Action Date Dose Rate Site dicyclomine (BENTYL) capsule 10 mg Given 04/14/2019 3:08 PM CDT 10 mg 10 mg, Oral, QID, First dose on 04/14/19 at 1600, Until Discontinued, Routine Medication Order MAR Action Action Date Dose Rate Site iohexol (OMNIPAQUE 350 BULK-150 Given 04/14/2019 3:26 PM CDT 120 mL mL) injection 120 mL 120 mL, Intravenous, ONCE, 1 dose, 04/14/19 at 1545, Routine morpHINE injection 4 mg Given 04/14/2019 2:04 PM CDT 4 mg 4 mg, Slow IV Push, ONCE, 1 dose, 04/14/19 at 1500, Routine NaCl 0.9% (NS) bolus infusion New Bag 04/14/2019 2:03 PM CDT 1,000 mL 999 mL/hr 1,000 mL at 999 mL/hr, 1,000 mL, IV Infusion, ONCE, 1 dose, 04/14/19 at 1400, STAT ondansetron (ZOFRAN (PF)) injection 4 mg Given 04/14/2019 2:04 PM CDT 4 mg 4 mg, Slow IV Push, ONCE, 1 dose, 04/14/19 at 1500, Routine ondansetron (ZOFRAN (PF)) injection 4 mg Given 04/14/2019 3:19 PM CDT 4 mg 4 mg, Slow IV Push, ONCE, 1 dose, 04/14/19 at 1530, Routine documented in this encounter Advance Directives Name Relationship Healthcare Agent Communication Relationship Marie Ragland Mother Primary healthcare agent [email or web address]
--- NOTE | 2019-08-16 22:14 | RAD REPORT ---
EXAM DESCRIPTION: US - Abdomen Exam Limited - 08/16/2019 10:07 pm CLINICAL HISTORY: Abdominal pain. COMPARISON: March 2019 FINDINGS: The gallbladder wall is not thickened. A gallstone is not seen. The biliary tree is normal caliber. IMPRESSION: Unremarkable gallbladder ultrasound.
[2019-08-16] MEDS ORDERED: ONDANSETRON 4 MG/2 ML VIAL ONE (22:15)
[2019-08-16] MEDS ORDERED: KETOROLAC 30 MG/ML INJ ONE (22:15)
[2019-08-16 22:19] LABS: Absolute Lymphocytes (CBC) 2.7 K/uL (0.7-4.9); Basophils % 0.4 % (0-1.3); Hematocrit 31.3 % (36.0-45.0); Lymphocytes % 26.8 % (15.3-44.8); MPV 7.6 fL (7.6-11.3); RBC Red Blood Cell Count 4.66 M/uL (3.86-4.86)
[2019-08-16 22:39] LABS: ALT/SGPT 37 U/L (12-78); AST/SGOT 21 U/L (15-37); Albumin 3.4 g/dL (3.4-5.0); Alkaline Phosphatase 74 U/L (45-117); BUN Blood Urea Nitrogen 11 mg/dL (7-18); Bicarbonate 27 mmol/L (21-32); Bilirubin Direct < 0.1 mg/dL (0-0.2); Bilirubin Total 0.1 mg/dL (0.2-1.0); Glucose Level 124 mg/dL (74-106); Lipase 270 U/L (73-393); Potassium 3.8 mmol/L (3.5-5.1); Protein, Total 7.6 g/dL (6.4-8.2); Sodium Level 137 mmol/L (136-145)
[2019-08-16 22:42] LABS: Blood Morphology Comment NOTED (NOT SEEN); Hypochromasia 1+; Platelet Estimate ADEQ; Urine White Blood Cell Casts OK
--- NOTE | 2019-08-16 23:17 | EDPHYS ---
Physician Documentation [facility] Name: Cher Ragland Age: 23 yrs Sex: Female : 1995 Arrival Date: 08/16/2019 Time: 21:18 Bed 27 Private MD: ED Physician Champ Sampson HPI: 08/16 23:15 This 23 yrs old Black Female presents to ER via Ambulatory with complaints of Abdominal la1 Pain. 23:36 The patient presents with abdominal pain in the epigastric area, in the right upper la1 quadrant. Onset: The symptoms/episode began/occurred today. The symptoms do not radiate. Associated signs and symptoms: Pertinent negatives: nausea, vomiting, and diarrhea, anorexia, blood in stools, chest pain, constipation, diarrhea, dysuria, fever, headache, hematuria, nausea, vaginal discharge, vomiting, vomiting blood. The symptoms are described as sharp. Modifying factors: The symptoms are alleviated by nothing, the symptoms are aggravated by food. Severity of pain: At its worst the pain was moderate in the emergency department the pain has improved. The patient has experienced similar episodes in the past. pt reports she has known gallstones, has seen Bryon in the past but he said there was no reason to take out her gall bladder yet. Pt reports worsening pain after eating for the last few days. 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 - Social history:: Smoking status: Patient/guardian denies using tobacco. - Ebola Screening: : No symptoms or risks identified at this time. ROS: 23:37 Constitutional: Negative for fever, chills, and weight loss, Eyes: Negative for injury, la1 pain, redness, and discharge, ENT: Negative for injury, pain, and discharge, Neck: Negative for injury, pain, and swelling, Cardiovascular: Negative for chest pain, palpitations, and edema, Respiratory: Negative for shortness of breath, cough, wheezing, and pleuritic chest pain, Back: Negative for injury and pain, : Negative for injury, bleeding, discharge, and swelling, MS/Extremity: Negative for injury and deformity. 23:37 Neuro: Negative for headache, weakness, numbness, tingling, and seizure. 23:37 Abdomen/GI: Positive for abdominal pain, nausea. 23:37 Back: Negative for injury or acute deformity, decreased range of motion, pain at rest, pain with movement, radiated pain, acute changes. Exam: 23:38 Constitutional: This is a well developed, well nourished patient who is awake, alert, la1 and in no acute distress. Head/Face: Normocephalic, atraumatic. Neck: No Meningismus. Chest/axilla: Normal chest wall appearance and motion. Nontender with no deformity. No lesions are appreciated. Cardiovascular: Regular rate and rhythm with a normal S1 and S2. No gallops, murmurs, or rubs. Normal PMI, no JVD. No pulse deficits. Respiratory: No increased work of breathing, no retractions or nasal flaring. 23:38 Back: No spinal tenderness. No costovertebral tenderness. Full range of motion. 23:38 Abdomen/GI: Inspection: abdomen appears normal, Bowel sounds: normal, in all quadrants, Palpation: soft, in all quadrants, mild abdominal tenderness, in the right upper quadrant. Vital Signs: 21:51 BP 117 / 79; Pulse 83; Resp 16; Temp 97.0; Pulse Ox 100% on R/A; Weight 79.38 kg; aa1 Height 5 ft. 2 in. (157.48 cm); Pain 8/10; 21:51 Body Mass Index 32.01 (79.38 kg, 157.48 cm) aa1 MDM: 21:41 Patient medically screened. [facility] 08/16 21:51 Order name: Basic Metabolic Panel; Complete Time: 22:42 [facility] 08/16 21:51 Order name: CBC with Diff [facility] 08/16 21:49 Order name: Abdomen Limited US; Complete Time: 22:42 [facility] 08/16 21:51 Order name: Hepatic Function; Complete Time: 22:42 [facility] 08/16 21:51 Order name: Lipase; Complete Time: 22:42 [facility] 08/16 22:43 Order name: CBC Smear Scan [facility] 08/16 21:51 Order name: IV Saline Lock; Complete Time: 22:18 [facility] 08/16 21:51 Order name: Labs collected and sent; Complete Time: 22:18 la1 Administered Medications: 22:16 Drug: Zofran 4 mg Route: IVP; Site: right antecubital; aj1 22:17 Drug: TORadol - Ketorolac 15 mg Route: IVP; Site: right antecubital; aj1 Disposition: 08/17 04:50 Co-signature as Attending Physician, Champ Sampson MD I agree with the assessment and tw4 plan of care. Disposition: 08/16/19 23:16 Discharged to Home. Impression: Abdominal and pelvic pain. - Condition is Stable. - Discharge Instructions: Abdominal Pain, Adult, Cholelithiasis. - Medication Reconciliation Form, Thank You Letter form. - Follow up: Private Physician; When: 2 - 3 days; Reason: Recheck today's complaints, Re-evaluation by your physician. Follow up: Addy Slater MD; When: 2 - 3 days; Reason: Recheck today's complaints, Re-evaluation by your physician. - Problem is an ongoing problem. - Symptoms have improved. Signatures: Dispatcher [employer] EDGail Perez RN RN aj1 Tiffany Kaba RN RN aa1 Moiz Bliss, GUT CLEANER-C GUT CLEANER-Cla1 Champ Sampson MD MD tw4 Wallace Stearns RN RN tr5 Corrections: (The following items were deleted from the chart) 08/16 23:38 23:16 08/16/2019 23:16 Discharged to Home. Impression: Abdominal and pelvic pain. tr5 Condition is Stable. Forms are Medication Reconciliation Form, Thank You Letter, Antibiotic Education, Prescription Opioid Use. Follow up: Private Physician; When: 2 - 3 days; Reason: Recheck today's complaints, Re-evaluation by your physician. Follow up: Addy Slater; When: 2 - 3 days; Reason: Recheck today's complaints, Re-evaluation by your physician. Problem is an ongoing problem. Symptoms have improved. la1
--- NOTE | 2019-08-16 23:17 | ER ---
Nurse's Notes [facility] Name: Cher Ragland Age: 23 yrs Sex: Female : 1995 Arrival Date: 08/16/2019 Time: 21:18 Bed 27 Private MD: Diagnosis: Abdominal and pelvic pain Presentation: 08/16 21:49 Presenting complaint: Patient states: she was diagnosed with cholelithiasis several aa1 months ago and had f/u with Dr. Slater and was told it was not necessary to have it removed at that time but states now the pain has gotten significantly worse to the point she is afraid to eat and she is vomiting as well. Transition of care: patient was not received from another setting of care. Onset of symptoms was June 2019. Risk Assessment: Do you want to hurt yourself or someone else? Patient reports no desire to harm self or others. Initial Sepsis Screen: Does the patient meet any 2 criteria? No. Patient's initial sepsis screen is negative. Does the patient have a suspected source of infection? Yes: Acute abdominal pain. Care prior to arrival: None. 21:49 Method Of Arrival: Ambulatory aa1 21:49 Acuity: MANAV 3 aa1 Triage Assessment: 21:51 General: Appears in no apparent distress. uncomfortable, Behavior is calm, cooperative, aa1 appropriate for age. 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 - Social history:: Smoking status: Patient/guardian denies using tobacco. - Ebola Screening: : No symptoms or risks identified at this time. Screenin:00 Abuse screen: Denies threats or abuse. Nutritional screening: No deficits noted. tr5 Tuberculosis screening: No symptoms or risk factors identified. Fall Risk None identified. Assessment: 22:00 General: Appears uncomfortable, Behavior is calm, cooperative, appropriate for age. tr5 Pain: Complains of pain in abdomen. Neuro: Level of Consciousness is awake, alert, obeys commands, Oriented to person, place, time, Core Placer are equal bilaterally Moves all extremities. Cardiovascular: Heart tones present Capillary refill < 3 seconds. Respiratory: Airway is patent Respiratory effort is even, unlabored, Respiratory pattern is regular, symmetrical. GI: Bowel sounds present X 4 quads. Abd is soft Reports upper abdominal pain, vomiting. : No signs and/or symptoms were reported regarding the genitourinary system. EENT: No signs and/or symptoms were reported regarding the EENT system. Derm: No signs and/or symptoms reported regarding the dermatologic system. Musculoskeletal: No signs and/or symptoms reported regarding the musculoskeletal system. Vital Signs: 21:51 BP 117 / 79; Pulse 83; Resp 16; Temp 97.0; Pulse Ox 100% on R/A; Weight 79.38 kg; aa1 Height 5 ft. 2 in. (157.48 cm); Pain 8/10; 21:51 Body Mass Index 32.01 (79.38 kg, 157.48 cm) aa1 ED Course: 21:18 Patient arrived in ED. cf2 21:39 Wallace Stearns RN is Primary Nurse. tr5 21:41 [facility]iss [facility]C [facility] la1 21:41 Champ Sampson MD is Attending Physician. la1 21:50 Triage completed. aa1 21:51 Arm band placed on right wrist. aa1 22:00 Bed in low position. Call light in reach. tr5 22:11 Abdomen Limited US In Process Unspecified. EDMS 23:15 Addy Slater MD is Referral Physician. la1 23:37 No provider procedures requiring assistance completed. IV discontinued. tr5 Administered Medications: 22:16 Drug: Zofran 4 mg Route: IVP; Site: right antecubital; aj1 22:17 Drug: TORadol - Ketorolac 15 mg Route: IVP; Site: right antecubital; aj1 Outcome: 23:16 Discharge ordered by . la1 23:37 Discharged to home ambulatory. tr5 23:37 Condition: stable 23:37 Discharge instructions given to patient, Instructed on discharge instructions, follow up and referral plans. Demonstrated understanding of instructions, follow-up care. 23:38 Patient left the ED. tr5 Signatures: Dispatcher [employer] EDWV Gail Boyd RN RN aj1 Tiffany Kaba RN RN aa1 Moiz Bliss FNP-C FNP-Cla1 Wallace Stearns, RN RN tr5 Dima Wheeler 2
[2019-08-17 02:08] VITALS: BP 117/79; TEMP 97; O2SAT 100
== END 2019-08-16 23:38 | disposition home or self-care (01) ==
LOC: ER 21:14
DX: R10.2 Pelvic and perineal pain (principal)
CPT/HCPCS: 36415; 76705; 80048; 80076; 83690; 85025; 96374; 96375; 99283; J2405

== ENCOUNTER 2021-01-13 21:08 | Emergency (ER) | payer SELFPAY ==
--- OUTSIDE RECORDS SUMMARY | 2021-01-13 21:13 | XMS REPORT | Continuity of Care Document ---
:1995 Author Organization [facility] t Address [address] [place] [address] Care Team Providers Name Role Phone Ortiz CASTILLO, Hussein Attending Clinician Doctor Unassigned, Name Attending Clinician Unavailable Problems This patient has no known problems. Allergies, Adverse Reactions, Alerts This patient has no known allergies or adverse reactions. Medications This patient has no known medications. Procedures This patient has no known procedures. Encounters Start End Encounter Admission Attending Care Care Encounter Source Date/Time Date/Time Type Type Clinicians Facility Department ID 2020-12-18 2020-12-18 Office Luzmaria Alcantar [id number] 14:03:40 15:09:53 [address] [facility] [id number] [place] [id number] [place] [id number] [address] 2020-12-18 2020-12-18 Orders Doctor HOFFMAN [id number] 00:00:00 00:00:00 Only UnassignedCOLLEEN [id number] [facility] [id number] Results This patient has no known results.
[2021-01-13 22:08] LABS: Urine Blood Negative (Negative); Urine Glucose Negative (Negative); Urine Protein Negative (Negative); Urine Specific Gravity >=1.030 (1.005-1.030)
[2021-01-13 22:28] LABS: Absolute Lymphocytes (CBC) 2.9 K/uL (0.7-4.9); Basophils % 0.4 % (0-1.3); Hematocrit 32.3 % (36.0-45.0); Lymphocytes % 39.4 % (15.3-44.8); MPV 8.2 fL (7.6-11.3); RBC Red Blood Cell Count 4.75 M/uL (3.86-4.86)
[2021-01-13] MEDS ORDERED: MORPHINE 4 MG/ML SYR ONE (22:35)
[2021-01-13] MEDS ORDERED: ONDANSETRON 4 MG/2 ML VIAL ONE (22:36)
[2021-01-13 22:41] LABS: ALT/SGPT 50 U/L (12-78); AST/SGOT 78 U/L (15-37); Alkaline Phosphatase 71 U/L (45-117); BUN Blood Urea Nitrogen 18 mg/dL (7-18); Bicarbonate 25 mmol/L (21-32); Bilirubin Direct < 0.1 mg/dL (0-0.2); Bilirubin Total 0.2 mg/dL (0.2-1.0); Glucose Level 130 mg/dL (74-106); Lipase 357 U/L (73-393); Potassium 3.5 mmol/L (3.5-5.1); Protein, Total 8.1 g/dL (6.4-8.2); Sodium Level 140 mmol/L (136-145)
--- NOTE | 2021-01-13 23:13 | EDPHYS ---
Physician Documentation [facility] Name: Cher Ragland Age: 25 yrs Sex: Female : 1995 Arrival Date: 01/13/2021 Time: 21:12 Bed 8 Private MD: ED Physician Champ Sampson HPI: 01/13 23:04 This 25 yrs old Black Female presents to ER via Ambulatory with complaints of tw4 Gaullbladder pain. 23:04 The patient presents with abdominal pain in the right upper quadrant. Onset: The tw4 symptoms/episode began/occurred 2 day(s) ago. The symptoms do not radiate. Associated signs and symptoms: Pertinent positives: nausea, Pertinent negatives: anorexia, blood in stools, chest pain, constipation, diarrhea, dysuria, fever, vomiting, vomiting blood. The symptoms are described as dull. Modifying factors: The symptoms are alleviated by nothing, the symptoms are aggravated by nothing. Severity of pain: At its worst the pain was moderate in the emergency department the pain is unchanged. The patient has not experienced similar symptoms in the past. 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 - Social history:: Smoking status: Patient denies any tobacco usage or history of. ROS: 23:04 Constitutional: Negative for fever, chills, and weight loss, Eyes: Negative for injury, tw4 pain, redness, and discharge, Cardiovascular: Negative for chest pain, palpitations, and edema, Respiratory: Negative for shortness of breath, cough, wheezing, and pleuritic chest pain, Back: Negative for injury and pain, MS/Extremity: Negative for injury and deformity, Skin: Negative for injury, rash, and discoloration, Neuro: Negative for headache, weakness, numbness, tingling, and seizure. Exam: 23:04 Constitutional: This is a well developed, well nourished patient who is awake, alert, tw4 and in no acute distress. Head/Face: Normocephalic, atraumatic. Chest/axilla: Normal chest wall appearance and motion. Nontender with no deformity. No lesions are appreciated. Cardiovascular: Regular rate and rhythm with a normal S1 and S2. No gallops, murmurs, or rubs. Normal PMI, no JVD. No pulse deficits. Respiratory: Lungs have equal breath sounds bilaterally, clear to auscultation and percussion. No rales, rhonchi or wheezes noted. No increased work of breathing, no retractions or nasal flaring. Back: No spinal tenderness. No costovertebral tenderness. Full range of motion. MS/ Extremity: Pulses equal, no cyanosis. Neurovascular intact. Full, normal range of motion. Neuro: Awake and alert, GCS 15, oriented to person, place, time, and situation. Cranial nerves II-XII grossly intact. Motor strength 5/5 in all extremities. Sensory grossly intact. Cerebellar exam normal. Normal gait. 23:04 Abdomen/GI: Inspection: abdomen appears normal, Bowel sounds: diminished, Palpation: moderate abdominal tenderness, in the right upper quadrant. Vital Signs: 21:30 BP 123 / 78; Pulse 81; Resp 18 S; Temp 98.4(O); Pulse Ox 98% on R/A; Weight 83.46 kg bb (R); Height 5 ft. 2 in. (157.48 cm) (R); Pain 8/10; 23:13 BP 110 / 70; Pulse 80; Resp 17; Pulse Ox 98% ; Pain 3/10; rr5 23:37 BP 112 / 78; Pulse 85; Resp 16; Pulse Ox 98% ; rr5 21:30 Body Mass Index 33.65 (83.46 kg, 157.48 cm) bb MDM: 23:04 Differential diagnosis: gastritis, gastroesophageal reflux disease, GI Bleed, tw4 Hepatitis, pancreatitis, Peptic Ulcer Disease, Perf. Duodenal Ulcer, Perf. Gastric Ulcer, Peritonitis. Data reviewed: vital signs, nurses notes. Data reviewed: lab test result(s), CBC, electrolytes, hepatic panel, radiologic studies, ultrasound. Data interpreted: Pulse oximetry: Interpretation: normal. Counseling: I had a detailed discussion with the patient and/or guardian regarding: the historical points, exam findings, and any diagnostic results supporting the discharge/admit diagnosis, lab results, radiology results. Medication response: morphine relieved the patient's pain. Symptoms have resolved, Zofran relieved the patient's nausea. Special discussion: I discussed with the patient/guardian in detail that at this point there is no indication for admission to the hospital. It is understood, however, that if the symptoms persist or worsen the patient needs to return immediately for re-evaluation. 23:12 Patient medically screened. [facility] 01/13 21:43 Order name: Basic Metabolic Panel [facility] 01/13 21:43 Order name: CBC with Diff [facility] 01/13 21:43 Order name: Hepatic Function [facility] 01/13 21:43 Order name: Lipase [facility] 01/13 21:44 Order name: Basic Metabolic Panel; Complete Time: 23:11 [facility] 01/13 23:11 Interpretation: Normal except: GLUC 130; CL 108. [facility] 01/13 21:44 Order name: CBC with Automated Diff [facility] 01/13 22:39 Interpretation: Normal except: HGB 10.2; HCT 32.3; MCV 68.0; MCH 21.4; MCHC 31.5. [facility] 01/13 21:43 Order name: US Abdomen Limited [facility] 01/13 21:44 Order name: Liver (Hepatic) Function; Complete Time: 23:11 [facility] 01/13 23:11 Interpretation: Normal except: A/G 1.0; GLOB 4.1; AST 78. [facility] 01/13 21:44 Order name: Lipase; Complete Time: 23:11 [facility] 01/13 22:08 Order name: Urine Dipstick-Ancillary; Complete Time: 22:39 [facility] 01/13 22:39 Interpretation: Normal except: UESTR Trace. [facility] 01/13 22:09 Order name: Urine Microscopic Only rr5 01/13 22:10 Order name: Urine Microscopic Only [facility] 01/13 22:31 Order name: Urine --Ancillary (enter results) tt3 01/13 22:38 Order name: CBC Smear Scan [facility] 01/13 21:43 Order name: IV Saline Lock; Complete Time: 21:56 [facility] 01/13 21:43 Order name: Labs collected and sent; Complete Time: 21:56 [facility] 01/13 21:43 Order name: Urine Dipstick-Ancillary (obtain specimen); Complete Time: 22:09 [facility] 01/13 21:43 Order name: Urine Test (obtain specimen); Complete Time: 22:09 tw4 Administered Medications: 22:19 Drug: Zofran (Ondansetron) 4 mg Route: IVP; Site: left antecubital; rr5 23:07 Follow up: Response: No adverse reaction rr5 22:22 Drug: morphine 4 mg {Note: rass 0.} Route: IVP; Site: left antecubital; rr5 23:07 Follow up: Response: No adverse reaction; RASS: Alert and Calm (0) rr5 Disposition: 01/13/21 23:12 Discharged to Home. Impression: BILIARY COLIC, Cholelithiasis. - Condition is Stable. - Discharge Instructions: Biliary Colic, Adult. - Prescriptions for Ibuprofen 800 mg Oral Tablet - take 1 tablet by ORAL route every 12 hours As needed take with food; 20 tablet. Zofran 4 mg Oral Tablet - take 1 tablet by ORAL route every 12 hours As needed; 20 tablet. - Medication Reconciliation Form, Thank You Letter, Antibiotic Education, Prescription Opioid Use form. - Follow up: Champ Sampson MD; When: Upon discharge from the Emergency Department; Reason: Recheck today's complaints, Continuance of care, Re-evaluation by your physician. Follow up: Private Physician; When: Upon discharge from the Emergency Department; Reason: Recheck today's complaints, Continuance of care, Re-evaluation by your physician. Follow up: Addy Slater MD; When: Upon discharge from the Emergency Department; Reason: Recheck today's complaints, Continuance of care, Re-evaluation by your physician. Follow up: Aleksey Au MD; When: Upon discharge from the Emergency Department; Reason: Recheck today's complaints, Continuance of care, Re-evaluation by your physician. - Problem is an ongoing problem. - Symptoms have improved. Signatures: Dispatcher [employer] EDMS Bethany Hagen RN RN bb Champ Sampson MD MD tw4 Dylan Devine RN RN rr5 Corrections: (The following items were deleted from the chart) 23:12 23:12 01/13/2021 23:12 Discharged to Home. Impression: BILIARY COLIC; Cholelithiasis. tw4 Condition is Stable. Forms are Medication Reconciliation Form, Thank You Letter, Antibiotic Education, Prescription Opioid Use. Follow up: Champ Ricedley; When: Upon discharge from the Emergency Department; Reason: Recheck today's complaints, Continuance of care, Re-evaluation by your physician. tw4 23:13 23:12 01/13/2021 23:12 Discharged to Home. Impression: BILIARY COLIC; Cholelithiasis. tw4 Condition is Stable. Forms are Medication Reconciliation Form, Thank You Letter, Antibiotic Education, Prescription Opioid Use. Follow up: Champ Sampson; When: Upon discharge from the Emergency Department; Reason: Recheck today's complaints, Continuance of care, Re-evaluation by your physician. Problem is an ongoing problem. Symptoms have improved. tw4 23:39 23:13 01/13/2021 23:12 Discharged to Home. Impression: BILIARY COLIC; Cholelithiasis. rr5 Condition is Stable. Discharge Instructions: Biliary Colic, Adult. Prescriptions for Ibuprofen 800 mg Oral Tablet - take 1 tablet by ORAL route every 12 hours As needed take with food; 20 tablet, Zofran 4 mg Oral Tablet - take 1 tablet by ORAL route every 12 hours As needed; 20 tablet. and Forms are Medication Reconciliation Form, Thank You Letter, Antibiotic Education, Prescription Opioid Use. Follow up: Private Physician; When: Upon discharge from the Emergency Department; Reason: Recheck today's complaints, Continuance of care, Re-evaluation by your physician. Follow up: Addy Slater; When: Upon discharge from the Emergency Department; Reason: Recheck today's complaints, Continuance of care, Re-evaluation by your physician. Follow up: Aleksey Au; When: Upon discharge from the Emergency Department; Reason: Recheck today's complaints, Continuance of care, Re-evaluation by your physician. Problem is an ongoing problem. Symptoms have improved. tw4
--- NOTE | 2021-01-13 23:13 | ER ---
Nurse's Notes [facility] Name: Cher Ragland Age: 25 yrs Sex: Female : 1995 Arrival Date: 01/13/2021 Time: 21:12 Bed 8 Private MD: Diagnosis: BILIARY COLIC;Cholelithiasis Presentation: 01/13 21:30 Chief complaint: Patient states: she was diagnosed with gallbladder problems a year ago bb and has had intermittent pain since then but today the pain keeps coming back and she is nauseous. Coronavirus screen: At this time, the client does not indicate any symptoms associated with coronavirus-19. Ebola Screen: No symptoms or risks identified at this time. Initial Sepsis Screen: Does the patient meet any 2 criteria? No. Patient's initial sepsis screen is negative. Does the patient have a suspected source of infection? No. Patient's initial sepsis screen is negative. Risk Assessment: Do you want to hurt yourself or someone else? Patient reports no desire to harm self or others. Onset of symptoms was January 13, 2021. 21:30 Method Of Arrival: Ambulatory bb 21:30 Acuity: MANAV 3 bb Triage Assessment: 21:32 General: Appears uncomfortable, Behavior is calm, cooperative. Pain: Complains of pain bb in right upper quadrant Pain currently is 8 out of 10 on a pain scale. Neuro: Level of Consciousness is awake, alert, obeys commands, Oriented to person, place, time, situation. Cardiovascular: Capillary refill < 3 seconds Patient's skin is warm and dry. Respiratory: Respiratory effort is even, unlabored, Respiratory pattern is regular. GI: Abdomen is round Abd is soft X 4 quads Abdomen is tender to palpation in right upper quadrant Reports upper abdominal pain, nausea. Derm: Skin is pink, warm \T\ dry. Musculoskeletal: Circulation, motion, and sensation intact. 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 - Social history:: Smoking status: Patient denies any tobacco usage or history of. Screenin:30 Abuse screen: Denies threats or abuse. Denies injuries from another. Nutritional rr5 screening: No deficits noted. Tuberculosis screening: No symptoms or risk factors identified. Fall Risk IV access (20 points). Total Myers Fall Scale indicates No Risk (0-24 pts). Assessment: 22:09 General: Appears in no apparent distress. uncomfortable, Behavior is calm, cooperative, rr5 appropriate for age. Pain: Complains of pain in diaphragm Pain currently is 8 out of 10 on a pain scale. Quality of pain is described as aching, Pain began gradually, Is intermittent. Neuro: Level of Consciousness is awake, alert, obeys commands, Oriented to person, place, time. Cardiovascular: Capillary refill < 3 seconds Patient's skin is warm and dry. Respiratory: Airway is patent Respiratory effort is even, unlabored, Respiratory pattern is regular, symmetrical. GI: Abdomen is round non-distended, Reports upper abdominal pain, nausea. : No signs and/or symptoms were reported regarding the genitourinary system. EENT: No signs and/or symptoms were reported regarding the EENT system. Derm: Skin is intact, is healthy with good turgor, Skin temperature is warm. Musculoskeletal: Capillary refill < 3 seconds. 23:13 Reassessment: Patient appears in no apparent distress at this time. Patient is alert, rr5 oriented x 3, equal unlabored respirations, skin warm/dry/pink. Patient states feeling better. Patient states symptoms have improved. 23:37 Reassessment: Patient appears in no apparent distress at this time. Patient is alert, rr5 oriented x 3, equal unlabored respirations, skin warm/dry/pink. discharge instruction given and explained without complaints made. Vital Signs: 21:30 BP 123 / 78; Pulse 81; Resp 18 S; Temp 98.4(O); Pulse Ox 98% on R/A; Weight 83.46 kg bb (R); Height 5 ft. 2 in. (157.48 cm) (R); Pain 8/10; 23:13 BP 110 / 70; Pulse 80; Resp 17; Pulse Ox 98% ; Pain 3/10; rr5 23:37 BP 112 / 78; Pulse 85; Resp 16; Pulse Ox 98% ; rr5 21:30 Body Mass Index 33.65 (83.46 kg, 157.48 cm) bb ED Course: 21:12 Patient arrived in ED. es 21:15 Champ Sampson MD is Attending Physician. tw4 21:31 Triage completed. bb 21:32 Arm band placed on Patient placed in waiting room, Patient notified of wait time. bb 21:42 Dylan Devine, RN is Primary Nurse. rr5 21:54 Inserted saline lock: 20 gauge in left antecubital area, using aseptic technique. Blood jb5 collected. 22:01 US Abdomen Limited In Process Unspecified. EDMS 22:05 Lipase Sent. jb5 22:05 CBC with Automated Diff Sent. jb5 22:05 Basic Metabolic Panel Sent. jb5 22:05 Liver (Hepatic) Function Sent. jb5 22:06 Basic Metabolic Panel Sent. jb5 22:06 CBC with Diff Sent. jb5 22:06 Hepatic Function Sent. jb5 22:06 Lipase Sent. jb5 22:10 Patient has correct armband on for positive identification. Bed in low position. rr5 23:11 Champ Sampson MD is Referral Physician. tw4 23:12 Referral Physician role handed off by Champ Sampson MD tw4 23:13 Addy Slater MD is Referral Physician. tw4 23:13 Aleksey Au MD is Referral Physician. tw4 23:14 No provider procedures requiring assistance completed. ea 23:38 IV discontinued, intact, bleeding controlled, No redness/swelling at site. Pressure rr5 dressing applied. Administered Medications: 22:19 Drug: Zofran (Ondansetron) 4 mg Route: IVP; Site: left antecubital; rr5 23:07 Follow up: Response: No adverse reaction rr5 22:22 Drug: morphine 4 mg {Note: rass 0.} Route: IVP; Site: left antecubital; rr5 23:07 Follow up: Response: No adverse reaction; RASS: Alert and Calm (0) rr5 Outcome: 23:12 Discharge ordered by . tw4 23:38 Discharged to home ambulatory. rr5 23:38 Condition: stable 23:38 Discharge instructions given to patient, Instructed on discharge instructions, follow up and referral plans. medication usage, Demonstrated understanding of instructions, follow-up care, medications, Prescriptions given X 2. 23:39 Patient left the ED. rr5 Signatures: Dispatcher [employer] EDNubia Lee Brenda, RN RN eNema Todd5 Kiersten Pro RN RN ea Wadley, Terrence, MD MD tw4 Dylan Devine RN RN rr5
[2021-01-13 23:54] LABS: Urine Specific Gravity/Preg >1.030 (1.005-1.030)
[2021-01-13 23:58] LABS: Blood Morphology Comment NOTED (NOT SEEN); Hypochromasia 1+; Platelet Estimate ADEQ; White Blood Cell Scan OK (OK)
[2021-01-14 00:11] LABS: Calcium Oxalate Crystals- Ur FEW (NONE SEEN); Urine Bacteria 20-50 /HPF (<20); Urine RBC NONE SEEN /HPF (NONE SEEN)
[2021-01-14 00:34] VITALS: TEMP 98.4; O2SAT 98
[2021-01-14 00:38] VITALS: BP 112/78
--- NOTE | 2021-01-14 08:30 | RAD REPORT ---
EXAM DESCRIPTION: US - Abdomen Exam Limited - 01/13/2021 10:01 pm CLINICAL HISTORY: ABD PAIN COMPARISON: Abdomen Exam Limited dated 08/16/2019 FINDINGS: The gallbladder demonstrates multiple shadowing gallstones. No pericholecystic fluid or ga llbladder wall thickening. The common bile duct is normal measuring 2 mm.. The liver demonstrates no findings of intrahepatic biliary dilatation. IMPRESSION: Cholelithiasis.
== END 2021-01-13 23:39 | disposition home or self-care (01) ==
LOC: ER 21:08
DX: K80.20 Calculus of gallbladder without cholecystitis without obstruction (principal); K80.50 Calculus of bile duct without cholangitis or cholecystitis without obstruction
CPT/HCPCS: 36415; 76705; 80048; 80076; 81003; 81015; 81025; 83690; 85025; 87086; 87088; 96374; 96375; 99284; J2405

== ENCOUNTER 2021-02-16 23:36 | Emergency (ER) | payer SELFPAY ==
[2021-02-17 00:43] LABS: Urine Blood Negative (Negative); Urine Glucose Negative (Negative); Urine Protein Negative (Negative); Urine Specific Gravity >=1.030 (1.005-1.030); Urine pH 6.5 (5.0-7.0)
[2021-02-17] MEDS ORDERED: ONDANSETRON 4 MG/2 ML VIAL ONE (00:47)
[2021-02-17] MEDS ORDERED: NA CHLORIDE 0.9% 1,000 ML ONE (00:48)
[2021-02-17 01:15] LABS: Absolute Lymphocytes (CBC) 2.4 K/uL (0.7-4.9); Basophils % 0.4 % (0-1.3); Hematocrit 35.3 % (36.0-45.0); MPV 8.3 fL (7.6-11.3); RBC Red Blood Cell Count 5.18 M/uL (3.86-4.86)
[2021-02-17 01:21] LABS: ALT/SGPT 29 U/L (12-78); AST/SGOT 14 U/L (15-37); Albumin 3.5 g/dL (3.4-5.0); Alkaline Phosphatase 75 U/L (45-117); BUN Blood Urea Nitrogen 12 mg/dL (7-18); Bicarbonate 23 mmol/L (21-32); Bilirubin Direct < 0.1 mg/dL (0-0.2); Bilirubin Total 0.2 mg/dL (0.2-1.0); Glucose Level 102 mg/dL (74-106); Lipase 213 U/L (73-393); Potassium 3.9 mmol/L (3.5-5.1); Protein, Total 8.4 g/dL (6.4-8.2); Sodium Level 142 mmol/L (136-145)
[2021-02-17 01:22] LABS: Urine Specific Gravity/Preg >1.030 (1.005-1.030)
[2021-02-17] MEDS ORDERED: LIDOCAINE VISCOUS 2% SOLN 15 ML UDC ONE (01:49)
[2021-02-17] MEDS ORDERED: MAGNES/ALUMIN/SIMET 30ML UCUP ONE (01:49)
[2021-02-17 01:55] LABS: Blood Morphology Comment NOTED (NOT SEEN); Platelet Estimate ADEQ; White Blood Cell Scan OK (OK)
--- NOTE | 2021-02-17 02:47 | EDPHYS ---
Physician Documentation [facility] Name: Cher Ragland Age: 25 yrs Sex: Female : 1995 Arrival Date: 02/16/2021 Time: 23:39 Bed 13 Private MD: ED Physician Champ Sampson HPI: 02/17 02:38 This 25 yrs old Black Female presents to ER via Ambulatory with complaints of Abdominal tw4 Pain, Nausea. 02:38 The patient presents to the emergency department with nausea, that is moderate. Onset: tw4 The symptoms/episode began/occurred today. Possible causes: unknown. The symptoms are aggravated by nothing. The symptoms are alleviated by nothing. Severity of symptoms: At their worst the symptoms were moderate in the emergency department the symptoms are unchanged. The patient has not experienced similar symptoms in the past. 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 - Social history:: Smoking status: Patient denies any tobacco usage or history of. Patient/guardian denies using alcohol, street drugs. ROS: 02:38 Constitutional: Negative for fever, chills, and weight loss, Eyes: Negative for injury, tw4 pain, redness, and discharge, Cardiovascular: Negative for chest pain, palpitations, and edema, Respiratory: Negative for shortness of breath, cough, wheezing, and pleuritic chest pain, Abdomen/GI: Negative for abdominal pain, nausea, vomiting, diarrhea, and constipation, Back: Negative for injury and pain, MS/Extremity: Negative for injury and deformity, Skin: Negative for injury, rash, and discoloration, Neuro: Negative for headache, weakness, numbness, tingling, and seizure, Psych: Negative for depression, anxiety, suicide ideation, homicidal ideation, and hallucinations. 02:38 Abdomen/GI: Positive for abdominal pain, nausea, Negative for nausea and vomiting, nausea, vomiting, and diarrhea, vomiting, diarrhea, constipation, abdominal cramps, abdominal distension, anorexia, dysphagia, hematemesis, black/tarry stool, rectal pain, rectal bleeding, bowel incontinence, flatulence. Exam: 02:38 Constitutional: This is a well developed, well nourished patient who is awake, alert, tw4 and in no acute distress. Head/Face: Normocephalic, atraumatic. Chest/axilla: Normal chest wall appearance and motion. Nontender with no deformity. No lesions are appreciated. Cardiovascular: Regular rate and rhythm with a normal S1 and S2. No gallops, murmurs, or rubs. Normal PMI, no JVD. No pulse deficits. Respiratory: Lungs have equal breath sounds bilaterally, clear to auscultation and percussion. No rales, rhonchi or wheezes noted. No increased work of breathing, no retractions or nasal flaring. Back: No spinal tenderness. No costovertebral tenderness. Full range of motion. Skin: Warm, dry with normal turgor. Normal color with no rashes, no lesions, and no evidence of cellulitis. MS/ Extremity: Pulses equal, no cyanosis. Neurovascular intact. Full, normal range of motion. Neuro: Awake and alert, GCS 15, oriented to person, place, time, and situation. Cranial nerves II-XII grossly intact. Motor strength 5/5 in all extremities. Sensory grossly intact. Cerebellar exam normal. Normal gait. 02:38 Abdomen/GI: Inspection: abdomen appears normal, Bowel sounds: diminished, Palpation: moderate abdominal tenderness, in the epigastric area. Vital Signs: 00:13 BP 108 / 75; Pulse 77; Resp 16 S; Temp 98.1(TE); Pulse Ox 99% on R/A; Weight 83.91 kg bb (R); Height 5 ft. 2 in. (157.48 cm) (R); Pain 8/10; 01:27 BP 109 / 63; Pulse 83; Resp 16 S; Pulse Ox 100% on R/A; ad5 00:13 Body Mass Index 33.84 (83.91 kg, 157.48 cm) bb MDM: 00:23 Patient medically screened. tw4 02:38 Differential diagnosis: Nonspecific abd pain. Data reviewed: vital signs, nurses notes. tw4 Data interpreted: Pulse oximetry: Interpretation: normal. Counseling: I had a detailed discussion with the patient and/or guardian regarding: the historical points, exam findings, and any diagnostic results supporting the discharge/admit diagnosis. Medication response: Zofran markedly relieved the patient's nausea. Response to treatment: and as a result, I will discharge patient. Special discussion: I discussed with the patient/guardian in detail that at this point there is no indication for admission to the hospital. It is understood, however, that if the symptoms persist or worsen the patient needs to return immediately for re-evaluation. 02/17 00:08 Order name: Basic Metabolic Panel; Complete Time: 02:32 02/17 02:37 Interpretation: Normal except: CL 111. 02/17 00:08 Order name: CBC with Diff; Complete Time: 02:32 02/17 02:37 Interpretation: Normal except: RBC 5.18; HGB 10.8; HCT 35.3; MCV 68.2; MCH 20.9; MCHC tw4 30.6. 02/17 00:08 Order name: Hepatic Function; Complete Time: 02:32 02/17 02:37 Interpretation: Normal except: A/G 0.7; GLOB 4.9; TP 8.4; AST 14. 02/17 00:08 Order name: Lipase; Complete Time: 02:32 02/17 00:43 Order name: Urine Dipstick-Ancillary; Complete Time: 02:32 EDMS 02/17 00:43 Order name: Urine --Ancillary (enter results) il5 02/17 00:08 Order name: IV Saline Lock; Complete Time: 00:45 02/17 00:08 Order name: Labs collected and sent; Complete Time: 00:45 02/17 00:08 Order name: Urine Dipstick-Ancillary (obtain specimen) 4 02/17 00:44 Order name: Urine --Ancillary; Complete Time: 02:32 EDMS 02/17 02:37 Interpretation: Normal except: USPGRP >1.030. 02/17 01:17 Order name: CBC Smear Scan; Complete Time: 02:32 EDMS 02/17 00:08 Order name: Urine Test (obtain specimen) Administered Medications: 00:45 Drug: Zofran (Ondansetron) 4 mg Route: IVP; Site: left antecubital; ad5 01:17 Follow up: Response: No adverse reaction ad5 00:45 Drug: NS 0.9% 1000 ml Route: IV; Rate: 1 bolus; Site: left antecubital; ad5 03:07 Follow up: IV Status: Completed infusion; IV Intake: 1000ml ad5 01:32 Drug: GI Cocktail without - (Maalox Suspension 30 ml, Lidocaine Liquid 2 % 15 ad5 ml) Route: PO; 02:31 Follow up: Response: No adverse reaction ad5 Disposition: 02/17/21 02:46 Discharged to Home. Impression: Nausea. - Condition is Stable. - Discharge Instructions: Nausea, Adult, [id number]. - Prescriptions for Zofran 4 mg Oral Tablet - take 1 tablet by ORAL route every 12 hours As needed; 6 tablet. - Medication Reconciliation Form, Thank You Letter, Antibiotic Education, Prescription Opioid Use form. - Follow up: Private Physician; When: Upon discharge from the Emergency Department; Reason: Recheck today's complaints, Continuance of care, Re-evaluation by your physician. - Problem is new. - Symptoms have improved. Signatures: Dispatcher [employer] EDBethany Ruiz, RN RN Champ Lozano MD MD tw4 Waldo Silva ad5 Corrections: (The following items were deleted from the chart) 03:08 02:46 02/17/2021 02:46 Discharged to Home. Impression: Nausea. Condition is Stable. ad5 Forms are Medication Reconciliation Form, Thank You Letter, Antibiotic Education, Prescription Opioid Use. Follow up: Private Physician; When: Upon discharge from the Emergency Department; Reason: Recheck today's complaints, Continuance of care, Re-evaluation by your physician. Problem is new. Symptoms have improved. tw4
--- NOTE | 2021-02-17 02:47 | ER ---
Nurse's Notes [facility] Name: Cher Ragland Age: 25 yrs Sex: Female : 1995 Arrival Date: 02/16/2021 Time: 23:39 Bed 13 Private MD: Diagnosis: Nausea Presentation: 02/17 00:13 Chief complaint: Patient states: she is having upper abdominal pain x 3 days with bb nausea, denies vomiting or diarrhea pain is 8/10. States her 2 year old has a "stomach bug". Coronavirus screen: At this time, the client does not indicate any symptoms associated with coronavirus-19. Ebola Screen: No symptoms or risks identified at this time. Initial Sepsis Screen: Does the patient meet any 2 criteria? No. Patient's initial sepsis screen is negative. Does the patient have a suspected source of infection? No. Patient's initial sepsis screen is negative. Risk Assessment: Do you want to hurt yourself or someone else? Patient reports no desire to harm self or others. Onset of symptoms was February 13, 2021. 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 - Social history:: Smoking status: Patient denies any tobacco usage or history of. Patient/guardian denies using alcohol, street drugs. Screenin:45 Abuse screen: Denies threats or abuse. Denies injuries from another. Nutritional ad5 screening: No deficits noted. Tuberculosis screening: No symptoms or risk factors identified. Fall Risk None identified. Assessment: 00:46 General: Appears uncomfortable, Behavior is calm, cooperative, appropriate for age. ad5 Pain: Complains of pain in right upper quadrant Pain radiates to epigastric area and left upper quadrant. Neuro: No deficits noted. Level of Consciousness is awake, alert, obeys commands, Oriented to person, place, time, situation, Appropriate for age. Cardiovascular: No deficits noted. Capillary refill < 3 seconds Patient's skin is warm and dry. Pulses are all present. Respiratory: No deficits noted. Airway is patent Respiratory effort is even, unlabored, Respiratory pattern is regular, symmetrical. GI: Abdomen is flat, Bowel sounds present X 4 quads. Abdomen is tender to palpation in right upper quadrant Reports upper abdominal pain, constipation, nausea. : No deficits noted. No signs and/or symptoms were reported regarding the genitourinary system. Derm: No deficits noted. No signs and/or symptoms reported regarding the dermatologic system. Skin is pink, warm \\T\\ dry. 01:27 Reassessment: Patient appears in no apparent distress at this time. Patient and/or ad5 family updated on plan of care and expected duration. Pain level reassessed. Patient is alert, oriented x 3, equal unlabored respirations, skin warm/dry/pink. 02:30 Reassessment: Patient appears in no apparent distress at this time. Patient and/or ad5 family updated on plan of care and expected duration. Pain level reassessed. Patient is alert, oriented x 3, equal unlabored respirations, skin warm/dry/pink. Vital Signs: 00:13 BP 108 / 75; Pulse 77; Resp 16 S; Temp 98.1(TE); Pulse Ox 99% on R/A; Weight 83.91 kg bb (R); Height 5 ft. 2 in. (157.48 cm) (R); Pain 8/10; 01:27 BP 109 / 63; Pulse 83; Resp 16 S; Pulse Ox 100% on R/A; ad5 00:13 Body Mass Index 33.84 (83.91 kg, 157.48 cm) ED Course: 02/16 23:39 Patient arrived in ED. cf2 02/17 00:08 Champ Sampson MD is Attending Physician. tw4 00:14 Triage completed. bb 00:17 Arm band placed on Patient placed in an exam room, on a stretcher, on pulse oximetry. bb 00:25 Waldo Silva is Primary Nurse. ad5 00:45 No provider procedures requiring assistance completed. Initial lab(s) drawn, by me, ad5 sent to lab. Inserted saline lock: 20 gauge in left antecubital area, using aseptic technique. Blood collected. 00:46 Patient has correct armband on for positive identification. Bed in low position. Call ad5 light in reach. Side rails up X 1. Pulse ox on. NIBP on. Door closed. Noise minimized. Warm blanket given. 03:08 IV discontinued, intact, bleeding controlled, No redness/swelling at site. Pressure ad5 dressing applied. Administered Medications: 00:45 Drug: Zofran (Ondansetron) 4 mg Route: IVP; Site: left antecubital; ad5 01:17 Follow up: Response: No adverse reaction ad5 00:45 Drug: NS 0.9% 1000 ml Route: IV; Rate: 1 bolus; Site: left antecubital; ad5 03:07 Follow up: IV Status: Completed infusion; IV Intake: 1000ml ad5 01:32 Drug: GI Cocktail without - (Maalox Suspension 30 ml, Lidocaine Liquid 2 % 15 ad5 ml) Route: PO; 02:31 Follow up: Response: No adverse reaction ad5 Intake: 03:07 IV: 1000ml; Total: 1000ml. ad5 Outcome: 02:46 Discharge ordered by twArslan 03:07 Discharged to home ambulatory. ad5 03:07 Condition: stable 03:07 Discharge instructions given to patient, Instructed on discharge instructions, follow up and referral plans. medication usage, Demonstrated understanding of instructions, follow-up care, medications, Prescriptions given X 1. 03:08 Patient left the ED. ad5 Signatures: Bethany Hagen RN RN Champ Lozano MD MD tw4 Dima Wheeler 2 Waldo Silva ad5
[2021-02-17 03:18] VITALS: TEMP 98.1
[2021-02-17 03:20] VITALS: BP 109/63; O2SAT 100
== END 2021-02-17 03:08 | disposition home or self-care (01) ==
LOC: ER 23:36
DX: R11.0 Nausea (principal)
CPT/HCPCS: 36415; 80048; 80076; 81003; 81025; 83690; 85025; J2405; J7030

== ENCOUNTER 2021-04-13 05:51 | Emergency (ER) | payer SELFPAY ==
--- OUTSIDE RECORDS SUMMARY | 2021-04-13 05:54 | XMS REPORT | Continuity of Care Document ---
:1995 Author Organization [facility] t Address [address] [place] [address] Care Team Providers Name Role Phone Yancy_Carrie, Santiago Primary Care Physician Ortiz CASTILLO, Cam Attending Clinician Doctor Unassigned, Name Attending Clinician Unavailable Problems Condition Condition Condition Status Onset Resolution Last Treating Co mments Source Name Details Category Date Date Treatment Clinician Date No known No known Disease Metho di active active st problems problems Hospit a l Allergies, Adverse Reactions, Alerts This patient has no known allergies or adverse reactions. Social History Social Habit Start Date Stop Date Quantity Comments Source Tobacco use and 2016-06-29 2016-06-29 Never used [facility] exposure 00:00:00 00:00:00 Hospital Alcohol intake 2016-06-29 2016-06-29 Current drinker [facility] dist 00:00:00 00:00:00 of alcohol Hospital (finding) Alcohol Comment 2016-06-18 2016-06-18 rarely [facility] 00:00:00 00:00:00 Hospital Sex Assigned At [birth year] [facility] 00:00:00 00:00:00 Hospital Smoking Status Start Date Stop Date Source Never smoker [facility] Medications Ordered Filled Start Stop Current Ordering Indication Dosage Frequency Signature Comments Components Source Medication Medication Date Date Medication? Clinician (SIG) Name Name naproxen 2015-09 Yes 220mg Take 220 Meth shane sodium 0-[address] (ALEVE) 220 17:49: mouth as [facility] sp[facility] MG tablet 09 needed for l mild pain. etonogestre 2015- Yes by Method i l 68 mg 0-[address] implant 17:49: route [facility]osp[facility] 09 once. l Right arm implanted in November Procedures This patient has no known procedures. Plan of Care Planned Activity Planned Date Details Comments Source Future Scheduled Test COVID-19 VACCINE (1) [facility] [code = COVID-19 VACCINE (1)] Future Scheduled Test Screening for [facility] malignant neoplasm of cervix (procedure) [code = 871792976] Future Scheduled Test INFLUENZA VACCINE [facility] [code = INFLUENZA VACCINE] Encounters Start End Encounter Admission Attending Care Care Encounter Source Date/Time Date/Time Type Type Clinicians Facility Department ID 2021-01-23 2021-01-23 Telephone Luzmaria Alcantar [id number] 00:00:00 00:00:[address] [facility] [id number] [place] [id number] Rodney [id number] [address] 2020-12-18 2020-12-18 Office Luzmaria Alcantar [id number] 14:03:40 15:09:53 [address] [facility] [id number] [place] [id number] Profelizabethio [id number] [address] 2020-12-18 2020-12-18 Orders Doctor YASMIN [id number] 00:00:00 00:00:00 Only Unassigned, COLLEEN [id number] [place] [facility] [id number] Results This patient has no known results.
--- NOTE | 2021-04-13 07:07 | ER ---
Nurse's Notes [facility] Name: Cher Ragland Age: 25 yrs Sex: Female : 1995 Arrival Date: 04/13/2021 Time: 05:55 Bed 19 Private MD: Diagnosis: ED Course: 04/13 05:55 Patient arrived in ED. bp1 06:22 Jan Araiza [facility] is [facility]. jr8 06:22 Jerardo Alcantar MD is Attending Physician. jr8 07:07 Blair Sánchez MD is Attending Physician. rn Administered Medications: No medications were administered Outcome: 07:07 Patient left the ED. bs2 Signatures: Blair Sánchez MD MD rn Roszak, Josh, PA PA jr8 Argelia [facility] Rosangela Echeverria, RN RN bs2
== END 2021-04-13 07:07 | disposition left against medical advice (07) ==
LOC: ER 05:51
DX: Z02.9 Encounter for administrative examinations, unspecified (principal)

== ENCOUNTER 2022-01-14 01:43 | Emergency (ER) | payer SELFPAY ==
--- OUTSIDE RECORDS SUMMARY | 2022-01-14 01:47 | XMS REPORT | Continuity of Care Document ---
:1995 Author Organization [facility] [place] t Address [address] [place] [address] Care Team Providers Name Role Phone Yancy_Carrie, A Primary Care Physician Roma REDDY Attending Clinician Unavailable SID LOVING Attending Clinician Unavailable COLT ANTON Attending Clinician Unavailable HERNANDEZ Attending Clinician Unavailable Colt Anton MD Attending Clinician Doctor Unassigned, Name Attending Clinician Unavailable Solomon HIDALGO Attending Clinician Unavailable Magno SIMPSON Attending Clinician Unknown Attending Clinician Unavailable Santiago Moreau Attending Clinician Payers Payer Name Policy Type Policy Number Effective Date Expiration Date Sumeet cha [id number] 2021 00:00:00 [facility] [id number] 2019 00:00:00 Advance Directives Directive Decision Effective Termination Comments Source Date Date Healthcare Agents on N/A [facility] FileNameRecastleview hospitalipHealthcare [facility] Agent Medical [facility] Care [phone] (Mobile) [email or web address] Problems Condition Condition Condition Status Onset Resolution Last Treating Co mments Source Name Details Category Date Date Treatment Clinician Date Nexplanon Nexplanon Disease Active Uni vers in place in place 4-15 ity of 00:00: [address] Post term Post term Disease Active 2017-09 Uni vers 2-19 ity of over 40 over 40 00:00: [place] weeks weeks 00 Medical Branch Obesity Obesity Disease Active Univers (BMI (BMI 8-18 ity of 30-39.9) 30-39.9) 00:00: [place] [facility] Alpha Alpha Disease Active Univers thalassemi thalassemi 9-05 it y of a a 00:00: [address] No known No known Disease Metho di active active st problems problems Hospit a l Allergies, Adverse Reactions, Alerts Allergy Allergy Status Severity Reaction(s) Onset Inactive Treating Comm ents Source Name Type Date Date Clinician NO KNOWN Drug Active Univers ALLERGIE Class ity of S [facility] Social History Social Habit Start Date Stop Date Quantity Comments Source Exposure to Not sure [facility] SARS-CoV-2 [facility] (event) [place] Tobacco use and 2020-12-18 2020-12-18 Never used Universit y of exposure 00:00:00 00:00:00 [facility] Alcohol intake 2020-12-18 2020-12-18 Current [facility] 00:00:00 00:00:00 non-drinker of [facility] alcohol Branch (finding) Alcohol Comment 2016-06-18 2016-06-18 [facility] 00:00:00 00:00:00 Sex Ass[birth year] At [birth year] Universit y of 00:00:00 00:00:00 [facility] Smoking Status Start Date Stop Date Source Never smoker [facility] Medications Ordered Filled Start Stop Current Ordering Indication Dosage Frequency Signature Comments Components Source Medication Medication Date Date Medication? Clinician (SIG) Name Name etonogestre 2020- No [id number] 68mg Univers L 12-18 ity of (NEXPLANON) 21:30: 20:26 [place] implant 68 00 :00 Medical Branch etonogestre 2020- No [id number] 68mg 68 mg, Univers L 12-18 Subdermal, ity of (NEXPLANON) 21:30: 20:26 ONCE NOW, [place] implant 68 00 :00 1 dose, Medica l mg [place] Branch 12/18/20 at 1630, Routine
Use approved by: PICTURE COPYIST etonogestre 2020- No [id number] 68mg Univers L 12-18-15 ity of (NEXPLANON) 21:30: 20:26 [place] implant 68 00 :00 Medical mg Branch etonogestre 2020- No [id number] 68mg 68 mg, Univers L 12-18-15 Subdermal, ity of (NEXPLANON) 21:30: 20:26 ONCE NOW, [place] implant 68 00 :00 1 dose, Medica l mg [place] Branch 12/18/20 at 1630, Routine
Use approved by: PICTURE COPYIST acetaminoph 2020- No 650mg Take 650 Univers en 4-14 04-14 mg by ity of (TYLENOL) 21:48: 00:00 mouth [place] 325 mg 03 :00 every 6 Medical tablet (six) Branch hours as needed. acetaminoph 2020- No 650mg Take 650 Univers en 4-14 04-14 mg by ity of (TYLENOL) 21:48: 00:00 mouth [place] 325 mg 03 :00 every 6 Medical tablet (six) Branch hours as needed. citalopram Yes 40mg Take 40 mg U nivers (CELEXA) 40 4-14 by mouth ity of mg tablet 21:07: daily. [address] citalopram Yes 40mg Take 40 mg U nivers (CELEXA) 40 4-14 by mouth ity of mg tablet 21:07: daily. [address] citalopram Yes 40mg Take 40 mg U nivers (CELEXA) 40 4-14 by mouth ity of mg tablet 21:07: daily. [address] citalopram Yes 40mg Take 40 mg U nivers (CELEXA) 40 4-14 by mouth ity of mg tablet 21:07: daily. [address] citalopram Yes 40mg Take 40 mg U nivers (CELEXA) 40 4-14 by mouth ity of mg tablet 21:07: daily. [address] citalopram Yes 40mg Take 40 mg U nivers (CELEXA) 40 4-14 by mouth ity of mg tablet 21:07: daily. [address] acetaminoph Yes 650mg Take 650 U nivers en 1-22 mg by ity of (TYLENOL) 00:10: mouth [place] 325 mg 50 every 6 Medical tablet (six) Branch hours as needed. acetaminoph Yes 650mg Take 650 U nivers en 1-22 mg by ity of (TYLENOL) 00:10: mouth [place] 325 mg 50 every 6 Medical tablet (six) Branch hours as needed. baloxavir 2019- No [id number] 80mg Take 2 Univers marboxiL -25 09- tablets by ity of (XOFLUZA) 00:00: 05:59 mouth [place] 40 mg 00 :00 now for 1 Medical tablet dose. [place] dicyclomine Yes 10mg 10 mg, Univ ers (BENTYL) 8-10 Oral, QID, ity o f capsule 10 21:00: First dose [place] mg 00 on [facility] 04/14/19 at [place] 1600, Until Discontinu ed, Routine iohexol 2018- No 120mL 120 mL, Unive rs (OMNIPAQUE 04-14 Intravenou it y of 350 20:45: 20:26 s, ONCE, 1 [place] BULK-150 00 :00 dose, Sat Medica l mL) 04/14/19 at [place] injection 1545, 120 mL Routine ondansetron 2018- No 4mg 4 mg, Slow Univers (ZOFRAN 04-14 IV Push, ity of (PF)) 20:30: 20:19 ONCE, 1 [place] injection 4 00 :00 dose, Sat Med ical mg 04/14/19 at [place] 1530, Routine morpHINE 2018- No 4mg 4 mg, Slow Un [place] injection 4 04-1410 IV Push, ity of mg 20:00: 19:04 ONCE, 1 [place] 00 :00 dose, [facility] Medical 04/14/19 at [place] 1500, Routine ondansetron 2018- No 4mg 4 mg, Slow Univers (ZOFRAN 04-14 08-10 IV Push, ity of (PF)) 20:00: 19:04 ONCE, 1 [place] injection 4 00 :00 dose, Sat Med ical mg 04/14/19 at Branch 1500, Routine NaCl 0.9% 2018- No 1000mL at 999 Uni vers (NS) bolus 04-14 08-10 mL/hr, ity of infusion 19:00: 21:51 1,000 mL, Joe as 1,000 mL 00 :00 IV Medical Infusion, Branch ONCE, 1 dose, 04/14/19 at 1400, STAT [facility] Yes 10mg Take 1 Univ ers m oxalate 3-29 tablet by ity o f (LEXAPRO) 00:00: mouth [place] 10 mg 00 daily. Medical tablet Branch escitalopra Yes 10mg Take 1 Univ ers m oxalate 3-29 tablet by ity o f (LEXAPRO) 00:00: mouth [place] 10 mg 00 daily. Medical tablet Branch escitalopra Yes 10mg Take 1 Univ ers m oxalate 3-29 tablet by ity o f (LEXAPRO) 00:00: mouth [place] 10 mg 00 daily. Medical tablet Branch escitalopra Yes 10mg Take 1 Univ ers m oxalate 3-29 tablet by ity o f (LEXAPRO) 00:00: mouth [place] 10 mg 00 daily. Medical tablet Branch escitalopra Yes 10mg Take 1 Univ ers m oxalate 3-29 tablet by ity o f (LEXAPRO) 00:00: mouth [place] 10 mg 00 daily. Medical tablet Branch escitalopra 2020- No 10mg Take 1 Uni vers m oxalate 3-29 04-14 tablet by ity of (LEXAPRO) 00:00: 00:00 mouth [place] 10 mg 00 :00 daily. Medical tablet Branch escitalopra 2020- No 10mg Take 1 Uni vers m oxalate 3-29 04-14 tablet by ity of (LEXAPRO) 00:00: 00:00 mouth [place] 10 mg 00 :00 daily. Medical tablet [place] acetaminoph 2017-09 Yes 650mg Take 650 U nivers en 2-22 mg by ity of (TYLENOL) 21:17: mouth [place] 325 mg 59 every 6 Medical tablet (six) Branch hours as needed. acetaminoph 2017-09 Yes 650mg Take 650 U nivers en 2-22 mg by ity of (TYLENOL) 21:17: mouth [place] 325 mg 59 every 6 Medical tablet (six) Branch hours as needed. acetaminoph 2017-09 Yes 650mg Take 650 U nivers en 2-22 mg by ity of (TYLENOL) 21:17: mouth [place] 325 mg 59 every 6 Medical tablet (six) Branch hours as needed. ferrous 2017-09 Yes 325mg Take 1 Univers sulfate 325 2-21 tablet by ity of mg (65 mg 00:00: mouth 2 [place] iron) 00 (two) Medical tablet times Branch daily. ferrous 2017-09 Yes 325mg Take 1 Univers sulfate 325 2-21 tablet by ity of mg (65 mg 00:00: mouth 2 [place] iron) 00 (two) Medical tablet times Branch daily. ferrous 2017-09 Yes 325mg Take 1 Univers sulfate 325 2-21 tablet by ity of mg (65 mg 00:00: mouth 2 [place] iron) 00 (two) Medical tablet times Branch daily. ferrous 2017-09 Yes 325mg Take 1 Univers sulfate 325 2-21 tablet by ity of mg (65 mg 00:00: mouth 2 [place] iron) 00 (two) Medical tablet times Branch daily. ferrous 2017-09 Yes 325mg Take 1 Univers sulfate 325 2-21 tablet by ity of mg (65 mg 00:00: mouth 2 [place] iron) 00 (two) Medical tablet times Branch daily. ferrous 2017-09- No 325mg Take 1 Univer s sulfate 325 2-21 04-14 tablet by it y of mg (65 mg 00:00: 00:00 [place] iron[place] 00 :00 (two) Medical tablet times Branch daily. ferrous 2017-09- No 325mg Take 1 Univer s sulfate 325 2-21 04-14 tablet by it y of mg (65 mg 00:00: 00:00 [place] iron) 00 :00 (two) Medical tablet times Branch daily. foLIC acid 2017-09 Yes 1mg Take 1 Unive rs 1 mg tablet 0-08 tablet by ity of 00:00: mouth [place] 00 daily. Medical Branch foLIC acid 2017-09 Yes 1mg Take 1 Unive rs 1 mg tablet 0-08 tablet by ity of 00:00: mouth [place] 00 daily. Medical Branch foLIC acid 2017-09 Yes 1mg Take 1 Unive rs 1 mg tablet 0-08 tablet by ity of 00:00: mouth [place] 00 daily. [facility] Branch foLIC acid 2017-09 Yes 1mg Take 1 Unive rs 1 mg tablet 0-08 tablet by ity of 00:00: mouth [place] 00 daily. [facility] foLIC acid 2017-09 Yes 1mg Take 1 Unive rs 1 mg tablet 0-08 tablet by ity of 00:00: mouth [place] 00 daily. [facility] foLIC acid 2017-09- No 1mg Take 1 Univ ers 1 mg tablet 0-08 04-14 tablet by it y of 00:00: 00:00 mouth [place] 00 :00 daily. [facility] foLIC acid 2017-09- No 1mg Take 1 Univ ers 1 mg tablet 0-08 04-14 tablet by it y of 00:00: 00:00 mouth [place] 00 :00 daily. [facility] naproxen 2015-09 Yes 220mg Take 220 Meth shane sodium 0-[address] (ALEVE) 220 17:49: mouth as [facility] MG tablet 09 needed for l mild pain. etonogestre 2015-09 Yes by Method i l 68 mg 0-[address] implant 17:49: route [facility] 09 once. l Right arm implanted in November Immunizations Ordered Filled Immunization Date Status Comments [facility] e Immunization Name Name SARS-COV-2 COVID-19 2020-10-31 Completed Unive rsity of PFIZER VACCINE 00:00:00 [facility] [place] [facility] SARS-COV-2 COVID-19 2020-10-31 Completed Unive rsity of PFIZER VACCINE 00:00:00 [facility] [place] [facility] SARS-COV-2 COVID-19 2020-10-31 Completed Unive rsity of PFIZER VACCINE 00:00:00 [facility] [place] [facility] SARS-COV-2 COVID-19 2020-10-31 Completed Unive rsity of PFIZER VACCINE 00:00:00 [facility] [place] [facility] SARS-COV-2 COVID-19 2020-10-31 Completed Unive rsity of PFIZER VACCINE 00:00:00 [facility] [place] [facility] SARS-COV-2 COVID-19 2020-10-31 Completed Unive rsity of PFIZER VACCINE 00:00:00 [facility] [place] [facility] SARS-COV-2 COVID-19 2020-10-31 Completed Unive rsity of PFIZER VACCINE 00:00:00 [facility] [place] [facility] SARS-COV-2 COVID-19 2020-09-30 Completed Unive rsity of PFIZER VACCINE 00:00:00 [facility] [place] [facility] SARS-COV-2 COVID-19 2020-09-30 Completed Unive rsity of PFIZER VACCINE 00:00:00 [facility] [place] [facility] SARS-COV-2 COVID-19 2020-09-30 Completed Unive rsity of PFIZER VACCINE 00:00:00 [facility] [place] [facility] SARS-COV-2 COVID-19 2020-09-30 Completed Unive rsity of PFIZER VACCINE 00:00:00 [facility] [place] [facility] SARS-COV-2 COVID-19 2020-09-30 Completed Unive rsity of PFIZER VACCINE 00:00:00 [facility] [place] [facility] SARS-COV-2 COVID-19 2020-09-30 Completed Unive rsity of PFIZER VACCINE 00:00:00 [facility] [place] [facility] SARS-COV-2 COVID-19 2020-09-30 Completed Unive rsity of PFIZER VACCINE 00:00:00 [facility] [place] [facility] Influenza Virus 2018-06-12 Completed Universit y of Vaccine Quad .5 mL 00:00:00 [place] [facility] IM 6+ MO Branch Influenza Virus 2018-06-12 Completed Universit y of Vaccine [place] .5 mL 00:00:00 [place] Medical IM 6+ MO Branch Influenza Virus 2018-06-12 Completed Universit y of Vaccine [place] .5 mL 00:00:00 [place] Medical IM 6+ MO Branch Influenza Virus 2018-06-12 Completed Universit y of Vaccine [place] .5 mL 00:00:00 [place] Medical IM 6+ MO Branch Influenza Virus 2018-06-12 Completed Universit y of Vaccine [place] .5 mL 00:00:00 [place] Medical IM 6+ MO Branch Influenza Virus 2018-06-12 Completed Universit y of Vaccine [place] .5 mL 00:00:00 [place] Medical IM 6+ MO Branch Influenza Virus 2018-06-12 Completed Universit y of Vaccine [place] .5 mL 00:00:00 [place] Medical IM 6+ MO Branch Influenza Virus 2018-06-12 Completed Universit y of Vaccine [place] .5 mL 00:00:00 [place] Medical IM 6+ MO Branch Influenza Virus 2018-06-12 Completed Universit y of Vaccine [place] .5 mL 00:00:00 [place] Medical IM 6+ MO Branch Influenza Virus 2018-06-12 Completed Universit y of Vaccine [place] .5 mL 00:00:00 [place] Medical IM 6+ MO Branch Influenza Virus 2018-06-12 Completed Universit y of Vaccine [place] .5 mL 00:00:00 [place] [facility] IM 6+ MO Branch Tdap 2018-05-29 Completed University of 00:00:00 [place] [facility] TDAP 2018-05-29 Completed University of 00:00:00 [place] [facility] TDAP 2018-05-29 Completed University of 00:00:00 [place] [facility] TDAP 2018-05-29 Completed University of 00:00:00 [place] [facility] TDAP 2018-05-29 Completed University of 00:00:00 [place] [facility] TDAP 2018-05-29 Completed University of 00:00:00 [place] [facility] TDAP 2018-05-29 Completed University of 00:00:00 [place] [facility] TDAP 2018-05-29 Completed University of 00:00:00 [place] [facility] Tdap 2018-05-29 Completed University of 00:00:00 [place] [facility] Tdap 2018-05-29 Completed University of 00:00:00 [place] [facility] Tdap 2018-05-29 Completed University of 00:00:00 [facility] Vital Signs Vital Name Observation Time Observation Value Comments Source Systolic blood 2020-12-18 19:40:00 105 mm[Hg] Univer sity of pressure [facility] Diastolic blood 2020-12-18 19:40:00 72 mm[Hg] Unive rsity of [facility] Heart rate 2020-12-18 19:40:00 72 /min [facility] Body temperature 2020-12-18 19:40:00 36.89 Lakshmi [facility] Respiratory rate 2020-12-18 19:40:00 18 /min [facility] Body height 2020-12-18 19:40:00 157.5 cm [facility] Body weight 2020-12-18 19:40:00 86.546 kg [facility] BMI 2020-12-18 19:40:00 34.90 kg/m2 [facility] Systolic blood 2020-12-18 19:40:00 105 mm[Hg] Univer sity of pressure [facility] Diastolic blood 2020-12-18 19:40:00 72 mm[Hg] Unive rsity of pressure [place] [facility] Heart rate 2020-12-18 19:40:00 72 /min Universi ty of [place] [facility] Body temperature 2020-12-18 19:40:00 36.89 Lakshmi Univ ersity of [place] [facility] Respiratory rate 2020-12-18 19:40:00 18 /min Univ ersity of [place] [facility] Body height 2020-12-18 19:40:00 157.5 cm Universi ty of [place] [facility] Body weight 2020-12-18 19:40:00 86.546 kg Universi ty of [place] [facility] BMI 2020-12-18 19:40:00 34.90 kg/m2 Universi ty of [place] [facility] Systolic blood 2020-12-17 21:04:00 111 mm[Hg] Univer sity of pressure [place] [facility] Diastolic blood 2020-12-17 21:04:00 78 mm[Hg] Unive rsity of pressure [place] [facility] Heart rate 2020-12-17 21:04:00 96 /min Universi ty of [place] [facility] Body temperature 2020-12-17 21:04:00 36.72 Lakshmi Univ ersity of [place] [facility] Respiratory rate 2020-12-17 21:04:00 16 /min Univ ersity of [place] [facility] Body height 2020-12-17 21:04:00 157.5 cm Universi ty of [place] [facility] Body weight 2020-12-17 21:04:00 88.089 kg Universi ty of [place] [facility] BMI 2020-12-17 21:04:00 35.52 kg/m2 Universi ty of [place] [facility] Systolic blood 2019-09-26 00:09:00 123 mm[Hg] Univer sity of pressure [place] [facility] Diastolic blood 2019-09-26 00:09:00 81 mm[Hg] Unive rsity of pressure [place] [facility] Heart rate 2019-09-26 00:09:00 102 /min Universi ty of [place] [facility] Body temperature 2019-09-26 00:09:00 37.61 Lakshmi Univ ersity of [place] [facility] Respiratory rate 2019-09-26 00:09:00 18 /min Univ ersity of [place] [facility] Body height 2019-09-26 00:09:00 157.5 cm Universi ty of [place] [facility] Body weight 2019-09-26 00:09:00 84.482 kg [facility] BMI 2019-09-26 00:09:00 34.07 kg/m2 [facility] Oxygen saturation in 2019-09-26 00:09:00 100 /min [facility] Arterial blood by [facility] Pulse oximetry Branch Systolic blood 2019-04-14 21:00:00 125 mm[Hg] Univer sity of pressure [facility] Diastolic blood 2019-04-14 21:00:00 72 mm[Hg] Unive rsity of pressure [facility] Heart rate 2019-04-14 21:00:00 98 /min [facility] Respiratory rate 2019-04-14 21:00:00 18 /min [facility] Oxygen saturation in 2019-04-14 21:00:00 99 /min [facility] Arterial blood by [facility] Pulse oximetry Branch Body temperature 2019-04-14 18:37:00 37 Lakshmi [facility] Body height 2019-04-14 18:37:00 157.5 cm [facility] Body weight 2019-04-14 18:37:00 83.915 kg [facility] BMI 2019-04-14 18:37:00 33.84 kg/m2 [facility] Procedures Procedure Date / Time Performing Clinician Source Performed CONSENT FOR 2020-12-18 05:01:00 Doctor Unassigned, No [facility] CONTRACEPTION [facility] POCT TEST 2020-12-17 21:08:00 Elaine Anton [facility] ASSIGNMENT OF BENEFITS 2019-09-25 23:59:43 Doctor Unassigned, No [facility] POCT FLU A AND B 2019-09-25 00:00:00 [facility] ABDOMEN PELVIS W 2019-04-14 20:35:[address] [facility] CONTRAST [facility] LIPASE 2019-04-14 19:03:00 iNshant Davis [facility] COMP. METABOLIC PANEL 2019-04-14 19:03:00 Nishant Davis [facility] ([id number]) [facility] CBC WITH DIFFERENTIAL 2019-04-14 19:03:00 Nishant Davis [facility] URINALYSIS 2019-04-14 19:03:00 Nishant Davis [facility] POCT TEST 2019-04-14 19:02:00 Nishant Davis [facility] CONSENT/REFUSAL FOR 2019-04-14 18:20:32 Doctor Unassigned, No Un [facility] DIAGNOSIS AND TREATMENT Name Medical [place] Plan of Care Planned Activity Planned Date Details Comments Source Future Scheduled Test Screening for [facility] malignant neoplasm of cervix (procedure) [code = 608126755] Future Scheduled Test INFLUENZA VACCINE [facility] [code = INFLUENZA VACCINE] Future Scheduled Test COVID-19 VACCINE (1) [facility] [code = COVID-19 VACCINE (1)] Encounters Start End Encounter Admission Attending Care Care Encounter Source Date/Time Date/Time Type Type Clinicians Facility Department ID 2021-09-17 2021-09-17 Outpatient R AKINSIPE, [facility] [id number] Univers 15:00:00 15:00:00 LUDWIG [id number] [facility] 2021-09-17 2021-09-17 Outpatient R AKINSIPE, [facility] [id number] Univers 15:00:00 15:00:00 LUDWIG it o [facility] 2021-09-04 2021-09-04 Emergency E FABIENNE, [facility] 7502 Memoria 04:08:00 08:55:00 MATILDA [place] [facility] 2021-09-01 2021-09-01 Outpatient R AKINSIPE, [facility] [id number] Univers 13:00:00 13:00:00 LUDWIG [id number] ity o [facility] 2021-07-02 2021-07-02 Outpatient ELAINE ANTON [facility] [id number] Univers 15:15:00 15:15:[id number] [facility] 2021-07-02 2021-07-02 Outpatient R ELAINE ANTON [facility] [id number] Univers 15:15:00 15:15:[address] [facility] 2021-04-202021-04-20 Outpatient R [facility] [id number] Univers 11:40:00 11:40:00 [id number] ity [facility] 2021-04-20 2021-04-20 Outpatient R HERNANDEZ [facility] [id number] Univers 11:40:00 11:40:00 ARGELIA torres o f [facility] 2021-02-11 2021-02-11 Outpatient R DESEAN ELAINE [facility] [id number] Univers 09:00:00 09:00:00 [id number] ity [facility] 2021-02-11 2021-02-11 Outpatient R DESEAN ELAINE [facility] [id number] Univers 09:00:00 09:00:00 ity [facility] 2021-01-23 2021-01-23 Telephone Elaine Anton [facility] [id number] 00:00:00 00:00:00 [place] [id number] [place] [id number] Professio [phone] [address] 2021-01-23 2021-01-23 Telephone Elaine Anton [facility] [id number] [facility] 00:00:00 00:00:00 [place] [id number] i [place] [id number] [place] [phone] Ms dical [address] 2020-12-18 2020-12-18 Office Elaine Anton [facility] [id number] 14:03:40 15:09:53 Visit [place] [id number] [place] [id number] Professio [phone] [address] 2020-12-18 2020-12-18 Office Elaine Anton [facility] [id number] [facility] 14:03:40 15:09:53 Visit [place] [id number] i [place] [id number] [place] [phone] Ms dical [address] 2020-12-18 2020-12-18 Outpatient R ELAINE ANTON [facility] [id number] Univers 13:45:00 13:45:00 [id number] ity of [facility] 2020-12-18 2020-12-18 Outpatient R ELAINE ANTON [facility] [id number] Univers 13:45:00 13:45:00 ity [facility] 2020-12-18 2020-12-18 Orders Doctor YASMIN [id number] 00:00:00 00:00:00 Only Unassigned, [place] [id number] [place] [id number] [facility] [place] 2020-12-18 2020-12-18 Orders Doctor YASMIN [id number] Univers 00:00:00 00:00:00 Only Unassigned, COLLE[place] [id number] ity of [place] [facility] [id number] Joe as [phone] [address] 2020-12-17 2020-12-17 Office Elaine Anton [facility] [id number] Univers 15:43:26 16:47:02 Visit Cam [place] [id number] i ty of [place] [id number] [place] [phone] Ms dical nal [address] [place] [address] 2020-12-17 2020-12-17 Outpatient ELAINE ANTON [facility] [id number] Univers 16:00:00 16:00:00 [id number] ity of [facility] 2020-12-17 2020-12-17 Outpatient R ELAINE ANTON [facility] [id number] Univers 16:00:00 16:00:00 ity [facility] 2020-11-24 2020-11-24 Telephone Elaine Anton [facility] [id number] Univers 00:00:00 00:00:00 [place] [id number] i ty [place] [id number] [place] [phone] Ms dical nal [address] [place] [address] 2020-10-31 2020-10-31 Outpatient R [facility] [id number] Univers 16:20:00 16:20:[id number] [facility] 2020-10-31 2020-10-31 Outpatient R R[facility] [facility] [id number] Univers 16:20:00 16:20:[address] [facility] 2020-10-24 2020-10-24 Outpatient [facility] [id number] [id number]-20 Univers 16:20:00 16:20:[id number] [facility] 2020-10-21 2020-10-21 Outpatient [facility] [id number] 5Q-20 Univers 13:50:00 13:50:[id number] [facility] 2020-09-30 2020-09-30 Outpatient [facility] [id number] 5Q-20 Univers 15:50:00 15:50:[id number] [facility] 2020-09-30 2020-09-30 Outpatient R [facility] [id number] Univers 15:50:00 15:50:[address] [facility] 2019-09-25 2019-09-25 Urgent Ariana Kiran [facility] [id number] Univers 18:00:22 18:15:22 Care Unknown, Attending Health [id number] ity of Surgical [id number] Joe as Specialti [phone] Ms dical es [address] [facility] 2019-09-25 2019-09-25 Orders Doctor YASMIN [id number] Univers 00:00:00 00:00:00 Only Unassigned, COLLEEN [id number] ity of [place] [facility] 4.2.7.2.686 Joe as [phone] [address] 2019-04-14 2019-04-14 Emergency [facility] [id number] Univers 13:29:58 16:53:[address] [id number] i ty of [place] 4.2.7.2.686 [facility] [phone] [facility] [address] 2019-04-14 2019-04-14 Orders Doctor YASMIN [id number] [place] [address] 00:00:00 00:00:00 Only Unassigned, COLLEEN [id number] ity of [place] [facility] 4.2.7.2.686 [facility] [phone] [facility] [address] Results Test Description Test Time Test Comments Results Result Comments Source POCT TEST 2020-12-17 21:08:00 Test Item Value Reference Range Interpretation Comme nts POCT PREG (test code = 1605) Negative On board controls acceptable with C Yes Line (test code = 3574) POCT PREG LOT # (test code = 3575) POCT PREG TEST DATE (test code = 3576) ALVIN (test code = ALVIN) accurate development and interpretation of all internal controls [facility] [id number] 21:08:00 Test Item Value Reference Range Interpretation Comments POCT PREG (test code Negative = 1605) On board controls Yes acceptable with C Line (test code = 3574) POCT PREG LOT # (test code = 3575) POCT PREG TEST DATE (test code = 3576) ALVIN (test code = ALVIN) accurate development and interpretation of all internal controls [facility] FLU A AND B (MOLECULAR)2019-09-26 00:27:00 Test Item Value Reference Range Interpretation Comments POCT INFLUENZA A (test pos Negative - code = 3840) Negative POCT INFLUENZA B (test neg Negative - code = 3841) Negative ALVIN (test code = ALVIN) accurate development and interpretation of all internal controls Lab Interpretation Abnormal (test code = 00245-8) [facility]. METABOLIC PANEL ([id number])2019-04-14 19:57:00 Test Item Value Reference Range Interpretation Comments NA (test code = 142 mmol/L 135-145 6679832610) K (test code = 3.8 mmol/L 3.5-5 9617262805) CL (test code = 105 mmol/L 98-108 6388083055) CO2 TOTAL (test code = 26 mmol/L 23-31 7923597901) AGAP (test code = 2-16 7951992300) BUN (test code = 15 mg/dL 7-23 6371021193) GLUCOSE (test code = 118 mg/dL 70-110 H 1106840234) CREATININE (test code = 0.83 mg/dL 0.5-1.04 4573490351) TOTAL BILI (test code = 0.4 mg/dL 0.1-1.7 7742199327) CALCIUM (test code = 9.0 mg/dL 8.6-10.6 2880949146) T PROTEIN (test code = 7.9 g/dL 6.3-8.2 2199281252) ALBUMIN (test code = 4.3 g/dL 3.5-5 8097175696) ALK PHOS (test code = 72 U/L 34-122 1071766856) ALT(SGPT) (test code = 25 U/L 9-51 6266163522) AST(SGOT) (test code = 29 U/L 13-40 9426135895) eGFR Calculation mL/min/1.73m2 (Non-) (test code = 4937993277) eGFR Calculation mL/min/1.73m2 () (test code = 4690500015) ALVIN (test code = ALVIN) Association of Glomerular Filtration Rate (GFR) and Staging of Kidney Disease*+ + + +| GFR (mL/min/1.73 m2)?| With Kidney Damage?|?Without Kidney Damage+ --------+ --------+ +|?>90?|?S tage one?|? Normal?+ ---------+ ---------+ +|?60-89? |?Stage two?|? Decreased GFR? + --+ --+ ------+|?30-59?|?Stage three?|? Stage three? + --+ --+ ------+|?15-29?|?Stage four? |? Stage four?+ -------+ -------+ +|?<15 (or dialysis)?|?Stage five? |? Stage five?+ -------+ -------+ +*Each stage assumes the associated GFR level has been in effect for at least three months.?Stages 1 to 5, with or without kidney disease, indicate chronic kidney disease.Notes: Determination of stages one and two (with eGFR >59mL/min/1.73 m2) requires estimation of kidney damage for at least three months as defined by structural or functional abnormalities of the kidney, manifested by either:Pathological abnormalities or Markers of kidney damage (including abnormalities in the composition of the blood or urine or abnormalities in imaging tests). Lab Interpretation Abnormal (test code = 53236-0) [facility] Test Item Value Reference Range Interpretation Comments LIPASE (test code = 9244663446) 99 U/L 0-220 Lab Interpretation (test code = Normal 53461-5) [facility] 19:52:00 Test Item Value Reference Range Interpretation Comments APPEARANCE (test code Slightly Cloudy Clear A = 5620065026) COLOR (test code = Yellow Yellow 9369300030) PH (test code = 4.8-8.0 8302665049) SP GRAVITY (test code 1.003-1.030 = 9004047452) GLU U QUAL (test code Negative Negative = 9228769728) BLOOD (test code = Negative Negative 1066022284) KETONES (test code = Negative Negative 1627350676) PROTEIN (test code = Negative Negative 2887-8) UROBILIN (test code = 0.2 mg/dL See_Comment [Auto mated 5030857179) message] The system which generated this result transmit doc reference range : 0-1.0 mg/dL. Th e reference range was not used to interpret this result as normal/abnormal . BILIRUBIN (test code Negative Negative = 2935982581) NITRITE (test code = Negative Negative 8552935347) LEUK LAURA (test code Negative Negative = 4327453973) RBC/HPF (test code = See_Comment [Autom ated 6750242618) message] The system which generated this result transmit doc reference range : 0 - 3 HPF. The reference range was not used to interpret this result as normal/abnormal . WBC/HPF (test code = See_Comment H [Autom ated 3744796156) message] The system which generated this result transmit doc reference range : 0 - 5 HPF. The reference range was not used to interpret this result as normal/abnormal . BACTERIA (test code = Many Negative A 2497252384) MUCOUS (test code = Marked Negative LPF A 6362536669) SQ EPITH (test code = HPF 7210849327) Lab Interpretation Abnormal (test code = 44187-5) [facility] [id number] 19:34:00 Test Item Value Reference Range Interpretation Comments WBC (test code = See_Comment [Automated 6690-2) message] The sy stem which generated this result transmitted reference range : 4.30 - 11.10 10*3/?L. The reference range was not used to interpret this result as normal/abnormal . RBC (test code = See_Comment [Automated 789-8) message] The sy stem which generated this result transmitted reference range : 3.93 - 5.25 10*6/?L. The reference range was not used to interpret this result as normal/abnormal . HGB (test code = 10.2 g/dL 11.6-15 L 718-7) HCT (test code = 35.3 % 35.7-45.2 L 4544-3) MCV (test code = 70.7 fL 80.6-95.5 L 787-2) MCH (test code = 20.4 pg 25.9-32.8 L 785-6) MCHC (test code = 28.9 g/dL 31.6-35.1 L 786-4) RDW-SD (test code = 40.2 fL 39-49.9 64354-5) RDW-CV (test code = 16.0 % 12-15.5 H 788-0) PLT (test code = See_Comment H [Automated 777-3) message] The sy stem which generated this result transmitted reference range : 166 - 358 10*3/ ?L. The reference r layton was not used to interpret this result as normal/abnormal . MPV (test code = 9.3 fL 9.5-12.9 L 21419-4) NRBC/100 WBC (test See_Comment [Automat ed code = 2402572915) message] The system which generated this result transmitted reference range : 0.0 - 10.0 /100 WBCs. The refer ence range was not u sed to interpret th is result as normal/abnormal . NRBC x10^3 (test code <0.01 See_Comment [Auto mated = 2375885197) message] The s ystem which generated this result transmitted reference range : 10*3/?L. The reference range was not used to interpret this result as normal/abnormal . GRAN MAT (NEUT) % 76.1 % (test code = 770-8) IMM GRAN % (test code 0.30 % = 1698907166) LYMPH % (test code = 14.9 % 736-9) MONO % (test code = 8.3 % 5905-5) EOS % (test code = 0.3 % 713-8) BASO % (test code = 0.1 % 706-2) GRAN MAT x10^3(ANC) 5.66 10*3/uL 1.88-7.09 (test code = 2658601780) IMM GRAN x10^3 (test <0.03 0-0.06 code = 5653605218) LYMPH x10^3 (test code 1.11 10*3/uL 1.32-3.29 L = 731-0) MONO x10^3 (test code 0.62 10*3/uL 0.33-0.92 = 742-7) EOS x10^3 (test code = <0.03 0.03-0.39 L 711-2) BASO x10^3 (test code <0.03 0.01-0.07 = 704-7) Lab Interpretation Abnormal (test code = 04667-1) [id number] 19:02:00 Test Item Value Reference Range Interpretation Comments POCT PREG (test code = 1605) negative On board controls acceptable with present C Line (test code = 3574) POCT PREG LOT # (test code = 3575) [id number] POCT PREG TEST DATE (test 2020-09-04 code = 3576) Lab Interpretation (test code = Normal 32018-5) [facility]"
[2022-01-14] MEDS ORDERED: ONDANSETRON 4 MG/2 ML VIAL ONE (02:55)
[2022-01-14] MEDS ORDERED: NA CHLORIDE 0.9% 1,000 ML ONE (02:55)
[2022-01-14] MEDS ORDERED: MORPHINE 2 MG/ML SYR ONE (02:55)
[2022-01-14] MEDS ORDERED: FAMOTIDINE 20 MG/2 ML VIAL IV ONE (02:55)
[2022-01-14 03:10] LABS: Urine Blood Negative (Negative); Urine Glucose Negative (Negative); Urine Protein Negative (Negative); Urine Specific Gravity >=1.030 (1.005-1.030); Urine pH 6.5 (5.0-7.0)
[2022-01-14 03:11] LABS: Absolute Lymphocytes (CBC) 2.5 K/uL (0.7-4.9); Hematocrit 34.7 % (36.0-45.0); Lymphocytes % 31.9 % (15.3-44.8); MPV 7.6 fL (7.6-11.3)
[2022-01-14 03:29] LABS: Albumin 3.3 g/dL (3.4-5.0); Bilirubin Total 0.1 mg/dL (0.2-1.0); Potassium 3.8 mmol/L (3.5-5.1); Protein, Total 7.3 g/dL (6.4-8.2)
--- NOTE | 2022-01-14 03:40 | ER ---
Nurse's Notes [facility] Name: Cher Ragland Age: 26 yrs Sex: Female : 1995 Arrival Date: 01/14/2022 Time: 01:46 Bed 6 Private MD: Diagnosis: Other cholelithiasis without obstruction-Biliary Colic;UTI/ Urinary tract infection, site not specified Presentation: 01/14 02:09 Chief complaint: Patient states: RUQ pain, N/V started yesterday. Coronavirus screen: as6 At this time, the client does not indicate any symptoms associated with coronavirus-19. Ebola Screen: No symptoms or risks identified at this time. Initial Sepsis Screen: Does the patient meet any 2 criteria? No. Patient's initial sepsis screen is negative. Does the patient have a suspected source of infection? No. Patient's initial sepsis screen is negative. Risk Assessment: Do you want to hurt yourself or someone else? Patient reports no desire to harm self or others. Onset of symptoms was January 13, 2022. 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 - Social history:: Smoking status: Patient denies any tobacco usage or history of. - Family history:: not pertinent. Screenin:13 Abuse screen: Denies threats or abuse. Denies injuries from another. Nutritional as6 screening: No deficits noted. Tuberculosis screening: No symptoms or risk factors identified. Fall Risk None identified. Assessment: 02:12 General: Appears in no apparent distress. Behavior is calm, cooperative. Pain: as6 Complains of pain in right upper quadrant. Neuro: Level of Consciousness is awake, alert, obeys commands, Oriented to person, place, time, situation. Cardiovascular: JVD is absent Patient's skin is warm and dry. Respiratory: Respiratory effort is even, unlabored, Respiratory pattern is regular, symmetrical. GI: Bowel sounds present X 4 quads. Abdomen is tender to palpation in right upper quadrant Reports upper abdominal pain, nausea, vomiting. Vital Signs: 02:09 BP 138 / 82; Pulse 80 MON; Resp 18 S; Temp 97.8(TE); Pulse Ox 98% on R/A; Weight 86.18 as6 kg (R); Height 5 ft. 1 in. (154.94 cm) (R); Pain 9/10; 03:35 BP 112 / 54; Pulse 78; Resp 18 S; Pulse Ox 98% on R/A; as6 02:09 Body Mass Index 35.90 (86.18 kg, 154.94 cm) as6 ED Course: 01:46 Patient arrived in ED. kz 01:50 Abhilash Milton MD is Attending Physician. atilio 02:03 Luis Carlos Edouard, JOSY is Primary Nurse. as6 02:11 Triage completed. as6 02:12 Arm band placed on. as6 02:13 Placed in gown. Bed in low position. Call light in reach. Side rails up X2. Pulse ox as6 on. NIBP on. 02:15 Inserted saline lock: 20 gauge in left antecubital area, using aseptic technique. Blood as6 collected. 03:29 Abdomen Exam Limited In Process Unspecified. EDMS 03:38 Steve Hernandez MD is Referral Physician. atilio 03:58 No provider procedures requiring assistance completed. IV discontinued, intact, as6 bleeding controlled, No redness/swelling at site. Pressure dressing applied. Administered Medications: 02:55 Drug: NS 0.9% 1000 ml Route: IV; Rate: 1 bolus; Site: left antecubital; as6 03:53 Follow up: Response: No adverse reaction; IV Status: Completed infusion; IV Intake: as6 1000ml 02:55 Drug: Pepcid (famotidine) 20 mg Route: IVP; Site: left antecubital; as6 03:51 Follow up: Response: No adverse reaction as6 02:55 Drug: Zofran (Ondansetron) 4 mg Route: IVP; Site: left antecubital; as6 03:51 Follow up: Response: No adverse reaction as6 02:55 Drug: morphine 2 mg Route: IVP; Site: left antecubital; as6 03:51 Follow up: Response: No adverse reaction; RASS: Alert and Calm (0) as6 03:51 Drug: Rocephin (cefTRIAXone) 1 grams Route: IV; Rate: per protocol; Site: left as6 antecubital; 03:53 Follow up: Response: No adverse reaction; IV Status: Completed infusion; IV Intake: [id number] Medication: 02:13 VIS not applicable for this client. as6 Intake: 03:53 IV: 1000ml; Total: 1000ml. as6 03:53 IV: 10ml; Total: 1010ml. as6 Outcome: 03:39 Discharge ordered by . atilio 03:58 Discharged to home ambulatory. as6 03:58 Condition: stable 03:58 Discharge instructions given to patient, Instructed on discharge instructions, follow up and referral plans. medication usage, Demonstrated understanding of instructions, follow-up care, medications, Prescriptions given X 4. 03:59 Patient left the ED. as6 Signatures: Dispatcher [employer] EDAbhilash Robin MD MD cha Slawson, Ashby, JOSY RN as6 Marie Molina
--- NOTE | 2022-01-14 03:40 | EDPHYS ---
Physician Documentation [facility] Name: Cher Ragland Age: 26 yrs Sex: Female : 1995 Arrival Date: 01/14/2022 Time: 01:46 Bed 6 Private MD: ED Physician Abhilash Milton HPI: 01/14 02:26 This 26 yrs old Black Female presents to ER via Ambulatory with complaints of Abdominal atilio Pain - Upper right, Vomiting. 02:26 The patient presents to the emergency department with nausea, vomiting, that is atilio continuous. Onset: The symptoms/episode began/occurred yesterday. Possible causes: unknown. The symptoms are aggravated by food , The symptoms are alleviated by nothing. Associated signs and symptoms: The patient has no apparent associated signs or symptoms. Severity of symptoms: At their worst the symptoms were moderate in the emergency department the symptoms are unchanged. The patient has experienced similar episodes in the past, multiple times. 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 - Social history:: Smoking status: Patient denies any tobacco usage or history of. - Family history:: not pertinent. ROS: 02:26 Constitutional: Negative for fever, chills, and weight loss, Eyes: Negative for injury, atilio pain, redness, and discharge, ENT: Negative for injury, pain, and discharge, Neck: Negative for injury, pain, and swelling, Cardiovascular: Negative for chest pain, palpitations, and edema, Respiratory: Negative for shortness of breath, cough, wheezing, and pleuritic chest pain, Back: Negative for injury and pain, : Negative for injury, bleeding, discharge, and swelling, MS/Extremity: Negative for injury and deformity, Skin: Negative for injury, rash, and discoloration, Neuro: Negative for headache, weakness, numbness, tingling, and seizure, Psych: Negative for depression, anxiety, suicide ideation, homicidal ideation, and hallucinations, Allergy/Immunology: Negative for hives, rash, and allergies, Endocrine: Negative for neck swelling, polydipsia, polyuria, polyphagia, and marked weight changes, Hematologic/Lymphatic: Negative for swollen nodes, abnormal bleeding, and unusual bruising. 02:26 Abdomen/GI: Positive for abdominal pain, of the right upper quadrant. Exam: 02:26 Constitutional: This is a well developed, well nourished patient who is awake, alert, atilio and in no acute distress. Head/Face: Normocephalic, atraumatic. Eyes: Pupils equal round and reactive to light, extra-ocular motions intact. Lids and lashes normal. Conjunctiva and sclera are non-icteric and not injected. Cornea within normal limits. Periorbital areas with no swelling, redness, or edema. ENT: Nares patent. No nasal discharge, no septal abnormalities noted. Tympanic membranes are normal and external auditory canals are clear. Oropharynx with no redness, swelling, or masses, exudates, or evidence of obstruction, uvula midline. Mucous membranes moist. Neck: Trachea midline, no thyromegaly or masses palpated, and no cervical lymphadenopathy. Supple, full range of motion without nuchal rigidity, or vertebral point tenderness. No Meningismus. Chest/axilla: Normal chest wall appearance and motion. Nontender with no deformity. No lesions are appreciated. Cardiovascular: Regular rate and rhythm with a normal S1 and S2. No gallops, murmurs, or rubs. Normal PMI, no JVD. No pulse deficits. Respiratory: Lungs have equal breath sounds bilaterally, clear to auscultation and percussion. No rales, rhonchi or wheezes noted. No increased work of breathing, no retractions or nasal flaring. Back: No spinal tenderness. No costovertebral tenderness. Full range of motion. Skin: Warm, dry with normal turgor. Normal color with no rashes, no lesions, and no evidence of cellulitis. MS/ Extremity: Pulses equal, no cyanosis. Neurovascular intact. Full, normal range of motion. Neuro: Awake and alert, GCS 15, oriented to person, place, time, and situation. Cranial nerves II-XII grossly intact. Motor strength 5/5 in all extremities. Sensory grossly intact. Cerebellar exam normal. Normal gait. Psych: Awake, alert, with orientation to person, place and time. Behavior, mood, and affect are within normal limits. 02:26 Abdomen/GI: Inspection: abdomen appears normal, Bowel sounds: active, all quadrants, Palpation: mild abdominal tenderness, in the epigastric area and right upper quadrant, Liver: no appreciated palpable abnormalities, Hernia: not appreciated. Vital Signs: 02:09 BP 138 / 82; Pulse 80 MON; Resp 18 S; Temp 97.8(TE); Pulse Ox 98% on R/A; Weight 86.18 as6 kg (R); Height 5 ft. 1 in. (154.94 cm) (R); Pain 9/10; 03:35 BP 112 / 54; Pulse 78; Resp 18 S; Pulse Ox 98% on R/A; as6 02:09 Body Mass Index 35.90 (86.18 kg, 154.94 cm) as6 MDM: 01:50 Patient medically screened. [facility] 02:28 Differential diagnosis: Nonspecific abd pain, gastritis, cholecystitis, pancreatitis, atilio appendicitis, diverticulitis, viral gastroenteritis, gastroenteritis. Data reviewed: vital signs, nurses notes, lab test result(s), radiologic studies, ultrasound. Data interpreted: Pulse oximetry: on room air is 98 %. Counseling: I had a detailed discussion with the patient and/or guardian regarding: the historical points, exam findings, and any diagnostic results supporting the discharge/admit diagnosis, lab results, radiology results. 01/14 02:26 Order name: CBC with Diff; Complete Time: 03:24 [facility] 01/14 02:26 Order name: CMP; Complete Time: 03:37 [facility] 01/14 02:26 Order name: Lipase; Complete Time: 03:37 [facility] 01/14 03:10 Order name: Urine Dipstick-Ancillary; Complete Time: 03:24 [facility] 01/14 03:38 Order name: Urine Culture [facility] 01/14 02:26 Order name: IV Saline Lock; Complete Time: 02:49 [facility] 01/14 03:29 Order name: Abdomen Exam Limited [facility] 01/14 02:26 Order name: Labs collected and sent; Complete Time: 02:49 [facility] 01/14 02:26 Order name: Urine Dipstick-Ancillary (obtain specimen); Complete Time: 03:01 [facility] 01/14 02:26 Order name: Urine Test (obtain specimen); Complete Time: 03:01 atilio Administered Medications: 02:55 Drug: NS 0.9% 1000 ml Route: IV; Rate: 1 bolus; Site: left antecubital; as6 03:53 Follow up: Response: No adverse reaction; IV Status: Completed infusion; IV Intake: as6 1000ml 02:55 Drug: Pepcid (famotidine) 20 mg Route: IVP; Site: left antecubital; as6 03:51 Follow up: Response: No adverse reaction as6 02:55 Drug: Zofran (Ondansetron) 4 mg Route: IVP; Site: left antecubital; as6 03:51 Follow up: Response: No adverse reaction as6 02:55 Drug: morphine 2 mg Route: IVP; Site: left antecubital; as6 03:51 Follow up: Response: No adverse reaction; RASS: Alert and Calm (0) as6 03:51 Drug: Rocephin (cefTRIAXone) 1 grams Route: IV; Rate: per protocol; Site: left as6 antecubital; 03:53 Follow up: Response: No adverse reaction; IV Status: Completed infusion; IV Intake: [id number] Disposition Summary: 01/14/22 03:39 Discharge Ordered Location: Home atilio Problem: new atilio Symptoms: have improved atilio Condition: Stable atilio Diagnosis - Other cholelithiasis without obstruction - Biliary Colic atilio - UTI/ Urinary tract infection, site not specified atilio Followup: aitlio - With: Private Physician - When: 2 - 3 days - Reason: Recheck today's complaints, Continuance of care, Re-evaluation by your physician Followup: atilio - With: - When: 2 - 3 days - Reason: Recheck today's complaints, Re-evaluation by your physician Discharge Instructions: - Discharge Summary Sheet atilio - Abdominal Pain, Adult atilio - Cholelithiasis atilio - Cholelithiasis, Gswb-tw-Wmha atilio - Urinary Tract Infection, Adult atilio - Urinary Tract Infection, Adult, Gayh-jq-Loee atilio - Abdominal Pain, Adult, Mbft-ke-Rnaw atilio - Cholecystitis, Gxhs-un-Wvwd atilio Forms: - Medication Reconciliation Form atilio - Thank You Letter atilio - Antibiotic Education atilio - Prescription Opioid Use atilio Prescriptions: - Pepcid 20 mg Oral Tablet - take 1 tablet by ORAL route every 12 hours for 10 days; 20 tablet; Refills: 0, atilio Product Selection Permitted - dicyclomine 20 mg Oral Tablet - take 1 tablet by ORAL route 4 times per day; 28 tablet; Refills: 0, Product [facility] Selection Permitted - Cephalexin 500 mg Oral Capsule - take 1 capsule by ORAL route every 6 hours for 7 days; 28 capsule; Refills: 0, [facility] Product Selection Permitted - Zofran 4 mg Oral Tablet - take 1 tablet by ORAL route every 12 hours As needed; 20 tablet; Refills: 0, [facility] Product Selection Permitted Signatures: Dispatcher [employer] Abhilash Mooney MD MD cha Slawson, Ashby RN RN as6 Corrections: (The following items were deleted from the chart) 03:26 02:26 Abdomen Limited+US.RAD.BRZ ordered. GUANACO BLANC
[2022-01-14] MEDS ORDERED: CEFTRIAXONE 1000 MG/VIAL ONE (03:46)
[2022-01-14 05:48] VITALS: TEMP 97.8; O2SAT 98
[2022-01-14 05:49] VITALS: BP 112/54
--- NOTE | 2022-01-14 12:57 | RAD REPORT ---
EXAM DESCRIPTION: US - Abdomen Exam Limited - 01/14/2022 4:33 am CLINICAL HISTORY: 26 years Female ABD PAIN TECHNIQUE: Limited sonographic imaging of the right upper quadrant was performed on 01/14/2022 at 3: 06 AM. Comparison: Prior ultrasound report from 01/14/2021. The images were not available for review. FINDINGS: Sonographic imaging of the right upper quadrant reveals the gallbladder to be well distend ed. There are shadowing intraluminal echoes within the gallbladder lumen consistent with gallstones. There is no evidence of gallbladder wall thickening. The gallbladder wall measures approximately 1.6 mm in diameter. There is no pericholecystic fluid. The common bile duct is normal and measures approx imately 2.5 mm in diameter. No sonographic Valerio sign was detected by the technologist. IMPRESSION: Cholelithiasis without evidence of biliary ductal dilatation, pericholecystic fluid or p ositive sonographic Valerio sign Electronically signed by: Tracey Chao DO 01/14/2022 4:18 AM CDT Due to temporary technical issues with the PACS/Fluency reporting system, reports are being signed by the in house radiologists without review as a courtesy to insure prompt reporting. The interpreting radiologist is fully responsible for the content of the report.
== END 2022-01-14 03:59 | disposition home or self-care (01) ==
LOC: ER 01:43
DX: K80.80 Other cholelithiasis without obstruction (principal); N39.0 Urinary tract infection, site not specified; F32.A Depression, unspecified
CPT/HCPCS: 36415; 76705; 80053; 81003; 83690; 85025; 87086; 87088; 96361; 96374; 96375; 99284; J2270; J2405; J3490; J7030

== ENCOUNTER 2022-04-30 00:35 | Emergency (ER) | payer SELFPAY ==
--- OUTSIDE RECORDS SUMMARY | 2022-04-30 00:40 | XMS REPORT | Continuity of Care Document ---
:1995 Author Organization [facility] t Address [address] [place] [place] [address] Care Team Providers Name Role Phone Yancy_Gumegus Raymon Henderson Primary Care Physician [phone] LUDWIG REDDY Attending Clinician Unavailable MATILDA LOVING Attending Clinician Unavailable ELAINE ANTON Attending Clinician Unavailable ARGELIA NG Attending Clinician Unavailable Elaine Anton MD Attending Clinician Doctor Unassigned, Raven Attending Clinician Unavailable PEDRO HIDALGO Attending Clinician Unavailable Ariana Harrington Attending Clinician Unknown, Attending Attending Clinician Unavailable Nishant Moreau Attending Clinician Payers Payer Name Policy Type Policy Number Effective Date Expiration Date S semaj [id number] 2021 00:00:00 [facility] [id number] 2019 00:00:00 Problems Condition Condition Condition Status Onset Resolution Last Treating Co mments Source Name Details Category Date Date Treatment Clinician Date Nexplanon Nexplanon Disease Active Uni vers in place in place 4-15 ity of 00:00: [address] Post term Post term Disease Active 2017-09 Uni vers 2-19 ity of over 40 over 40 00:00: [place] [facility] Obesity Obesity Disease Active Univers (BMI (BMI 8-18 ity of 30-39.9) 30-39.9) 00:00: [facility] Alpha Alpha Disease Active Univers thalassemi thalassemi 9-05 it y of a a 00:00: [address] No known No known Disease Metho di active active st problems problems Hospit a l Allergies, Adverse Reactions, Alerts Allergy Allergy Status Severity Reaction(s) Onset Inactive Treating Comm ents Source Name Type Date Date Clinician NO KNOWN Drug Active Univers ALLERGIE Class ity of S [facility] Social History Social Habit Start Date Stop Date Quantity Comments Source Exposure to Not sure [facility]-CoV-2 [facility] (event) [place] Tobacco use and 2020-12-18 2020-12-18 Never used Universit y of exposure 00:00:00 00:00:00 [facility] Alcohol intake 2016-06-29 2016-06-29 Current [facility] 00:00:00 00:00:00 of alcohol (finding) Alcohol Comment 2016-06-18 2016-06-18 rarely [facility] 00:00:00 00:00:00 Sex Assigned At [birth year] [facility] 00:00:00 00:00:00 Smoking Status Start Date Stop Date Source Never smoker [facility] Medications Ordered Filled Start Stop Current Ordering Indication Dosage Frequency Signature Comments Components Source Medication Medication Date Date Medication? Clinician (SIG) Name Name etonogestre 2020- No [id number] 68mg Univers L 12-18-15 ity of (NEXPLANON) 21:30: 20:26 [place] implant 68 00 :00 Medical mg Branch etonogestre 2020- No [id number] 68mg 68 mg, Univers L 12-18 Subdermal, ity of (NEXPLANON) 21:30: 20:26 ONCE NOW, [place] implant 68 00 :00 1 dose, Medica l mg [place] Branch 12/18/20 at 1630, Routine
Use approved by: LOG SKIDDER etonogestre No [id number] 68mg Univers L 4-15 04-15 ity of (NEXPLANON) 21:30: 20:26 [place] implant 68 00 :00 Medical mg Branch etonogestre 2020- No [id number] 68mg 68 mg, Univers L 4-15 04-15 Subdermal, ity of (NEXPLANON) 21:30: 20:26 ONCE NOW, [place] implant 68 00 :00 1 dose, Medica l mg [place] [facility] 12/18/20 at 1630, Routine
Use approved by: LOG SKIDDER acetaminoph 2020- No 650mg Take 650 Univers en 4-14 04-14 mg by ity of (TYLENOL) 21:48: 00:00 mouth [place] 325 mg 03 :00 every 6 Medical tablet (six) Branch hours as needed. acetaminoph No 650mg Take 650 Univers en 4-14 04-14 mg by ity of (TYLENOL) 21:48: 00:00 mouth [place] 325 mg 03 :00 every 6 Medical tablet (six) Branch hours as needed. citalopram Yes 40mg Take 40 mg U nivers (CELEXA) 40 4-14 by mouth ity of mg tablet 21:07: daily. [address] citalopram Yes 40mg Take 40 mg U nivers (CELEXA) 40 4-14 by mouth ity of mg tablet 21:07: daily. [address] citalopram Yes 40mg Take 40 mg U nivers (CELEXA) 40 4-14 by mouth ity of mg tablet 21:07: daily. [address] citalopram Yes 40mg Take 40 mg U nivers (CELEXA) 40 4-14 by mouth ity of mg tablet 21:07: daily. [address] citalopram Yes 40mg Take 40 mg U nivers (CELEXA) 40 4-14 by mouth ity of mg tablet 21:07: daily. [address] citalopram Yes 40mg Take 40 mg U nivers (CELEXA) 40 4-14 by mouth ity of mg tablet 21:07: daily. [address] acetaminoph 2019-0 Yes 650mg Take 650 U nivers en 1-22 mg by ity of (TYLENOL) 00:10: mouth [place] 325 mg 50 every 6 Medical tablet (six) Branch hours as needed. acetaminoph 0 Yes 650mg Take 650 U nivers en 1-22 mg by ity of (TYLENOL) 00:10: mouth [place] 325 mg 50 every 6 Medical tablet (six) Branch hours as needed. baloxavir 2020- No [id number] 80mg Take 2 Univers marboxiL 1-21 01-22 tablets by ity of (XOFLUZA) 00:00: 05:59 mouth [place] 40 mg 00 :00 now for 1 Medical tablet dose. [place] dicyclomine Yes 10mg 10 mg, Univ ers (BENTYL) 8-10 Oral, QID, ity o f capsule 10 21:00: First dose [place] mg 00 on [facility] 04/14/19 at Branch 1600, Until Discontinu ed, Routine iohexol 2018- No 120mL 120 mL, Unive rs (OMNIPAQUE 8- 08-10 Intravenou it y of 350 20:45: 20:26 s, ONCE, 1 [place] BULK-150 00 :00 dose, Sat Medica l mL) 04/14/19 at [place] injection 1545, 120 mL Routine ondansetron 2018- No 4mg 4 mg, Slow Univers (ZOFRAN 8-10 08-10 IV Push, ity of (PF)) 20:30: 20:19 ONCE, 1 [place] injection 4 00 :00 dose, Sat Med ical mg 04/14/19 at Branch 1530, Routine morpHINE 2018- No 4mg 4 mg, Slow Un [place] injection 4 8-10 08-10 IV Push, ity of mg 20:00: 19:04 ONCE, 1 [place] 00 :00 dose, [facility] Medical 04/14/19 at Branch 1500, Routine ondansetron 2019- No 4mg 4 mg, Slow Univers (ZOFRAN 8-10 08-10 IV Push, ity of (PF)) 20:00: 19:04 ONCE, 1 [place] injection 4 00 :00 dose, Sat Med ical mg 04/14/19 at Branch 1500, Routine NaCl 0.9% 2018- No 1000mL at 999 Uni vers (NS) bolus 8 08-10 mL/hr, ity of infusion 19:00: 21:51 1,000 mL, Joe as 1,000 mL 00 :00 IV Medical Infusion, Branch ONCE, 1 dose, 04/14/19 at 1400, STAT escitalopra Yes 10mg Take 1 Univ ers [...] mg 00 :00 daily. Medical tablet Branch acetaminoph 2017-09 Yes 650mg Take 650 U [...] Medical tablet times Branch daily. ferrous 2017-09 No 325mg Take 1 Univer s sulfate 325 2-21 04-14 tablet by it y of mg (65 mg 00:00: 00:00 [place] iron) 00 :00 (two) Medical tablet times Branch daily. ferrous 2017-09 No 325mg Take 1 Univer s sulfate [...] [place] 00 daily. Medical Branch foLIC acid 2017-09- No 1mg Take 1 Univ ers 1 mg tablet 0-08 04-14 tablet by it y of 00:00: 00:00 mouth [place] 00 :00 daily. [facility] Branch foLIC acid 2017-09- No 1mg Take 1 Univ ers 1 mg tablet 0-08 04-14 tablet by it y of 00:00: 00:00 mouth [place] 00 :00 daily. [facility] Branch naproxen 2015-09 Yes 220mg Take 220 Meth shane sodium 0-[address] (ALEVE) 220 17:49: mouth as [facility] MG tablet 09 needed for l mild pain. etonogestre 2015-09 Yes by Method i l 68 mg 0-[address] implant 17:49: route [facility]osp[facility] 09 once. l Right arm implanted in November naproxen 2015-09 Yes 220mg Take 220 Meth [place]ane sodium 0-[address] (ALEVE) 220 12:49: mouth as [facility] MG tablet 09 needed for l mild pain. etonogestre 2015-09 Yes by Method i l 68 mg 0-[address] implant 12:49: route [facility]ospita 09 once. l Right arm implanted in November Immunizations Ordered Filled Immunization Date Status Comments [facility] e Immunization Name Name SARS-COV-2 COVID-19 2020-10-31 Completed Unive rsity of PFIZER VACCINE 00:00:00 [facility] SARS-COV-2 COVID-19 2020-10-31 Completed Unive rsity of PFIZER VACCINE 00:00:00 [facility] SARS-COV-2 COVID-19 2020-10-31 Completed Unive rsity of PFIZER VACCINE 00:00:00 [facility] SARS-COV-2 COVID-19 2020-10-31 Completed Unive rsity of PFIZER VACCINE 00:00:00 [facility] SARS-COV-2 COVID-19 2020-10-31 Completed Unive rsity of PFIZER VACCINE 00:00:00 [facility] SARS-COV-2 COVID-19 2020-10-31 Completed Unive rsity of PFIZER VACCINE 00:00:00 [facility] SARS-COV-2 COVID-19 2020-10-31 Completed Unive rsity of PFIZER VACCINE 00:00:00 [facility] SARS-COV-2 COVID-19 2020-09-30 Completed Unive rsity of PFIZER VACCINE 00:00:00 [facility] SARS-COV-2 COVID-19 2020-09-30 Completed Unive rsity of PFIZER VACCINE 00:00:00 [facility] SARS-COV-2 COVID-19 2020-09-30 Completed Unive rsity of PFIZER VACCINE 00:00:00 [facility] SARS-COV-2 COVID-19 2020-09-30 Completed Unive rsity of PFIZER VACCINE 00:00:00 [facility] SARS-COV-2 COVID-19 2020-09-30 Completed Unive rsity of PFIZER VACCINE 00:00:00 [facility] SARS-COV-2 COVID-19 2020-09-30 Completed Unive rsity of PFIZER VACCINE 00:00:00 [facility] SARS-COV-2 COVID-19 2020-09-30 Completed Unive rsity of PFIZER VACCINE 00:00:00 [facility] Influenza Virus 2018-06-12 Completed Universit y of Vaccine Quad .5 mL 00:00:00 [place] [facility] IM 6+ MO Branch Influenza Virus 2018-06-12 Completed Universit y of Vaccine Quad .5 mL 00:00:00 [place] [facility] IM 6+ MO Branch Influenza Virus [...] y of Vaccine Quad .5 mL 00:00:00 [place] [facility] IM 6+ MO Branch Influenza Virus 2018-06-12 Completed Universit y of Vaccine Quad .5 mL 00:00:00 [facility] IM 6+ MO Branch Influenza Virus 2018-06-12 Completed Universit y of Vaccine Quad .5 mL 00:00:00 [place] Medical IM 6+ MO Branch Influenza Virus 2018-06-12 Completed Universit y of Vaccine [place] .5 mL 00:00:00 [facility] IM 6+ MO Branch Tdap 2018-05-29 Completed University of 00:00:00 [place] [facility] TDAP 2018-05-29 Completed University of 00:00:00 [place] [facility] TDAP 2018-05-29 Completed University of 00:00:00 [place] [facility] TDAP 2018-05-29 Completed University of 00:00:00 [place] [facility] TDAP 2018-05-29 Completed University of 00:00:00 [place] [facility] TDAP 2018-05-29 Completed University of 00:00:00 [place] [facility] TDAP 2018-05-29 Completed University of 00:00:00 [place] [facility] TDAP 2018-05-29 Completed University of 00:00:00 [place] [facility] Tdap 2018-05-29 Completed University of 00:00:00 [place] [facility] Tdap 2018-05-29 Completed University of 00:00:00 [place] [facility] Tdap 2018-05-29 Completed University of 00:00:00 [facility] Vital Signs Vital Name Observation Time Observation Value Comments Source Systolic blood 2020-12-18 19:40:00 105 mm[Hg] Univer sity of pressure [facility] Diastolic blood 2020-12-18 19:40:00 72 mm[Hg] Unive rsity of pressure [facility] Heart rate 2020-12-18 19:40:00 72 /min [facility] Body temperature 2020-12-18 19:40:00 36.89 Lakshmi [facility] 2020-12-18 19:40:00 18 /min [facility] Body height 2020-12-18 19:40:00 157.5 cm [facility] Body weight 2020-12-18 19:40:00 86.546 kg [facility] BMI 2020-12-18 19:40:00 34.90 kg/m2 [facility] Systolic blood 2020-12-18 19:40:00 105 mm[Hg] Univer sity of pressure [place] [facility] Diastolic blood 2020-12-18 19:40:00 72 mm[Hg] Unive rsity of pressure [place] [facility] Heart rate 2020-12-18 19:40:00 72 /min Universi ty of [place] [facility] Body temperature 2020-12-18 19:40:00 36.89 Lakshmi Univ ersity of [place] [facility] Respiratory rate 2020-12-18 19:40:00 18 /min Univ ersity of [place] [facility] Body height 2020-12-18 19:40:00 157.5 cm Universi ty of [place] [facility] Body weight 2020-12-18 19:40:00 86.546 kg Universi ty of [place] [facility] BMI 2020-12-18 19:40:00 34.90 kg/m2 Universi ty of [place] [facility] Systolic blood 2020-12-17 21:04:00 111 mm[Hg] Univer sity of pressure [place] [facility] Diastolic blood 2020-12-17 21:04:00 78 mm[Hg] Unive rsity of pressure [place] [facility] Heart rate 2020-12-17 21:04:00 96 /min Universi ty of [place] [facility] Body temperature 2020-12-17 21:04:00 36.72 Lakshmi Univ ersity of [place] [facility] Respiratory rate 2020-12-17 21:04:00 16 /min Univ ersity of [place] [facility] Body height 2020-12-17 21:04:00 157.5 cm Universi ty of [place] [facility] Body weight 2020-12-17 21:04:00 88.089 kg Universi ty of [place] [facility] BMI 2020-12-17 21:04:00 35.52 kg/m2 Universi ty of [place] [facility] Systolic blood 2019-09-26 00:09:00 123 mm[Hg] Univer sity of pressure [place] [facility] Diastolic blood 2019-09-26 00:09:00 81 mm[Hg] Unive rsity of pressure [place] [facility] Heart rate 2019-09-26 00:09:00 102 /min Universi ty [facility] [place] [facility] Body temperature 2019-09-26 00:09:00 37.61 Lakshmi Univ ersity of [place] [facility] Respiratory rate 2019-09-26 00:09:00 18 /min [facility] Body height 2019-09-26 00:09:00 157.5 cm [facility] Body weight 2019-09-26 00:09:00 84.482 kg [facility] BMI 2019-09-26 00:09:00 34.07 kg/m2 [facility] Oxygen saturation in 2019-09-26 00:09:00 100 /min [facility] Arterial blood by [facility] Pulse oximetry Branch Systolic blood 2019-04-14 21:00:00 125 mm[Hg] Univer sity of [facility] Diastolic blood 2019-04-14 21:00:00 72 mm[Hg] Unive rsity [facility] Heart rate 2019-04-14 21:00:00 98 /min [facility] Respiratory rate 2019-04-14 21:00:00 18 /min [facility] Oxygen saturation in 2019-04-14 21:00:00 99 /min [facility] Arterial blood by [facility] Pulse oximetry Branch Body temperature 2019-04-14 18:37:00 37 Lakshmi [facility] Body height 2019-04-14 18:37:00 157.5 cm [facility] Body weight 2019-04-14 18:37:00 83.915 kg [facility] BMI 2019-04-14 18:37:00 33.84 kg/m2 [facility] Procedures Procedure Date / Time Performing Clinician Source Performed CONSENT FOR 2020-12-18 05:01:00 Doctor Unassigned, No [facility] CONTRACEPTION [facility] POCT TEST 2020-12-17 21:08:00 Elaine Anton [facility] ASSIGNMENT OF BENEFITS 2019-09-25 23:59:43 Doctor Unassigned, No [facility] POCT FLU A AND B 2019-09-25 00:00:00 [facility] ABDOMEN PELVIS W 2019-04-14 20:35:48 Nishant Davis [facility] CONTRAST [facility] LIPASE 2019-04-14 19:03:00 Nishant Davis [facility] COMP. METABOLIC PANEL 2019-04-14 19:03:00 Nishant Davis [facility] ([id number]) [facility] CBC WITH DIFFERENTIAL 2019-04-14 19:03:00 Nishant Davis [facility] URINALYSIS 2019-04-14 19:03:00 Nishant Davis [facility] POCT TEST 2019-04-14 19:02:00 Nishant Davis [facility] CONSENT/REFUSAL FOR 2019-04-14 18:20:32 Doctor Unassigned, No Un [facility] DIAGNOSIS AND TREATMENT Name [facility] Plan of Care Planned Activity Planned Date Details Comments Source Future Scheduled 2022-04-23 HE[facility]ITIS B [facility] 07:49:26 VACCINES (1 of 3 - 3-dose series) [code = HEPATITIS B VACCINES (1 of 3 - 3-dose series)] Future Scheduled 2022-04-23 COVID-[address] [facility] Test 07:49:26 (#1) [code = COVID-19 VACCINE (#1)] Future Scheduled 2022-04-23 Screening for [facility] Test 07:49:26 malignant neoplasm of cervix (procedure) [code = 097687585] Future Scheduled 2022-04-23 INFLUENZA [facility]ACCINE [facility] 07:49:26 [code = INFLUENZA VACCINE] Future Scheduled Screening for [facility] Test malignant neoplasm of cervix (procedure) [code = 613593977] Future Scheduled [facility]ZA [facility] [code = INFLUENZA VACCINE] Future Scheduled COVID-[address] [facility] Test (1) [code = COVID-19 VACCINE (1)] Encounters Start End Encounter Admission Attending Care Care Encounter Source Date/Time Date/Time Type Type Clinicians Facility Department ID 2021-09-17 2021-09-17 Outpatient R AKINSIPE, [facility] [id number] Univers 15:00:00 15:00:00 LUDWIG [id number] torres o [facility] 2021-09-17 2021-09-17 Outpatient R AKINSIPE, [facility] [id number] Univers 15:00:00 15:00:00 [facility]04 2021-09-04 Emergency E [facility] 2028 Memoria 04:08:00 08:55:00 MATILDA jabier [facility] 2021-09-01 2021-09-01 Outpatient R BARRY [facility] [id number] Univers 13:00:00 13:00:00 LUDWIG [id number] ity o f [facility] 2021-07-02 2021-07-02 Outpatient ELAINE ANTON [facility] [id number] Univers 15:15:00 15:15:00 [id number] ity [facility] 2021-07-02 2021-07-02 Outpatient R [facility] [id number] Univers 15:15:00 15:15:00 ity [facility] 2021-04-20 2021-04-20 Outpatient R [facility] [id number] Univers 11:40:00 11:40:00 [id number] ity [facility] 2021-04-20 2021-04-20 Outpatient R HERNANDEZ [facility] [id number] Univers 11:40:00 11:40:00 ARGELIA ity o f [facility] 2021-02-11 2021-02-11 Outpatient R [facility] [id number] Univers 09:00:00 09:00:00 [id number] ity [facility] 2021-02-11 2021-02-11 Outpatient R [facility] [id number] Univers 09:00:00 09:00:00 ity [facility] 2021-01-23 2021-01-23 Telephone Desean [facility] [id number] 00:00:00 00:00:00 Cam Ronan [id number] [place] [id number] Professio [phone] nal [address] [place] [address] 2021-01-23 2021-01-23 [facility] [id number] Univers 00:00:00 00:00:00 Cam Ronan [id number] i ty of [id number] [phone] Ne dical [address] 2020-12-18 2020-12-18 Office Elaine Anton [facility] [id number] 14:03:40 15:09:53 Visit Cam Ronan [id number] [place] [id number] Professio [phone] [address] 2020-12-18 2020-12-18 Office Elaine Anotn [facility] [id number] Univers 14:03:40 15:09:53 Visit Cam Ronan [id number] i ty [place] [id number] [phone] [address] 2020-12-18 2020-12-18 Outpatient R DESEAN ELAINE [facility] [id number] Univers 13:45:00 13:45:00 [id number] ity [facility] 2020-12-18 2020-12-18 Outpatient R [facility] [id number] Univers 13:45:00 13:45:00 ity [facility] 2020-12-18 2020-12-18 Orders Doctor YASMIN [id number] 00:00:00 00:00:00 Only Unassigned, COLLEEN [id number] [place] [facility] [id number] [id number] [facility] 2020-12-18 2020-12-18 Orders Doctor YASMIN [id number] Univers 00:00:00 00:00:00 Only Unassigned, COLLEEN [id number] ity of [place] [facility] [id number] Joe as [phone] [address] 2020-12-17 2020-12-17 Office Elaine Anton [facility] [id number] Univers 15:43:26 16:47:02 Visit Cam Ronan [id number] i ty [place] [id number] [id number] Ne dic[address] 2020-12-17 2020-12-17 Outpatient ELAINE ANTON [facility] [id number] Univers 16:00:00 16:00:00 [id number] ity [facility] 2020-12-17 2020-12-17 Outpatient R ELAINE ANTON [facility] [id number] Univers 16:00:00 16:00:00 ity [facility] 2020-11-24 2020-11-24 Telephone Elaine Anton [facility] [id number] Univers 00:00:00 00:00:00 Cam Ronan [id number] i ty [facility] [id number] [place] Professio [phone] Me dical [address] 2020-10-31 2020-10-31 Outpatient R [facility] [id number] Univers 16:20:00 16:20:00 [id number] [facility] 2020-10-31 2020-10-31 Outpatient R ROCKY [facility] [id number] Univers 16:20:00 16:20:00 PEDRO [facility] 2020-10-24 2020-10-24 Outpatient R ROCKY [facility] [id number] Univers 16:20:00 16:20:00 PEDRO [id number] [facility] 2020-10-21 2020-10-21 Outpatient R ROCKY [facility] [id number] Univers 13:50:00 13:50:00 PEDRO [id number] [facility] 2020-09-30 2020-09-30 Outpatient R ROCKY [facility] [id number] Univers 15:50:00 15:50:00 PEDRO [id number] [facility] 2020-09-30 2020-09-30 Outpatient R ROCKY [facility] [id number] Univers 15:50:00 15:50:00 PEDRO [facility] 2019-09-25 2019-09-25 [place], Ariana [facility] [id number] Univers 18:00:22 18:15:22 Care Unknown, Attending Health [id number] ity Surgical [id number] Joe as Specialti [phone] Ne dical es [address] [facility] 2019-09-25 2019-09-25 Orders Doctor YASMIN [id number] Univers 00:00:00 00:00:00 Only Unassigned, COLLEEN [id number] ity of [place] [facility] 4.2.7.2.686 Joe as [phone] [facility] 009 [place] 2019-04-14 2019-04-14 Emergency [facility] [id number] Univers 13:29:58 16:53:00 Nishant Henderson Mela 350.1.13.10 i ty of [place] [id number] [place] [facility] [phone] [facility] 084 [place] 2019-04-14 2019-04-14 Orders Doctor YASMIN [id number] Univers 00:00:00 00:00:00 Only Unassigned, COLLEEN [id number] ity of [place] [facility] [id number] Joe as [phone] [address] Results Test Description Test Time Test Comments [...] development and interpretation of all internal controls [id number] 21:08:00 Test Item Value Reference Range Interpretation Comments POCT PREG (test code Negative = 1605) On board controls Yes acceptable with C Line (test code = 3574) POCT PREG LOT # (test code = 3575) POCT PREG TEST DATE (test code = 3576) ALVIN (test code = ALVIN) accurate development and interpretation of all internal controls [facility] FLU A AND B (MOLECULAR)2019-09-26 00:27:00 Test Item Value Reference Range Interpretation Comments POCT INFLUENZA A (test pos Negative - code = 3840) Negative POCT INFLUENZA B (test neg Negative - code = 3841) Negative ALVIN (test code = ALVIN) accurate development and interpretation of all internal controls Lab Interpretation Abnormal (test code = 31048-9) [facility]. METABOLIC PANEL ([id number])2019-04-14 19:57:00 Test Item Value Reference Range Interpretation Comments NA (test code = 142 mmol/L 135-145 8336356666) K (test code = 3.8 mmol/L 3.5-5 1400250064) CL (test code = 105 mmol/L 98-108 1473153608) CO2 TOTAL (test code = 26 mmol/L 23-31 9439904166) AGAP (test code = 2-16 7314018156) BUN (test code = 15 mg/dL 7-23 4545696343) GLUCOSE (test code = 118 mg/dL 70-110 H 3024013707) CREATININE (test code = 0.83 mg/dL 0.5-1.04 4640214593) TOTAL BILI (test code = 0.4 mg/dL 0.1-1.0 4889391988) CALCIUM (test code = 9.0 mg/dL 8.6-10.6 6965390699) T PROTEIN (test code = 7.9 g/dL 6.3-8.2 5483770556) ALBUMIN (test code = 4.3 g/dL 3.5-5 8565271861) ALK PHOS (test code = 72 U/L 34-122 9453889233) ALT(SGPT) (test code = 25 U/L 9-51 4903536788) AST(SGOT) (test code = 29 U/L 13-40 2170791692) eGFR Calculation mL/min/1.73m2 (Non-) (test code = 8394599269) eGFR Calculation mL/min/1.73m2 () (test code = 2132720319) ALVIN (test code = ALVIN) Association of [...] tests). Lab Interpretation Abnormal (test code = 11853-8) [facility] Test Item Value Reference Range Interpretation Comments LIPASE (test code = 8268722358) 99 U/L 0-220 Lab Interpretation (test code = Normal 22651-2) [facility] 19[facility]52[facility]00 Test Item Value Reference Range Interpretation Comments APPEARANCE (test code Slightly Cloudy Clear A = 4929446604) COLOR (test code = Yellow Yellow 0132965646) PH (test code = 4.8-8.0 4090433612) SP GRAVITY (test code 1.003-1.030 = 9779361219) GLU U QUAL (test code Negative Negative = 4927256749) BLOOD (test code = Negative Negative 4932305537) KETONES (test code = Negative Negative 5578197424) PROTEIN (test code = Negative Negative 2887-8) UROBILIN (test code = 0.2 mg/dL See_Comment [Auto mated 3294619665) message] The system which generated this result transmit doc reference range : 0-1.0 mg/dL. Th e reference range was not used to interpret this result as normal/abnormal . BILIRUBIN (test code Negative Negative = 6537382753) NITRITE (test code = Negative Negative 2261868782) LEUK LAURA (test code Negative Negative = 2563524794) RBC/HPF (test code = See_Comment [Autom ated 2320018746) message] The system which generated this result transmit doc reference range : 0 - 3 HPF. The reference range was not used to interpret this result as normal/abnormal . WBC/HPF (test code = See_Comment H [Autom ated 7129007751) message] The system which generated this result transmit doc reference range : 0 - 5 HPF. The reference range was not used to interpret this result as normal/abnormal . BACTERIA (test code = Many Negative A 9600726308) MUCOUS (test code = Marked Negative LPF A 9760077939) SQ EPITH (test code = HPF 1491607391) Lab Interpretation Abnormal (test code = 78044-7) [facility] WITH [id number] 19:34:00 Test Item Value Reference Range Interpretation [...] RDW-SD (test code = 40.2 fL 39-49.9 62800-0) RDW-CV (test code = 16.0 % 12-15.5 H 788-0) PLT (test code = See_Comment H [Automated 777-3) message] The sy stem which generated this result transmitted reference range : 166 - 358 10*3/ ?L. The reference r layton was not used to interpret this result as normal/abnormal . MPV (test code = 9.3 fL 9.5-12.9 L 47562-7) NRBC/100 WBC (test See_Comment [Automat ed code = 0908483818) message] The system which generated this result transmitted reference range : 0.0 - 10.0 /100 WBCs. The refer ence range was not u sed to interpret th is result as normal/abnormal . NRBC x10^3 (test code <0.01 See_Comment [Auto mated = 5108848680) message] The s ystem which generated this result transmitted reference range : 10*3/?L. The reference range was not used to interpret this result as normal/abnormal . GRAN MAT (NEUT) % 76.1 % (test code = 770-8) IMM GRAN % (test code 0.30 % = 6155267057) LYMPH % (test code = 14.9 % 736-9) MONO % (test code = 8.3 % 5905-5) EOS % (test code = 0.3 % 713-8) BASO % (test code = 0.1 % 706-2) GRAN MAT x10^3(ANC) 5.66 10*3/uL 1.88-7.09 (test code = 1557722289) IMM GRAN x10^3 (test <0.03 0-0.06 code = 2590571525) LYMPH x10^3 (test code 1.11 10*3/uL 1.32-3.29 L = 731-0) MONO x10^3 (test code 0.62 10*3/uL 0.33-0.92 = 742-7) EOS x10^3 (test code = <0.03 0.03-0.39 L 711-2) BASO x10^3 (test code <0.03 0.01-0.07 = 704-7) Lab Interpretation Abnormal (test code = 66347-1) [id number] 19:02:00 Test Item Value Reference Range Interpretation Comments POCT PREG (test code = 1605) negative On board controls acceptable with present C Line (test code = 3574) POCT PREG LOT # (test code = 3575) [id number] POCT PREG TEST DATE (test 2020-09-04 code = 3576) Lab Interpretation (test code = Normal 58743-3) [facility]"
[2022-04-30] MEDS ORDERED: MORPHINE 4 MG/ML SYR ONE ×2 (01:02→01:12)
[2022-04-30] MEDS ORDERED: NA CHLORIDE 0.9% 1,000 ML ONE ×2 (01:03→01:12)
[2022-04-30] MEDS ORDERED: ONDANSETRON 4 MG/2 ML VIAL ONE ×2 (01:03→01:12)
[2022-04-30] MEDS ORDERED: FAMOTIDINE 20 MG/2 ML VIAL IV ONE ×2 (01:03→01:12)
[2022-04-30 01:12] LABS: Absolute Lymphocytes (CBC) 3.6 K/uL (0.7-4.9); Hematocrit 34.3 % (36.0-45.0); Lymphocytes % 37.2 % (15.3-44.8); MPV 7.1 fL (7.6-11.3)
[2022-04-30 01:22] LABS: Urine Blood Negative (Negative); Urine Glucose Negative (Negative); Urine Protein Negative (Negative); Urine Specific Gravity 1.025 (1.005-1.030)
[2022-04-30 01:23] LABS: Albumin 3.4 g/dL (3.4-5.0); Bilirubin Total 0.2 mg/dL (0.2-1.0); Potassium 3.7 mmol/L (3.5-5.1); Protein, Total 7.6 g/dL (6.4-8.2)
--- NOTE | 2022-04-30 01:34 | ER ---
Nurse's Notes [facility] Name: Cher Ragland Age: 26 yrs Sex: Female : 1995 Arrival Date: 04/30/2022 Time: 00:37 Bed 8 Private MD: Diagnosis: Epigastric abdominal tenderness;Other cholelithiasis without obstruction Presentation: 04/30 00:46 Chief complaint: Patient states: she is having right upper quad pain for about an hour bb with nausea denies vomiting or diarrhea has had similar symptoms in the past. Coronavirus screen: At this time, the client does not indicate any symptoms associated with coronavirus-19. Ebola Screen: No symptoms or risks identified at this time. Initial Sepsis Screen: Does the patient meet any 2 criteria? No. Patient's initial sepsis screen is negative. Does the patient have a suspected source of infection? No. Patient's initial sepsis screen is negative. Risk Assessment: Do you want to hurt yourself or someone else?. Onset of symptoms was April 30, 2022. 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 - Social history:: Smoking status: Patient denies any tobacco usage or history of. - Family history:: not pertinent. Screenin:01 Abuse screen: Denies threats or abuse. Nutritional screening: No deficits noted. kl Tuberculosis screening: No symptoms or risk factors identified. Fall Risk None identified. Assessment: 01:00 General: Appears uncomfortable, well groomed, well developed, Behavior is calm, kl cooperative. Pain: Complains of pain in right upper quadrant and epigastric area Pain currently is 8 out of 10 on a pain scale. Neuro: No deficits noted. Level of Consciousness is awake, alert, obeys commands. Cardiovascular: No deficits noted. Respiratory: No deficits noted. Airway is patent Respiratory effort is even, unlabored. GI: Bowel sounds present X 4 quads. Abdomen is tender to palpation in right upper quadrant. : No deficits noted. No signs and/or symptoms were reported regarding the genitourinary system. EENT: No deficits noted. No signs and/or symptoms were reported regarding the EENT system. 01:50 Reassessment: pt in low mcelroy's, eyes closed, breathing regularly and unlabored. aa9 awaiting urine culture results prior to discharge. 02:07 Reassessment: pt ambulated out the er, stable condition, verbalized understanding. aa9 Vital Signs: 00:46 BP 118 / 79; Pulse 97; Resp 16 S; Temp 98.6(O); Pulse Ox 97% on R/A; Weight 88.45 kg bb (R); Height 5 ft. 2 in. (157.48 cm) (R); Pain 10/10; 02:06 BP 116 / 79; Pulse 76; Resp 15 S; Pulse Ox 97% on R/A; aa9 00:46 Body Mass Index 35.67 (88.45 kg, 157.48 cm) bb ED Course: 00:37 Patient arrived in ED. bp1 00:39 Abhilash Milton MD is Attending Physician. atilio 00:47 Diana Walker, OJSY is Primary Nurse. aa9 00:49 Triage completed. bb 00:49 Arm band placed on Patient placed in an exam room, on a stretcher, on pulse oximetry. bb 00:49 Patient has correct armband on for positive identification. Bed in low position. Side aa9 rails up X2. 00:55 Inserted saline lock: 20 gauge in right forearm, using aseptic technique. kl 01:33 Steve Hernandez MD is Referral Physician. atilio 01:35 Abdomen Limited US In Process Unspecified. EDMS 01:38 Urine Culture Sent. aa9 02:06 No provider procedures requiring assistance completed. IV discontinued, intact, aa9 bleeding controlled, No redness/swelling at site. Pressure dressing applied. Administered Medications: 01:03 Drug: Pepcid (famotidine) 20 mg Route: IVP; Site: right forearm; kd3 01:12 Follow up: Response: No adverse reaction kd3 01:03 Drug: Zofran (Ondansetron) 4 mg Route: IVP; Site: right forearm; kd3 01:12 Follow up: Response: No adverse reaction kd3 01:03 Drug: morphine 4 mg Route: IVP; Infused Over: 4 mins; Site: right forearm; kd3 01:12 Follow up: Response: No adverse reaction; RASS: Alert and Calm (0) kd3 01:04 Drug: NS 0.9% 1000 ml Route: IV; Rate: 1 bolus; Site: right forearm; kd3 02:09 Follow up: Response: No adverse reaction; IV Status: Completed infusion; IV Intake: aa9 700ml 01:45 Drug: Rocephin (cefTRIAXone) 1 grams Route: IV; Rate: per protocol; Site: right forearm;aa9 01:46 Follow up: Response: No adverse reaction; IV Status: Completed infusion; IV Intake: [id number] Medication: 02:07 VIS not applicable for this client. aa9 Intake: 01:46 IV: 10ml; Total: 10ml. aa9 02:09 IV: 700ml; Total: 710ml. aa9 Outcome: 01:33 Discharge ordered by MD. trimble 02:07 Discharged to home ambulatory. aa9 02:07 Condition: stable 02:07 Discharge instructions given to patient, Instructed on discharge instructions, follow up and referral plans. medication usage, Demonstrated understanding of instructions, follow-up care, medications, Prescriptions given X 4. 02:09 Patient left the ED. aa9 Signatures: Dispatcher [employer] EDMS Devora Bonilla RN RN kl Anderson, Corey, MD MD cha Ballard, Brenda, RN RN bb Paniauga, Brittany bp1 Doucette, Kyli, RN RN kd3 Avalos, Aylin, RN RN aa9 Corrections: (The following items were deleted from the chart) 01:03 01:03 Pepcid (famotidine) 20 mg IVP in left forearm kd3 kd3 01:09 00:59 Inserted saline lock: 20 gauge in right antecubital area, using aseptic kl technique. marvin
--- NOTE | 2022-04-30 01:34 | EDPHYS ---
Physician Documentation [facility] Name: Cher Ragland Age: 26 yrs Sex: Female : 1995 Arrival Date: 04/30/2022 Time: 00:37 Bed 8 Private MD: ED Physician Abhilash Milton HPI: 04/30 00:50 This 26 yrs old Black Female presents to ER via Ambulatory with complaints of Abdominal atilio Pain. 00:50 The patient presents with abdominal pain abdominal distention in the upper abdomen, in atilio the lower abdomen. Onset: The symptoms/episode began/occurred 1 day(s) ago. The symptoms do not radiate. Associated signs and symptoms: Pertinent positives: nausea and vomiting. The symptoms are described as burning, constant, crampy. Modifying factors: The symptoms are alleviated by nothing, the symptoms are aggravated by food. Severity of pain: At its worst the pain was moderate in the emergency department the pain is unchanged. The patient has not experienced similar symptoms in the past. 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 - Social history:: Smoking status: Patient denies any tobacco usage or history of. - Family history:: not pertinent. ROS: 00:50 Constitutional: Negative for fever, chills, and weight loss, Eyes: Negative for injury, atilio pain, redness, and discharge, ENT: Negative for injury, pain, and discharge, Neck: Negative for injury, pain, and swelling, Cardiovascular: Negative for chest pain, palpitations, and edema, Respiratory: Negative for shortness of breath, cough, wheezing, and pleuritic chest pain, Back: Negative for injury and pain, : Negative for injury, bleeding, discharge, and swelling, MS/Extremity: Negative for injury and deformity, Skin: Negative for injury, rash, and discoloration, Neuro: Negative for headache, weakness, numbness, tingling, and seizure, Psych: Negative for depression, anxiety, suicide ideation, homicidal ideation, and hallucinations, Allergy/Immunology: Negative for hives, rash, and allergies, Endocrine: Negative for neck swelling, polydipsia, polyuria, polyphagia, and marked weight changes, Hematologic/Lymphatic: Negative for swollen nodes, abnormal bleeding, and unusual bruising. 00:50 Abdomen/GI: Positive for nausea, constipation, abdominal cramps, abdominal distension, of the epigastric area and right upper quadrant. Exam: 00:51 Constitutional: This is a well developed, well nourished patient who is awake, alert, atilio and in no acute distress. Head/Face: Normocephalic, atraumatic. Eyes: Pupils equal round and reactive to light, extra-ocular motions intact. Lids and lashes normal. Conjunctiva and sclera are non-icteric and not injected. Cornea within normal limits. Periorbital areas with no swelling, redness, or edema. ENT: Nares patent. No nasal discharge, no septal abnormalities noted. Tympanic membranes are normal and external auditory canals are clear. Oropharynx with no redness, swelling, or masses, exudates, or evidence of obstruction, uvula midline. Mucous membranes moist. Neck: Trachea midline, no thyromegaly or masses palpated, and no cervical lymphadenopathy. Supple, full range of motion without nuchal rigidity, or vertebral point tenderness. No Meningismus. Chest/axilla: Normal chest wall appearance and motion. Nontender with no deformity. No lesions are appreciated. Cardiovascular: Regular rate and rhythm with a normal S1 and S2. No gallops, murmurs, or rubs. Normal PMI, no JVD. No pulse deficits. Respiratory: Lungs have equal breath sounds bilaterally, clear to auscultation and percussion. No rales, rhonchi or wheezes noted. No increased work of breathing, no retractions or nasal flaring. Back: No spinal tenderness. No costovertebral tenderness. Full range of motion. 00:51 Respiratory: the patient does not display signs of respiratory distress, Respirations: no acute changes, Breath sounds: rhonchi, that are moderate, are located in both bases, Respiratory rate: 97 % Vital Signs: 00:46 BP 118 / 79; Pulse 97; Resp 16 S; Temp 98.6(O); Pulse Ox 97% on R/A; Weight 88.45 kg bb (R); Height 5 ft. 2 in. (157.48 cm) (R); Pain 10/10; 02:06 BP 116 / 79; Pulse 76; Resp 15 S; Pulse Ox 97% on R/A; aa9 00:46 Body Mass Index 35.67 (88.45 kg, 157.48 cm) bb MDM: 00:39 Patient medically screened. [facility] 00:52 Differential diagnosis: acute coronary syndrome, appendicitis, bowel obstruction, atilio cholecystitis, Cholelithiasis, diverticulitis, Dysmenorrhea, Endometriosis, Herpes Zoster, sympomatic leaking abdominal aortic aneurysm, Menorrhagia, non-specific abd pain. 00:53 Data reviewed: vital signs, nurses notes, lab test result(s), EKG, radiologic studies, [facility] CT scan, plain films. Data interpreted: monitor technician: rate is 97 beats/min, Pulse oximetry: is not applicable for this patient encounter. Test interpretation: by ED physician or midlevel provider: ECG, plain radiologic studies. Counseling: I had a detailed discussion with the patient and/or guardian regarding: the presence of at least one elevated blood pressure reading (>120/80) during this emergency department visit, lab results, the need for outpatient follow up. 04/30 00:50 Order name: CBC with Diff; Complete Time: : [facility] 04/30 00:50 Order name: CMP; Complete Time: [facility] 04/30 00:50 Order name: Lipase; Complete Time: [facility] 04/30 01:22 Order name: Urine --Ancillary (enter results) 04/30 01:22 Order name: Urine Dipstick-Ancillary; Complete Time: 01:25 EDVT 04/30 01:32 Order name: Urine Culture [facility] 04/30 00:50 Order name: Abdomen Limited US [facility] 04/30 00:50 Order name: IV Saline Lock; Complete Time: 00:59 [facility] 04/30 00:50 Order name: Labs collected and sent; Complete Time: 01:45 [facility] 04/30 00:50 Order name: Urine Dipstick-Ancillary (obtain specimen); Complete Time: 01:21 [facility] 04/30 00:50 Order name: Urine Test (obtain specimen); Complete Time: 01:21 [facility] Administered Medications: 01:03 Drug: Pepcid (famotidine) 20 mg Route: IVP; Site: right forearm; kd3 01:12 Follow up: Response: No adverse reaction kd3 01:03 Drug: Zofran (Ondansetron) 4 mg Route: IVP; Site: right forearm; kd3 01:12 Follow up: Response: No adverse reaction kd3 01:03 Drug: morphine 4 mg Route: IVP; Infused Over: 4 mins; Site: right forearm; kd3 01:12 Follow up: Response: No adverse reaction; RASS: Alert and Calm (0) kd3 01:04 Drug: NS 0.9% 1000 ml Route: IV; Rate: 1 bolus; Site: right forearm; kd3 02:09 Follow up: Response: No adverse reaction; IV Status: Completed infusion; IV Intake: aa9 700ml 01:45 Drug: Rocephin (cefTRIAXone) 1 grams Route: IV; Rate: per protocol; Site: right forearm;aa9 01:46 Follow up: Response: No adverse reaction; IV Status: Completed infusion; IV Intake: [id number] Disposition Summary: 04/30/22 01:33 Discharge Ordered Location: Home atilio Problem: new atilio Symptoms: have improved atilio Condition: Stable atilio Diagnosis - Epigastric abdominal tenderness atilio - Other cholelithiasis without obstruction atilio Followup: atilio - With: Private Physician - When: 1 - 2 days - Reason: Recheck today's complaints, Continuance of care, Re-evaluation by your physician Followup: atilio - With: - When: 2 - 3 days - Reason: Recheck today's complaints, Re-evaluation by your physician Discharge Instructions: - Discharge Summary Sheet atilio - Abdominal Pain, Adult atilio - Cholelithiasis atilio - Cholelithiasis, Sslo-rz-Empv atilio - Abdominal Pain, Adult, Xaiv-hz-Hxtc atilio - Cholecystitis, Jfje-an-Xyll atilio Forms: - Medication Reconciliation Form atilio - Thank You Letter atilio - Antibiotic Education atilio - Prescription Opioid Use [facility] Prescriptions: - Augmentin 875-125 mg Oral Tablet - take 1 tablet by ORAL route every 12 hours for 10 days; 20 tablet; Refills: 0, [facility] Product Selection Permitted - Pepcid 20 mg Oral Tablet - take 1 tablet by ORAL route every 12 hours for 21 days; 42 tablet; Refills: 0, [facility] Product Selection Permitted - Zofran 4 mg Oral Tablet - take 1 tablet by ORAL route every 12 hours As needed; 20 tablet; Refills: 0, atilio Product Selection Permitted - dicyclomine 20 mg Oral Tablet - take 1 tablet by ORAL route 4 times per day; 28 tablet; Refills: 0, Product atilio Selection Permitted Signatures: Dispatcher [employer] Abhilash Mooney, Bethany Cisneros MD, cha, RN RN bb Bernice Razo RN RN kd3 Diana Walker RN RN aa9
[2022-04-30] MEDS ORDERED: CEFTRIAXONE 1000 MG/VIAL ONE (01:47)
[2022-04-30 02:01] LABS: Urine Specific Gravity/Preg 1.025 (1.005-1.030)
[2022-04-30 03:21] VITALS: TEMP 98.6; O2SAT 97
[2022-04-30 03:23] VITALS: BP 116/79
--- NOTE | 2022-05-01 15:35 | RAD REPORT ---
EXAM DESCRIPTION: US - Abdomen Exam Limited - 04/30/2022 2:01 am CLINICAL HISTORY: ABD PAIN TECHNIQUE: Real-time ultrasound of the right upper quadrant with image documentation. COMPARISON: US Abdomen Limited Gallbladder dated 01/14/2022 FINDINGS: Gallbladder: Multiple gallstones. No gallbladder wall thickening or pericholecystic flui d. medical technologist prn noted a sonographic negative Valerio's sign. Common bile duct: Unremarkable as visualized. No stones. No dilation. IMPRESSION: Cholelithiasis without secondary signs to suggest acute cholecystitis. Electronically signed by: Constantine Bowden MD 04/30/2022 1:52 AM CDT Due to temporary technical issues with the PACS/Fluency reporting system, reports are being signed by the in house radiologists without review as a courtesy to insure prompt reporting. The interpreting radiologist is fully responsible for the content of the report.
== END 2022-04-30 02:09 | disposition home or self-care (01) ==
LOC: ER 00:35
DX: K80.80 Other cholelithiasis without obstruction (principal); F31.9 Bipolar disorder, unspecified
CPT/HCPCS: 36415; 76705; 80053; 81003; 81025; 83690; 85025; 87086; 87088; 96361; 96374; 96375; 99284; J2405; J7030

== ENCOUNTER 2022-11-11 23:51 | Emergency (ER) | payer SELFPAY ==
--- OUTSIDE RECORDS SUMMARY | 2022-11-11 23:55 | XMS REPORT | Continuity of Care Document ---
:1995 Author Organization [facility] [place] t Address [address] [facility] [address] [place] [address] Care Team Providers Name Role Phone Yancy_Gumegus Raymon Henderson Primary Care Physician [phone] ELAINE ANTON Attending Clinician Unavailable NORRIS CARMEN Attending Clinician Unavailable RAHAT HERZOG Attending Clinician Unavailable Rahat Herzog MD Attending Clinician LUDWIG REDDY Attending Clinician Unavailable MATILDA LOVING Attending Clinician Unavailable ARGELIA NG Attending Clinician Unavailable Elaine Anton MD Attending Clinician Doctor Unassigned, [place] Attending Clinician Unavailable PEDRO HIDALGO Attending Clinician Unavailable Ariana Harrington Attending Clinician Unknown, Attending Attending Clinician Unavailable Nishant Moreau Attending Clinician RAHAT HERZOG Admitting Clinician Unavailable Payers Payer Name Policy Type Policy Number Effective Date Expiration Date S semaj [id number] 2021 00:00:00 [facility] [id number] 2019 00:00:00 Problems Condition Condition Condition Status Onset Resolution Last Treating Co mments Source Name Details Category Date Date Treatment Clinician Date Nexplanon Nexplanon Disease Active Uni vers in place in place 4-15 ity of 00:00: [place] 00 Medical Branch Post term Post term Disease Active 2017-09 Uni vers 2-19 ity of over 40 over 40 00:00: [place] weeks weeks 00 Medical Branch Obesity Obesity Disease Active Univers (BMI (BMI 8-18 ity of 30-39.9) 30-39.9) 00:00: [place] 00 Medical Branch 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 nce 9-05 it y of a a 00:00: [place] 00 Medical Branch No known No known Disease Metho di active active st problems problems Hospit [facility] l Allergies, Adverse Reactions, Alerts Allergy Allergy Status Severity Reaction(s) Onset Inactive Treating Comm ents Source Name Type Date Date Clinician NO KNOWN Drug Active Univers ALLERGIE Class ity of S [facility] Social History Social Habit Start Date Stop Date Quantity Comments Source Exposure to 2022-04-22 2022-05-02 Not sure University SARS-CoV-2 00:00:00 03:10:00 [facility] (event) [place] Alcohol intake 2016-06-29 2016-06-29 Current drinker [facility] 00:00:00 00:00:00 of alcohol (finding) Tobacco use and 2016-06-18 2016-06-18 Smokeless tobacco [facility] exposure 00:00:00 00:00:00 non-user Alcohol Comment 2016-06-18 2016-06-18 rarely [facility] 00:00:00 00:00:00 Sex Assigned At [birth year] [facility] 00:00:00 00:00:00 Smoking Status Start Date Stop Date Source Never smoked tobacco [facility] ospital Medications Ordered Filled Start Stop Current Ordering Indication Dosage Frequency Signature Comments Components Source Medication Medication Date Date Medication? Clinician (SIG) Name Name iohexoL 2021- No [id number] 60mL 60 mL, Uni vers (OMNIPAQUE 05-02 Intravenou it y of 350 BULK-50 09:30: 09:19 s, ONCE, 1 [place] mL) 00 :00 dose, On Medical injection [place] [facility] 60 mL 05/02/22 at 0430, Routine ondansetron 2021- No 4mg 4 mg, Slow Univers (ZOFRAN 05-02 IV Push, ity of (PF)) 09:15: 08:20 ONCE, 1 [place] injection 4 00 :00 dose, On Medi jonh mg [place] 05/02/22 at 0415, ANTONIO morpHINE (4 2021- No 4mg 4 mg, Slow Univers mg/mL) 05-02 IV Push, ity of injection 4 08:15: 08:20 [place]CE[place] 1 [place] mg 00 :[place] dose, On Medical [place] 05/02/22 at 0315, STAT ciprofloxac Yes [id number] 500mg Take 1 Univers in HCl 500 - tablet by ity of mg tablet 00:00: [place] the Medical morning Branch and 1 tablet in the evening. ondansetron Yes [id number] 4mg Take 1 Univers 4 mg -28 tablet by ity of disintegrat 00:00: mouth [place] ing tablet 00 every 4 Medica l (four) Branch hours as needed for Nausea and Vomiting (N/V). HYDROcodone 2021- No [id number] 1{tbl} Take 1 U nivers -acetaminop 05-0205 tablet by it y of hen (NORCO) 00:00: 04:59 [place] 7.5-325 mg 00 :00 every 8 Medica l per tablet (eight) Branch hours as needed for Pain for up to 7 days. Indication s: acute pain etonogestre 2020- No [id number] 68mg Univers L 12-18-15 ity of (NEXPLANON) 21:30: 20:26 [place] implant 68 00 :00 Medical mg Branch etonogestre 2020- No [id number] 68mg 68 mg, Univers L 12-18-15 Subdermal, ity of (NEXPLANON) 21:30: 20:26 ONCE NOW, [place] implant 68 00 :00 1 dose, Medica l mg [place] Branch 12/18/20 at 1630, Routine
Use approved by: [employer] etonogestre 2020- No [id number] 68mg Univers L 4-15 -15 ity of (NEXPLANON) 21:30: 20:26 [place] implant 68 00 :00 Medical mg Branch etonogestre 2020- No [id number] 68mg 68 mg, Univers L 15 -15 Subdermal, ity of (NEXPLANON) 21:30: 20:26 ONCE NOW, [place] implant 68 00 :00 1 dose, Medica l mg [place] Branch 12/18/20 at 1630, Routine
Use approved by: [employer] acetaminoph No 650mg Take 650 Univers en [...] mouth ity of mg tablet 21:07: daily. [address] citalopram Yes 40mg Take 40 mg U nivers (CELEXA) 40 4-14 by mouth ity of mg tablet 21:07: daily. [address] citalopram Yes 40mg Take 40 mg U nivers (CELEXA) 40 4-14 by mouth ity of mg tablet 21:07: daily. [address] citalopram Yes 40mg Take 40 mg U nivers (CELEXA) 40 4-14 by mouth ity of mg tablet 21:07: daily. [address] citalopram Yes 40mg Take 40 mg U nivers (CELEXA) 40 4-14 by mouth ity of mg tablet 21:07: daily. [address] citalopram Yes 40mg Take 40 mg U nivers (CELEXA) 40 4-14 by mouth ity of mg tablet 21:07: daily. [address] citalopram 2021-0 Yes 40mg Take 40 mg U nivers (CELEXA) 40 4-14 by mouth ity of mg tablet 16:07: daily. [place] 33 Medical Branch acetaminoph 2019-0 Yes 650mg Take 650 U nivers en 1-22 mg by ity of (TYLENOL) 00:10: mouth [place] 325 mg 50 every 6 Medical tablet (six) Branch hours as needed. acetaminoph 0 Yes 650mg Take 650 U nivers en 1-22 mg by ity of (TYLENOL) 00:10: mouth [place] 325 mg 50 every 6 Medical tablet (six) Branch hours as needed. baloxavir 2020- No [id number] 80mg Take 2 Univers marboxiL 1-21 -22 tablets by ity of (XOFLUZA) 00:00: 05:59 mouth once [place] 40 mg 00 :00 now for 1 Medical tablet dose. [place] dicyclomine Yes 10mg 10 mg, Univ ers (BENTYL) 8-10 Oral, QID, ity o f capsule 10 21:00: First dose [place] mg 00 on [facility] 04/14/19 at Branch 1600, Until Discontinu ed, Routine iohexol 2018- No 120mL 120 mL, Unive rs (OMNIPAQUE 04-14-10 Intravenou it y of 350 20:45: 20:26 s, ONCE, 1 [place] BULK-150 00 :00 dose, Sat Medica l mL) 04/14/19 at Branch injection 1545, 120 mL Routine ondansetron 2018- No 4mg 4 mg, Slow Univers (ZOFRAN 04-14 08-10 IV Push, ity of (PF)) 20:30: 20:19 ONCE, 1 [place] injection 4 00 :00 dose, Sat Med ical mg 04/14/19 at Branch 1530, Routine morpHINE 2019- No 4mg 4 mg, Slow Un [place] injection 4 04-14 08-10 IV Push, ity of mg 20:00: 19:04 ONCE, 1 [place] 00 :00 dose, [facility] Medical 04/14/19 at Branch 1500, Routine ondansetron 2019- No 4mg 4 mg, Slow Univers (ZOFRAN 8- 08-10 IV Push, ity of (PF)) 20:00: 19:04 ONCE, 1 [place] injection 4 00 :00 dose, Sat Med ical mg 04/14/19 at Branch 1500, Routine NaCl 0.9% No 1000mL at 999 Uni vers (NS) [...] 00:00: 00:00 mouth [place] 00 :00 daily. Medical Branch foLIC acid 2017-09- No 1mg Take 1 Univ ers 1 mg tablet 0-08 04-14 tablet by it y of 00:00: 00:00 mouth [place] 00 :00 daily. Medical Branch naproxen 2015-09 Yes 220mg Take 220 [...] Immunizations Ordered Filled Immunization Date Status Comments [facility] Immunization Name Name SARS-COV-2 COVID-19 2020-10-31 Completed Unive rsity of PFIZER VACCINE 00:00:00 [facility] Branch SARS-COV-2 COVID-19 2020-10-31 Completed Unive rsity of PFIZER VACCINE 00:00:00 [facility] Branch SARS-COV-2 COVID-19 2020-10-31 Completed Unive rsity of PFIZER VACCINE 00:00:00 [facility] Branch SARS-COV-2 COVID-19 2020-10-31 Completed Unive rsity of PFIZER VACCINE 00:00:00 [facility] Branch SARS-COV-2 COVID-19 2020-10-31 Completed Unive rsity of PFIZER VACCINE 00:00:00 [facility] Branch SARS-COV-2 COVID-19 2020-10-31 Completed Unive rsity of PFIZER VACCINE 00:00:00 [facility] Branch SARS-COV-2 COVID-19 2020-10-31 Completed Unive rsity of PFIZER VACCINE 00:00:00 [facility] Branch SARS-COV-2 COVID-19 2020-10-31 Completed Unive rsity of PFIZER VACCINE 00:00:00 [facility] Branch SARS-COV-2 COVID-19 2020-09-30 Completed Unive rsity of PFIZER VACCINE 00:00:00 [facility] Branch SARS-COV-2 COVID-19 2020-09-30 Completed Unive rsity of PFIZER VACCINE 00:00:00 [facility] Branch SARS-COV-2 COVID-19 2020-09-30 Completed Unive rsity of PFIZER VACCINE 00:00:00 [facility] Branch SARS-COV-2 COVID-19 2020-09-30 Completed Unive rsity of PFIZER VACCINE 00:00:00 [facility] Branch SARS-COV-2 COVID-19 2020-09-30 Completed Unive rsity of PFIZER VACCINE 00:00:00 [facility] Branch SARS-COV-2 COVID-19 2020-09-30 Completed Unive rsity of PFIZER VACCINE 00:00:00 [facility] SARS-COV-2 COVID-19 2020-09-30 Completed Unive rsity of PFIZER VACCINE 00:00:00 [facility] SARS-COV-2 COVID-19 2020-09-30 Completed Unive rsity of PFIZER VACCINE 00:00:00 [facility] Branch Influenza Virus 2018-06-12 Completed Universit y of Vaccine [place] .5 mL 00:00:00 [place] Medical IM 6+ MO Branch Influenza Virus 2018-06-12 Completed Universit y of Vaccine [place] .5 mL 00:00:00 [place] Medical IM 6+ MO Branch Influenza Virus 2018-06-12 Completed Universit y of Vaccine [place] .5 mL 00:00:00 [place] Medical IM 6+ MO Branch Influenza Virus 2018-06-12 Completed Universit y of Vaccine [place] .5 mL 00:00:00 [place] [facility] IM 6+ MO Branch Influenza Virus 2018-06-12 Completed Universit y of Vaccine [place] .5 mL 00:00:00 [facility] IM 6+ MO Branch Influenza Virus 2018-06-12 Completed Universit y of Vaccine [place] .5 mL 00:00:00 [facility] 6+ MO Branch Influenza Virus 2018-06-12 Completed Universit y of Vaccine [place] .5 mL 00:00:00 [facility] IM 6+ MO Branch Influenza Virus 2018-06-12 Completed Universit y of Vaccine [place] .5 mL 00:00:00 [facility] IM 6+ MO Branch Influenza Virus 2018-06-12 Completed Universit y of Vaccine [place] .5 mL 00:00:00 [facility] IM 6+ MO Branch Influenza Virus 2018-06-12 Completed Universit y of Vaccine [place] .5 mL 00:00:00 [facility] 6+ MO Branch Influenza Virus 2018-06-12 Completed Universit y of Vaccine [place] .5 mL 00:00:00 [facility] IM 6+ MO Branch Influenza Virus 2018-06-12 Completed Universit y of Vaccine [place] .5 mL 00:00:00 [facility] 6+ MO Branch Tdap 2018-05-29 Completed University of 00:00:00 [facility] TDAP 2018-05-29 Completed University of 00:00:00 [facility] TDAP 2018-05-29 Completed University of 00:00:00 [facility] TDAP 2018-05-29 Completed University of 00:00:00 [facility] TDAP 2018-05-29 Completed University of 00:00:00 [facility] TDAP 2018-05-29 Completed University of 00:00:00 [facility] TDAP 2018-05-29 Completed University of 00:00:00 [facility] TDAP 2018-05-29 Completed University of 00:00:00 [place] [facility] TDAP 2018-05-29 Completed University of 00:00:00 [place] [facility] Tdap 2018-05-29 Completed University of 00:00:00 [place] [facility] Tdap 2018-05-29 Completed University of 00:00:00 [place] [facility] Tdap 2018-05-29 Completed University of 00:00:00 [facility] Vital Signs Vital Name Observation Time Observation Value Comments Source Systolic blood 2022-05-02 10:00:00 123 mm[Hg] Univer sity of pressure [facility] Branch Diastolic blood 2022-05-02 10:00:00 83 mm[Hg] Unive rsity of pressure [facility] Heart rate 2022-05-02 10:00:00 83 /min Universi ty of [facility] Respiratory rate 2022-05-02 10:00:00 20 /min [facility] Oxygen saturation in 2022-05-02 10:00:00 98 /min [facility] Arterial blood by [facility] Pulse oximetry Branch Body temperature 2022-05-02 08:10:00 37.11 Lakshmi Univ ersity of [facility] Body weight 2022-05-02 08:10:00 86.183 kg Universi ty of [place] [facility] [place] BMI 2022-05-02 08:10:00 34.75 kg/m2 Universi ty of [place] [facility] Systolic blood 2020-12-18 19:40:00 105 mm[Hg] Univer sity of pressure [facility] Diastolic blood 2020-12-18 19:40:00 72 mm[Hg] Unive rsity of pressure [facility] Branch Heart rate 2020-12-18 19:40:00 72 /min Universi ty of [place] [facility] [place] Body temperature 2020-12-18 19:40:00 36.89 Lakshmi Univ ersity of [facility] Branch Respiratory rate 2020-12-18 19:40:00 18 /min Univ ersity of [facility] Branch Body height 2020-12-18 19:40:00 157.5 cm Universi ty of [place] [facility] [place] Body weight 2020-12-18 19:40:00 86.546 kg Universi ty of [place] [facility] [place] BMI 2020-12-18 19:40:00 34.90 kg/m2 Universi ty of [place] [facility] Systolic blood 2020-12-18 19:40:00 105 mm[Hg] Univer sity of pressure [place] [facility] Diastolic blood 2020-12-18 19:40:00 72 mm[Hg] Unive rsity of pressure [place] [facility] Heart rate 2020-12-18 19:40:00 72 /min Universi ty of [place] [facility] Body temperature 2020-12-18 19:40:00 36.89 Lakshmi Univ ersity of [place] [facility] Respiratory rate 2020-12-18 19:40:00 18 /min Univ ersity of [place] [facility] Body height 2020-12-18 19:40:00 157.5 cm Universi ty of [place] [facility] Body weight 2020-12-18 19:40:00 86.546 kg Universi ty of [place] [facility] BMI 2020-12-18 19:40:00 34.90 kg/m2 Universi ty of [place] [facility] Systolic blood 2020-12-17 21:04:00 111 mm[Hg] Univer sity of pressure [place] [facility] Diastolic blood 2020-12-17 21:04:00 78 mm[Hg] Unive rsity of pressure [place] [facility] Heart rate 2020-12-17 21:04:00 96 /min Universi ty of [place] [facility] Body temperature 2020-12-17 21:04:00 36.72 Lakshmi Univ ersity of [place] [facility] Respiratory rate 2020-12-17 21:04:00 16 /min Univ ersity of [place] [facility] Body height 2020-12-17 21:04:00 157.5 cm Universi ty of [place] [facility] Body weight 2020-12-17 21:04:00 88.089 kg Universi ty of [place] [facility] BMI 2020-12-17 21:04:00 35.52 kg/m2 Universi ty of [place] [facility] Systolic blood 2019-09-26 00:09:00 123 mm[Hg] Univer sity of pressure [place] [facility] Diastolic blood 2019-09-26 00:09:00 81 mm[Hg] Unive rsity of pressure [place] [facility] Heart rate 2019-09-26 00:09:00 102 /min Universi ty of [place] [facility] Body temperature 2019-09-26 00:09:00 37.61 Lakshmi Univ ersity of [place] [facility] Respiratory rate 2019-09-26 00:09:00 18 /min [facility] Body height 2019-09-26 00:09:00 157.5 cm [facility] Body weight 2019-09-26 00:09:00 84.482 kg [facility] BMI 2019-09-26 00:09:00 34.07 kg/m2 [facility] Oxygen saturation in 2019-09-26 00:09:00 100 /min [facility] Arterial blood by [facility] Pulse oximetry Branch Systolic blood 2019-04-14 21:00:00 125 mm[Hg] [facility] Diastolic blood 2019-04-14 21:00:00 72 mm[Hg] Unive [facility] Heart rate 2019-04-14 21:00:00 98 /min [facility] Respiratory rate 2019-04-14 21:00:00 18 /min [facility] Oxygen saturation in 2019-04-14 21:00:00 99 /min [facility] Arterial blood by [facility] Pulse oximetry Branch Body temperature 2019-04-14 18:37:00 37 Lakshmi [facility] Body height 2019-04-14 18:37:00 157.5 cm [facility] Body weight 2019-04-14 18:37:00 83.915 kg [facility] BMI 2019-04-14 18:37:00 33.84 kg/m2 [facility] Procedures Procedure Date / Time Performing Clinician Source Performed CT ABDOMEN PELVIS W 2022-05-02 09:23:47 Rahat Herzog [facility] CONTRAST [facility] POCT TEST 2022-05-02 08:17:00 Rahat Herzog [facility] LIPASE 2022-05-02 08:16:00 Rahat Herzog o [facility] COMP. METABOLIC PANEL 2022-05-02 08:16:00 Rahat Herzog [facility] [place] [facility] ([id number]) [facility] CBC WITH DIFF 2022-05-02 08:16:00 Rahat Herzog o f [facility] PROTHROMBIN TIME / INR 2022-05-02 08:16:00 Rahat Herzog [facility] ACTIVATED PARTIAL 2022-05-02 08:16:00 Rahat Herzog [facility] THRMPLAS AMGALYS [facility] URINALYSIS 2022-05-02 08:16:00 Mino [facility] NOTICE OF PRIVACY 2022-05-02 08:05:12 Doctor Unassigned, No Univ [facility] PRACTICES [facility] Medical Branch CONSENT/REFUSAL FOR 2022-05-02 08:04:21 Doctor Unassigned, [facility] Branch CONSENT FOR 2020-12-18 05:01:00 Doctor Unassigned, No [facility] CONTRACEPTION [facility] POCT TEST 2020-12-17 21:08:00 Elaine Anton [facility] ASSIGNMENT OF BENEFITS 2019-09-25 23:59:43 Doctor Unassigned, No [facility] POCT FLU A AND B 2019-09-25 00:00:00 [facility] CT ABDOMEN PELVIS W 2019-04-14 20:35:48 Nishant Davis [facility] CONTRAST [facility] LIPASE 2019-04-14 19:03:00 Nishant Davis [facility] COMP. METABOLIC PANEL 2019-04-14 19:03:00 Nishant Davis [facility] ([id number]) [facility] CBC WITH DIFFERENTIAL 2019-04-14 19:03:00 Nishant Davis [facility] URINALYSIS 2019-04-14 19:03:00 Nishant Davis [facility] POCT TEST 2019-04-14 19:02:00 Nishant Davis [facility] CONSENT/REFUSAL FOR 2019-04-14 18:20:32 Doctor Unassigned, No [facility] Plan of Care Planned Activity Planned Date Details Comments Source Future Scheduled 2022-08-28 [facility] Test 00:16:49 malignant neoplasm of cervix (procedure) [code = 837326380] Future Scheduled 2022-08-28 [facility] 00:16:49 [code = INFLUENZA VACCINE] Future Scheduled 2022-08-28 COVID-[address] [facility] Test 00:16:49 (#1) [code = COVID-19 VACCINE (#1)] Future Scheduled 2022-07-09 [facility] 05:02:21 VACCINES (1 of 3 - 3-dose series) [code = HEPATITIS B VACCINES (1 of 3 - 3-dose series)] Future Scheduled 2022-07-09 COVID-[address] [facility] Test 05:02:21 (#1) [code = COVID-19 VACCINE (#1)] Future Scheduled 2022-07-09 [facility] Test 05:02:21 malignant neoplasm of cervix (procedure) [code = 821481048] Future Scheduled 2022-07-09 [facility]INE [facility] 05:02:21 [code = INFLUENZA VACCINE] Future Scheduled 2022-04-23 [facility] 07:49:26 VACCINES (1 of 3 - 3-dose series) [code = HEPATITIS B VACCINES (1 of 3 - 3-dose series)] Future Scheduled 2022-04-23 COVID-[address] [facility] Test 07:49:26 (#1) [code = COVID-19 VACCINE (#1)] Future Scheduled 2022-04-23 [facility] Test 07:49:26 malignant neoplasm of cervix (procedure) [code = 861328519] Future Scheduled 2022-04-23 [facility]ZA [facility]ACCINE [facility] 07:49:26 [code = INFLUENZA VACCINE] Future Scheduled [facility] Test malignant neoplasm of cervix (procedure) [code = 166447806] Future Scheduled [facility]INE [facility] [code = INFLUENZA VACCINE] Future Scheduled COVID-[address] [facility] Test (1) [code = COVID-19 VACCINE (1)] Encounters Start End Encounter Admission Attending Care Care Encounter Source Date/Time Date/Time Type Type Clinicians Facility Department ID 2022-05-18 2022-05-18 Outpatient R NELLA [facility] [id number] Univers 15:00:00 15:00:00 NORRIS torres [facility] [place] [facility] 2022-05-02 2022-05-02 Emergency X MINO [facility] ERT [id number] Univers 03:08:00 05:17:00 RAHAT torres [facility] [place] [facility] 2022-05-02 2022-05-02 Emergency Mino [facility] [id number] Univers 03:08:00 05:17:00 Rahat COLE [id number] i ty of [place] [id number] [facility] CAMPUS [id number] [facility] 084 [place] 2021-09-17 2021-09-17 Outpatient R BARRY [facility] [id number] Univers 15:00:00 15:00:00 LUDWIG bradyy o f [facility] 2021-09-04 2021-09-04 Emergency E CANDIDAEZEQUIEL, [facility] [id number] Memoria 04:08:00 08:55:00 MATILDA eugene [facility] 2021-07-02 2021-07-02 Outpatient R DESEAN ELAINE [facility] [id number] Univers 15:15:00 [facility] 2021-04-20 2021-04-20 Outpatient R HERNANDEZ [facility] [id number] Univers 11:40:00 11:40:00 ARGELIA ronquillo [facility] 2021-02-11 2021-02-11 Outpatient R XOCHITL ANTONEN [facility] [id number] Univers 09:00:00 09:00:[facility] 2021-01-23 2021-01-23 Telephone Elaine Anton [facility] [id number] Univers 00:00:00 00:00:00 Hussein Cole [id number] i ty of [place] [id number] [facility] Professio [id number] [place] [address] 2021-01-23 2021-01-23 Telephone Elaine Anton [facility] [id number] 00:00:00 00:00:00 Hussein Cole [id number] [place] [id number] Professio [id number] [address] 2020-12-18 2020-12-18 Office Elaine Anton [facility] [id number] Univers 14:03:40 15:09:53 Visit Hussein [place] [id number] i ty [place] [id number] [place] Profess[place] [id number] [address] 2020-12-18 2020-12-18 [facility] [id number] 14:03:40 15:09:53 Visit Cam [place] [id number] [place] [id number] Professio [id number] [address] 2020-12-18 2020-12-18 Outpatient R ELAINE ANTON [facility] [id number] [facility] 13:45:00 13:45:00 ity [facility] 2020-12-18 2020-12-18 Orders Doctor YASMIN [id number] [facility] 00:00:00 00:00:00 Only Unassigned, COLLEEN [id number] ity of [place] [facility] [id number] Joe as [id number] [address] 2020-12-18 2020-12-18 Orders Doctor YASMIN [id number] 00:00:00 00:00:00 Only Unassigned, COLLEEN [id number] [place] [facility] [id number] [facility] 2020-12-17 2020-12-17 Office Desean [facility] [id number] [facility] 15:43:26 16:47:02 Visit Hussein Cole [id number] [place] [phone] [address] 2020-12-17 2020-12-17 Outpatient R DESEAN [facility] [id number] Univers 16:00:00 16:00:00 ity [facility] 2020-11-24 2020-11-24 Telephone Desean [facility] [id number] Univers 00:00:00 00:00:00 Cam Mela [id number] [place] [facility] [phone] Nj dical nal [address] [facility] 2020-10-31 2020-10-31 Outpatient Bruce [facility] [id number] Univers 16:20:00 16:20:00 [facility] 2020-09-30 2020-09-30 Outpatient Bruce [facility] [id number] Univers 15:50:00 15:50:00 PEDRO ity [facility] 2019-09-25 2019-09-25 Urgent Magno, Ariana [facility] [id number] Univers 18:00:22 18:15:22 Care Unknown, Attending Health [id number] ity of Surgical 4.2.7.2.686 Joe as Specialti [phone] Nj dical es 370 [facility] 2019-09-25 2019-09-25 Orders Doctor YASMIN [id number] Univers 00:00:00 00:00:00 Only Unassigned, COLLEEN 350.1.13.10 ity of [place] [facility] 4.2.7.2.686 Joe as [phone] [facility] [address] [place] 2019-04-14 2019-04-[address] [facility] [id number] Univers 13:29:58 16:53:00 Nishant Cole 350.1.13.10 [place] [phone] [facility] [address] 2019-04-14 2019-04-14 Orders Doctor YASMIN [id number] Univers 00:00:00 00:00:00 Only Unassigned, COLLEEN 350.1.13.10 ity of [place] [facility] 4.2.7.2.686 Joe as [id number] [address] Results Test Description Test Time Test Comments Results Result Comments Source POCT TEST 2022-05-02 08:17:00 Test Item Value Reference Range Interpretation Comme nts POCT PREG (test code = 1605) neg On board controls acceptable with C Line (test code = 3574) yes POCT PREG LOT # (test code = 3575) [id number] POCT PREG TEST DATE (test code = 3576) 07/05/2023 Lab Interpretation (test code = 66907-5) Normal [facility] [id number] 21:08:00 Test Item Value Reference Range Interpretation Comments POCT PREG (test code Negative = 1605) On board controls Yes acceptable with C Line (test code = 3574) POCT PREG LOT # (test code = 3575) POCT PREG TEST DATE (test code = 3576) ALVIN (test code = ALVIN) accurate development and interpretation of all internal controls [facility] [id number] 21:08:00 Test Item Value Reference Range Interpretation Comments POCT PREG (test code Negative = 1605) On board controls Yes acceptable with C Line (test code = 3574) POCT PREG LOT # (test code = 3575) POCT PREG TEST DATE (test code = 3576) ALVIN (test code = ALVIN) accurate development and interpretation of all internal controls [facility] FLU A AND B (MOLECULAR)2019-09-26 00:27:00 Test Item Value Reference Range Interpretation Comments POCT INFLUENZA A (test pos Negative - code = 3840) Negative POCT INFLUENZA B (test neg Negative - code = 3841) Negative ALVIN (test code = ALVIN) accurate development and interpretation of all internal controls Lab Interpretation Abnormal (test code = 94190-1) [facility] METABOLIC PANEL (05117)2019-04-14 19:57:00 Test Item Value Reference Range Interpretation Comments NA (test code = 142 mmol/L 135-145 6877084495) K (test code = 3.8 mmol/L 3.5-5 0075499998) CL (test code = 105 mmol/L 98-108 8410914251) CO2 TOTAL (test code = 26 mmol/L 23-31 2406357787) AGAP (test code = 2-16 6736364304) BUN (test code = 15 mg/dL 7-23 4787127813) GLUCOSE (test code = 118 mg/dL 70-110 H 2742921654) CREATININE (test code = 0.83 mg/dL 0.5-1.04 1015387389) TOTAL BILI (test code = 0.4 mg/dL 0.1-1.6 2477908048) CALCIUM (test code = 9.0 mg/dL 8.6-10.6 5075086436) T PROTEIN (test code = 7.9 g/dL 6.3-8.2 8456957965) ALBUMIN (test code = 4.3 g/dL 3.5-5 0302065067) ALK PHOS (test code = 72 U/L 34-122 4976610179) ALT(SGPT) (test code = 25 U/L 9-51 9681966170) AST(SGOT) (test code = 29 U/L 13-40 7481950288) eGFR Calculation mL/min/1.73m2 (Non-) (test code = 2189189214) eGFR Calculation mL/min/1.73m2 () (test code = 0090389462) ALVNI (test code = ALVIN) Association of Glomerular [...] tests). Lab Interpretation Abnormal (test code = 39199-6) [facility] 19:57:00 Test Item Value Reference Range Interpretation Comments LIPASE (test code = 4102897909) 99 U/L 0-220 Lab Interpretation (test code = Normal 01658-8) [facility]2019-08-10 19:52:00 Test Item Value Reference Range Interpretation Comments APPEARANCE (test code Slightly Cloudy Clear A = 6520446217) COLOR (test code = Yellow Yellow 6729705076) PH (test code = 4.8-8.0 0448777846) SP GRAVITY (test code 1.003-1.030 = 9352101851) GLU U QUAL (test code Negative Negative = 8776091118) BLOOD (test code = Negative Negative 0247371645) KETONES (test code = Negative Negative 3772333963) PROTEIN (test code = Negative Negative 2887-8) UROBILIN (test code = 0.2 mg/dL See_Comment [Auto mated 8525894062) message] The system which generated this result transmit doc reference range : 0-1.0 mg/dL. Th e reference range was not used to interpret this result as normal/abnormal . BILIRUBIN (test code Negative Negative = 1242802920) NITRITE (test code = Negative Negative 4501643756) LEUK LAURA (test code Negative Negative = 5670692498) RBC/HPF (test code = See_Comment [Autom ated 5707307584) message] The system which generated this result transmit doc reference range : 0 - 3 HPF. The reference range was not used to interpret this result as normal/abnormal . WBC/HPF (test code = See_Comment H [Autom ated 0645188153) message] The system which generated this result transmit doc reference range : 0 - 5 HPF. The reference range was not used to interpret this result as normal/abnormal . BACTERIA (test code = Many Negative A 2158503536) MUCOUS (test code = Marked Negative LPF A 4100543034) SQ EPITH (test code = HPF 8891907881) Lab Interpretation Abnormal (test code = 91895-0) [facility] [id number] 19:34:00 Test Item Value Reference Range Interpretation Comments WBC (test code = See_Comment [Automated 2090-2) message] The sy stem which generated this result transmitted reference range : 4.30 - 11.10 10*3/?L. The reference range was not used to interpret this result as normal/abnormal . RBC (test code = See_Comment [Automated 429-8) message] The sy stem which generated this [...] RDW-SD (test code = 40.2 fL 39-49.9 23132-0) RDW-CV (test code = 16.0 % 12-15.5 H 788-0) PLT (test code = See_Comment H [Automated 777-3) message] The sy stem which generated this result transmitted reference range : 166 - 358 10*3/ ?L. The reference r layton was not used to interpret this result as normal/abnormal . MPV (test code = 9.3 fL 9.5-12.9 L 04816-5) NRBC/100 WBC (test See_Comment [Automat ed code = 4318360290) message] The system which generated this result transmitted reference range : 0.0 - 10.0 /100 WBCs. The refer ence range was not u sed to interpret th is result as normal/abnormal . NRBC x10^3 (test code <0.01 See_Comment [Auto mated = 4558225681) message] The s ystem which generated this result transmitted reference range : 10*3/?L. The reference range was not used to interpret this result as normal/abnormal . GRAN MAT (NEUT) % 76.1 % (test code = 770-8) IMM GRAN % (test code 0.30 % = 5187417667) LYMPH % (test code = 14.9 % 736-9) MONO % (test code = 8.3 % 5905-5) EOS % (test code = 0.3 % 713-8) BASO % (test code = 0.1 % 706-2) GRAN MAT x10^3(ANC) 5.66 10*3/uL 1.88-7.09 (test code = 8785924933) IMM GRAN x10^3 (test <0.03 0-0.06 code = 0909354979) LYMPH x10^3 (test code 1.11 10*3/uL 1.32-3.29 L = 731-0) MONO x10^3 (test code 0.62 10*3/uL 0.33-0.92 = 742-7) EOS x10^3 (test code = <0.03 0.03-0.39 L 711-2) BASO x10^3 (test code <0.03 0.01-0.07 = 704-7) Lab Interpretation Abnormal (test code = 15267-4) [facility] [id number] 19:02:00 Test Item Value Reference Range Interpretation Comments POCT PREG (test code = 1605) negative On board controls acceptable with present C Line (test code = 3574) POCT PREG LOT # (test code = 3575) [id number] POCT PREG TEST DATE (test 2020-09-04 code = 3576) Lab Interpretation (test code = Normal 55984-8) [facility]"
[2022-11-12 00:34] LABS: Urine Blood Negative (Negative); Urine Glucose Negative (Negative); Urine Protein Negative (Negative); Urine pH 7.5 (5.0-7.0)
[2022-11-12] MEDS ORDERED: MORPHINE 4 MG/ML SYR ONE (00:50)
[2022-11-12] MEDS ORDERED: ONDANSETRON 4 MG/2 ML VIAL ONE (00:50)
[2022-11-12] MEDS ORDERED: NA CHLORIDE 0.9% 1,000 ML ONE (00:55)
[2022-11-12] MEDS ORDERED: FAMOTIDINE 20 MG/2 ML VIAL IV ONE (00:56)
[2022-11-12 01:10] LABS: Absolute Lymphocytes (CBC) 3.6 K/uL (0.7-4.9); Hematocrit 37.4 % (36.0-45.0); Lymphocytes % 33.5 % (15.3-44.8); MPV 8.4 fL (7.6-11.3)
[2022-11-12 01:17] LABS: Urine Bacteria <20 /HPF (<20); Urine RBC <5 /HPF (None Seen)
[2022-11-12 04:28] LABS: Albumin 3.3 g/dL (3.4-5.0)
[2022-11-12 04:32] LABS: Bilirubin Total 0.2 mg/dL (0.2-1.0); Protein, Total 7.2 g/dL (6.4-8.2)
[2022-11-12 05:04] VITALS: BP 123/97; TEMP 98; O2SAT 99
--- NOTE | 2022-11-12 12:25 | RAD REPORT ---
EXAM DESCRIPTION: CT - Abdomen Pelvis W Contrast - 11/12/2022 6:14 am CLINICAL HISTORY: The patient is 26 years old and is Female; RQ PAIN TECHNIQUE: Axial computed tomography images of the abdomen and pelvis with intravenous contrast. S agittal and coronal reformatted images were created and reviewed. This CT exam was performed using one or more of the following dose reduction techniques: automated exposure control, adjustment of t he mA and/or kV according to patient size, and/or use of iterative reconstruction technique. COMPARISON: No relevant prior studies available. FINDINGS: Lung bases: Unremarkable. No mass. No consolidation. ABDOMEN: Liver: Unremarkable. No mass. Gallbladder and bile ducts: Cholelithiasis. No ductal dilation. Pancreas: Unremarkable. No mass. No ductal dilation. Spleen: Unremarkable. No splenomegaly. Adrenals: Unremarkable. No mass. Kidneys and ureters: Unremarkable. No solid mass. No hydronephrosis. Stomach and bowel: Unremarkable. No obstruction. No mucosal thickening. PELVIS: Appendix: The appendix is normal. Bladder: Unremarkable. Reproductive: 1.3 cm simple right ovarian cyst. No follow-up imaging is recommended. ABDOMEN and PELVIS: Intraperitoneal space: Unremarkable. No free air. No significant fluid collection. Bones/joints: No acute fracture. No dislocation. Soft tissues: Unremarkable. Vasculature: Unremarkable. No abdominal aortic aneurysm. Lymph nodes: Unremarkable. No enlarged lymph nodes. IMPRESSION: No acute finding in the abdomen/pelvis. Electronically signed by: Sudheer France MD 11/12/2022 2:42 AM CREW CHIEF Due to temporary technical issues with the PACS/Fluency reporting system, reports are being signed by the in house radiologists without review as a courtesy to insure prompt reporting. The interpreting radiologist is fully responsible for the content of the report.
--- NOTE | 2022-11-26 15:18 | EDPHYS ---
Physician Documentation [facility] Name: Cher Ragland Age: 26 yrs Sex: Female : 1995 Arrival Date: 11/11/2022 Time: 23:56 Bed 5 Private MD: ED Physician Abhilash Milton HPI: 11/12 03:56 This 26 yrs old Black Female presents to ER via Ambulatory with complaints of Abdominal atilio Pain. 03:56 The patient presents with abdominal pain in the epigastric area, in the right upper atilio quadrant. Onset: The symptoms/episode began/occurred 2 day(s) ago. The symptoms do not radiate. Associated signs and symptoms: none. The symptoms are described as crampy. Modifying factors: The symptoms are alleviated by nothing, the symptoms are aggravated by nothing. Severity of pain: At its worst the pain was mild moderate in the emergency department the pain has resolved and did so just prior to arrival. The patient has not experienced similar symptoms in the past. 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 - Social history:: Smoking status: Patient denies any tobacco usage or history of. - Family history:: not pertinent. ROS: 03:56 Constitutional: Negative for fever, chills, and weight loss, Eyes: Negative for injury, atilio pain, redness, and discharge, ENT: Negative for injury, pain, and discharge, Neck: Negative for injury, pain, and swelling, Cardiovascular: Negative for chest pain, palpitations, and edema, Respiratory: Negative for shortness of breath, cough, wheezing, and pleuritic chest pain, Back: Negative for injury and pain, : Negative for injury, bleeding, discharge, and swelling, MS/Extremity: Negative for injury and deformity, Skin: Negative for injury, rash, and discoloration, Neuro: Negative for headache, weakness, numbness, tingling, and seizure, Psych: Negative for depression, anxiety, suicide ideation, homicidal ideation, and hallucinations, Allergy/Immunology: Negative for hives, rash, and allergies, Endocrine: Negative for neck swelling, polydipsia, polyuria, polyphagia, and marked weight changes, Hematologic/Lymphatic: Negative for swollen nodes, abnormal bleeding, and unusual bruising. 03:56 Abdomen/GI: Positive for abdominal pain, nausea, of the right upper quadrant and right lower quadrant. Exam: 03:56 Constitutional: This is a well developed, well nourished patient who is awake, alert, atilio and in no acute distress. Head/Face: Normocephalic, atraumatic. Eyes: Pupils equal round and reactive to light, extra-ocular motions intact. Lids and lashes normal. Conjunctiva and sclera are non-icteric and not injected. Cornea within normal limits. Periorbital areas with no swelling, redness, or edema. ENT: Nares patent. No nasal discharge, no septal abnormalities noted. Tympanic membranes are normal and external auditory canals are clear. Oropharynx with no redness, swelling, or masses, exudates, or evidence of obstruction, uvula midline. Mucous membranes moist. Neck: Trachea midline, no thyromegaly or masses palpated, and no cervical lymphadenopathy. Supple, full range of motion without nuchal rigidity, or vertebral point tenderness. No Meningismus. Chest/axilla: Normal chest wall appearance and motion. Nontender with no deformity. No lesions are appreciated. Cardiovascular: Regular rate and rhythm with a normal S1 and S2. No gallops, murmurs, or rubs. Normal PMI, no JVD. No pulse deficits. Respiratory: Lungs have equal breath sounds bilaterally, clear to auscultation and percussion. No rales, rhonchi or wheezes noted. No increased work of breathing, no retractions or nasal flaring. Back: No spinal tenderness. No costovertebral tenderness. Full range of motion. Skin: Warm, dry with normal turgor. Normal color with no rashes, no lesions, and no evidence of cellulitis. MS/ Extremity: Pulses equal, no cyanosis. Neurovascular intact. Full, normal range of motion. Neuro: Awake and alert, GCS 15, oriented to person, place, time, and situation. Cranial nerves II-XII grossly intact. Motor strength 5/5 in all extremities. Sensory grossly intact. Cerebellar exam normal. Normal gait. Psych: Awake, alert, with orientation to person, place and time. Behavior, mood, and affect are within normal limits. 03:56 Abdomen/GI: Inspection: abdomen appears normal, Bowel sounds: normal, Palpation: abdomen is soft and non-tender, Liver: no appreciated palpable abnormalities, Hernia: not appreciated. Vital Signs: 00:19 BP 123 / 97; Pulse 78; Resp 18; Temp 98(O); Pulse Ox 99% ; Weight 85.28 kg; Height 5 vc1 ft. 1 in. ; Pain 8/10; 00:19 Body Mass Index 35.52 (85.28 kg, 154.94 cm) vc1 00:19 Pain Scale: Adult vc1 [place] Coma Score: 04:30 Eye Response: spontaneous(4). Motor Response: obeys commands(6). Verbal Response: atilio oriented(5). Total: 15. MDM: 00:17 Patient medically screened. atilio 04:05 Differential diagnosis: bowel obstruction, cholecystitis, Cholelithiasis, atilio diverticulitis, Mesenteric ischemia or infarction, non-specific abd pain. Data reviewed: vital signs, nurses notes, lab test result(s), radiologic studies, CT scan, ultrasound. Consideration of Admission/Observation Escalation of care including admission/observation considered. Test considered but Not performed: Ultrasound gb, labs nl , past us reviewed. Care significantly affected by the following chronic conditions: anxiety, nutcracker, depression. 11/12 00:18 Order name: CBC with Diff; Complete Time: 02:20 atilio 11/12 00:18 Order name: [facility] 11/12 00:18 Order name: Lip[facility] 11/12 00:18 Order name: Urine Microscopic Only; Complete Time: 02:20 atilio 11/12 00:34 Order name: Urine Dipstick-Ancillary; Complete Time: 02:20 EDMS 11/12 00:35 Order name: Urine --Ancillary (enter results); Complete Time: 02:20 kj1 11/12 03:01 Order name: CREATININE WHOLE BLOOD; Complete Time: 03:52 EDMS 11/12 00:18 Order name: CT Abd/Pelvis - IV Contrast Only 11/12 00:18 Order name: IV Saline Lock; Complete Time: 00:44 [facility] 11/12 00:18 Order name: Labs collected and sent; Complete Time: 00:44 [facility] 11/12 00:18 Order name: Urine Dipstick-Ancillary (obtain specimen); Complete Time: 00:44 [facility] 11/12 00:18 Order name: Urine Test (obtain specimen); Complete Time: 00:44 [facility] Administered Medications: 00:49 Drug: Ondansetron IVP 4 mg Route: IVP; Site: left antecubital; vc1 00:49 Drug: morphine IVP or IV 4 mg Route: IVP; Infused Over: 4 mins; Site: left antecubital; vc1 00:55 Drug: Famotidine IVP 20 mg Route: IVP; Site: left antecubital; vc1 00:56 Drug: NS 0.9% IV 1000 ml Route: IV; Rate: 1 bolus; Site: left antecubital; vc1 Disposition Summary: 11/12/22 04:23 Discharge Ordered Location: Home atilio Problem: new atilio Symptoms: have improved atilio Condition: Stable atilio Diagnosis - Calculus of gallbladder without cholecystitis without obstruction atilio - Functional dyspepsia atilio Followup: atilio - With: Private Physician - When: 2 - 3 days - Reason: Recheck today's complaints, Continuance of care, Re-evaluation by your physician Followup: atilio - With: - When: 2 - 3 days - Reason: Recheck today's complaints, Re-evaluation by your physician Discharge Instructions: - Discharge Summary Sheet atilio - Biliary Colic, Adult atilio - Indigestion atilio - Cholelithiasis atilio - Cholelithiasis, Fquj-[id number] [facility] Forms: - Medication Reconciliation Form [facility] - Thank You Letter [facility] - Antibiotic Education [facility] - Prescription Opioid Use [facility] Prescriptions: - Pepcid 20 mg Oral Tablet - take 1 tablet by ORAL route every 12 hours for 21 days; 42 tablet; Refills: 0, [facility] Product Selection Permitted - Zofran 4 mg Oral Tablet - take 1 tablet by ORAL route every 12 hours As needed; 20 tablet; Refills: 0, [facility] Product Selection Permitted - dicyclomine 20 mg Oral Tablet - take 1 tablet by ORAL route 4 times per day; 28 tablet; Refills: 0, Product [facility] Selection Permitted Signatures: Dispatcher [employer] Abhilash Mooney MD MD cha Calcote, Vanessa, RN RN vc1
--- NOTE | 2022-11-26 15:18 | ER ---
Nurse's Notes [facility] Name: Cher Ragland Age: 26 yrs Sex: Female : 1995 Arrival Date: 11/11/2022 Time: 23:56 Bed 5 Private MD: Diagnosis: Calculus of gallbladder without cholecystitis without obstruction;Functional dyspepsia Presentation: 11/12 00:19 Chief complaint: Patient states: "I am having sharp pain in my right abdomen, worse vc1 when I push on it. I have thrown up twice.". Coronavirus screen: Vaccine status: Patient reports receiving the 2nd dose of the covid vaccine. plus booster; [place] Client denies travel out of the [place] in the last 14 days. nausea, vomiting. Client presents with at least one sign or symptom that may indicate coronavirus-19. Standard/surgical mask placed on the client. Provider contacted for isolation considerations. Ebola Screen: Patient negative for fever greater than or equal to 101.5 degrees Fahrenheit, and additional compatible Ebola Virus Disease symptoms Patient denies exposure to infectious person. Patient denies travel to an Ebola-affected area in the 21 days before illness onset. No symptoms or risks identified at this time. Initial Sepsis Screen: Does the patient meet any 2 criteria? No. Patient's initial sepsis screen is negative. Does the patient have a suspected source of infection? No. Patient's initial sepsis screen is negative. Risk Assessment: Do you want to hurt yourself or someone else? Patient reports no desire to harm self or others. Onset of symptoms was November 11, 2022 at 17:00. 00:19 Method Of Arrival: Ambulatory vc1 00:19 Acuity: MANAV 3 vc1 Triage Assessment: 00:22 General: Appears in no apparent distress. uncomfortable, ill, Behavior is cooperative. vc1 Pain: Complains of pain in right upper quadrant Pain does not radiate. Pain radiates to anterior aspect of right lateral abdomen Pain currently is 8 out of 10 on a pain scale. Quality of pain is described as sharp. EENT: No deficits noted. No signs and/or symptoms were reported regarding the EENT system. Neuro: Level of Consciousness is awake, alert, obeys commands, Oriented to person, place, time, situation, Appropriate for age. Cardiovascular: No deficits noted. Respiratory: Airway is patent Respiratory effort is even, unlabored, Respiratory pattern is regular, symmetrical. GI: Abdomen is flat, non-distended, Abd is soft Abdomen is tender to palpation in right upper quadrant Guarding noted. : No deficits noted. No signs and/or symptoms were reported regarding the genitourinary system. Derm: No deficits noted. No signs and/or symptoms reported regarding the dermatologic system. Musculoskeletal: No deficits noted. No signs and/or symptoms reported regarding the musculoskeletal system. 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 - Social history:: Smoking status: Patient denies any tobacco usage or history of. - Family history:: not pertinent. Screenin:23 Abuse screen: Denies threats or abuse. Nutritional screening: No deficits noted. vc1 Tuberculosis screening: No symptoms or risk factors identified. Vital Signs: 00:19 BP 123 / 97; Pulse 78; Resp 18; Temp 98(O); Pulse Ox 99% ; Weight 85.28 kg; Height 5 vc1 ft. 1 in. ; Pain 8/10; 00:19 Body Mass Index 35.52 (85.28 kg, 154.94 cm) vc1 00:19 Pain Scale: Adult vc1 Jose Coma Score: 04:30 Eye Response: spontaneous(4). Motor Response: obeys commands(6). Verbal Response: atilio oriented(5). Total: 15. ED Course: 11/11 23:56 Patient arrived in ED. es 03 00:17 Abhilash Milton MD is Attending Physician. [facility] 00:21 Triage completed. vc1 00:23 Arm band placed on right wrist. vc1 00:44 Inserted saline lock: 22 gauge in left antecubital area, using aseptic technique. Blood vc1 collected. 02:16 CT Abd/Pelvis - IV Contrast Only In Process Unspecified. EDMS 04:23 Steve Hernandez MD is Referral Physician. atilio Administered Medications: 00:49 Drug: Ondansetron IVP 4 mg Route: IVP; Site: left antecubital; vc1 00:49 Drug: morphine IVP or IV 4 mg Route: IVP; Infused Over: 4 mins; Site: left antecubital; vc1 00:55 Drug: Famotidine IVP 20 mg Route: IVP; Site: left antecubital; vc1 00:56 Drug: NS 0.9% IV 1000 ml Route: IV; Rate: 1 bolus; Site: left antecubital; vc1 Medication: 00:23 VIS not applicable for this client. vc1 Outcome: 04:23 Discharge ordered by . atilio 04:48 Patient left the ED. bb Signatures: Dispatcher [employer] Abhilash Mooney MD MD cha Salyer, Edna es Ballard, Brenda RN RN bb Amira Meyer RN RN vc1 Claudia Zayas RN RN ha1 Corrections: (The following items were deleted from the chart) 05:17 02:10 Reassessment: Patient and/or family updated on plan of care and expected ha1 duration. Pain level reassessed. Patient is alert, oriented x 3, equal unlabored respirations, skin warm/dry/pink. Patient states symptoms have improved. ha1
== END 2022-11-12 04:48 | disposition home or self-care (01) ==
LOC: ER 23:51
DX: K80.20 Calculus of gallbladder without cholecystitis without obstruction (principal); K30 Functional dyspepsia; F31.9 Bipolar disorder, unspecified
CPT/HCPCS: 36415; 74177; 80053; 81003; 81015; 81025; 82565; 83690; 85025; 96374; 96375; 99284; J2405; J7030; Q9967